=== PATIENT | male | born 1970 | race Caucasian/White ===

== ENCOUNTER 2017-06-04 16:06 | Inpatient (IN) | END 2017-06-05 13:30 | disposition home or self-care (01) | DRG 392 ==

== ENCOUNTER 2017-07-08 09:58 | Emergency (ER) | END 2017-07-08 12:17 | disposition home or self-care (01) ==

== ENCOUNTER 2017-09-15 01:16 | Inpatient (IN) | END 2017-09-23 17:10 | disposition home or self-care (01) | DRG 438 ==

== ENCOUNTER 2017-11-18 12:56 | Emergency (ER) | END 2017-11-18 18:21 | disposition home or self-care (01) ==

== ENCOUNTER 2018-06-14 20:49 | Emergency (ER) | payer OTHER ==
[~2018-06-14] VITALS: Ht 172.7 cm; Wt 96.3 kg
[2018-06-14 21:13] VITALS: Ht 172.7 cm; Wt 96.3 kg
[2018-06-14] MEDS ORDERED: SOD CHLORIDE 0.9% 960 ML IV ONE (21:30)
[2018-06-14] MEDS ORDERED: ONDANSETRON 4 MG INJ IV STA (23:02)
[2018-06-14] MEDS ORDERED: LIDOCAINE/MYLANTA 40 ML BTL PO ONE (23:30)
--- NOTE | 2018-06-15 00:37 | ERD ---
ER Documentation Chief Complaint Chief Complaint Pt c/o weak and dizzy hx of HTN and DM HPI Is a 48-year-old complains of weakness and dizziness epigastric abdominal pain. Patient has history of hypertension and diabetes. Pain in epigastric region is mild to moderate intensity with no exacerbating relieving factors. Weakness is generalized with no focality. Denies any difficulty talking. Denies any difficulty ambulating. Denies any other current issues. ROS All systems reviewed and are negative except as per history of present illness. Medications Home Meds No Active Prescriptions or Reported Meds Allergies Allergies: Coded Allergies: morphine (Verified Allergy, Mild, 11/18/17) rashes, itch after administered morphine PMhx/Soc History of Surgery: No Anesthesia Reaction: No Hx Neurological Disorder: No Hx Respiratory Disorders: No Hx Cardiac Disorders: No Hx Psychiatric Problems: No Hx Miscellaneous Medical Probl: Yes (DM) Hx Alcohol Use: No Hx Substance Use: No Hx Tobacco Use: No Smoking Status: Never smoker Physical Exam Vitals Vital Signs Date Temp Pulse Resp B/P (MAP) Pulse Ox O2 O2 Flow FiO2 Time Delivery Rate 06/15/18 97.4 86 20 135/82 97 Room Air 00:03 (99) 06/14/18 97.4 82 13 155/90 96 Room Air 23:15 (111) 06/14/18 97.4 80 13 150/100 96 Room Air 22:34 (117) 06/14/18 97.4 79 20 157/103 96 Room Air 21:50 (121) 06/14/18 97.4 89 20 183/109 96 21:13 (133) Physical Exam Const: No acute distress Head: Atraumatic Eyes: Normal Conjunctiva ENT: Normal External Ears, Nose and Mouth. Neck: Full range of motion. No meningismus. Resp: Clear to auscultation bilaterally Cardio: Regular rate and rhythm, no murmurs Abd: Soft, non tender, non distended. Normal bowel sounds Skin: No petechiae or rashes Back: No midline or flank tenderness Ext: No cyanosis, or edema Neur: Awake and alert Psych: Normal Mood and Affect Result Diagram: 06/14/18214506/14/182145 Results 24 hrs Laboratory Tests Test 06/14/18 21:12 06/14/18 21:27 06/14/18 21:44 06/14/18 21:46 Bedside Glucose 157 mg/dL 140 mg/dL Blood Gas Blood venous Specimen Source Arterial Blood 06/14/2018 9:38: Date Drawn 10 PM Arterial Blood VENOUS LINE Gas Puncture Site Jarred Test N/A Venous Blood pH 7.399 Venous Blood 38.2 mmHG pCO2 (Temp Corrected) Venous Blood pO2 72.5 mmHG (Temp Corrected) Venous Blood 23.1 mmol/L HCO3 Venous Blood 93.6 mmHG Oxygen Saturation Venous Blood -1.4 mmol/L Base Excess Venous Blood 15.2 g/dl Total Hemoglobin Venous Blood 93.3 % Oxyhemoglobin Venous Blood 0.2 % Methemoglobin Carboxyhemoglobi 0.1 % n Blood Gas 37.0 C Temperature Blood Gas ROOM AIR Modality FiO2 21.0 % Blood Gas AA Notified Whom Blood Gas 06/14/2018 9:45: Notified Time 05 PM White Blood 4.0 10^3/ul Count Red Blood Count 5.01 10^6/ul Hemoglobin 14.5 g/dl Hematocrit 40.9 % Mean Corpuscular 81.6 fl Volume Mean Corpuscular 28.9 pg Hemoglobin Mean Corpuscular 35.5 g/dl Hemoglobin Joan nt Red Cell 12.7 % Distribution Width Platelet Count 263 10^3/UL Mean Platelet 8.5 fl Volume Immature 0.300 % Granulocytes % Neutrophils % 43.5 % Lymphocytes % 44.1 % Monocytes % 7.3 % Eosinophils % 3.8 % Basophils % 1.0 % Nucleated Red 0.0 /100WBC Blood Cells % Immature 0.010 10^3/ul Granulocytes # Neutrophils # 1.7 10^3/ul Lymphocytes # 1.7 10^3/ul Monocytes # 0.3 10^3/ul Eosinophils # 0.2 10^3/ul Basophils # 0.0 10^3/ul Nucleated Red 0.0 10^3/ul Blood Cells # Urine Color YELLOW Urine Clarity CLEAR Urine pH 7.0 Urine Specific 1.013 [place] Urine Ketones NEGATIVE mg/dL Urine Nitrite NEGATIVE mg/dL Urine Bilirubin NEGATIVE mg/dL Urine NEGATIVE mg/dL Urobilinogen Urine Leukocyte NEGATIVE Ginette/ul Esterase Urine Hemoglobin NEGATIVE mg/dL Urine Glucose NEGATIVE mg/dL Urine Total NEGATIVE mg/dl Protein Sodium Level 142 mmol/L Potassium Level 4.2 mmol/L Chloride Level 102 mmol/L Carbon Dioxide 23 mmol/L Level Anion Gap 17 Blood Urea 8 mg/dl Nitrogen Creatinine 0.72 mg/dl Est Glomerular > 60 mL/min Filtrat Rate mL/min Glucose Level 147 mg/dl Calcium Level 9.7 mg/dl Phosphorus Level 4.6 mg/dl Magnesium Level 1.7 mg/dl Total Bilirubin 0.3 mg/dl Direct Bilirubin 0.00 mg/dl Indirect 0.3 mg/dl Bilirubin Aspartate Amino 53 IU/L Transf (AST/SGOT ) Alanine 46 IU/L Aminotransferase (ALT/SGPT) Alkaline 84 IU/L Phosphatase Troponin I < 0.012 ng/ml Total Protein 8.2 g/dl Albumin 4.6 g/dl Lipase 86 U/L Current Medications Medications Dose Sig/Bridger Start Time Status Last (Trade) Ordered Route PRN Stop Time Admin Dose Reason Admin Sodium 960 ml @ ONCE ONCE 06/14/18 DC 06/14/18 Chloride 960 mls/hr IV 21:30 21:46 06/14/18 22:29 Ondansetron 4 mg ONCE STAT 06/14/18 DC 06/14/18 HCl (Zofran IV 23:02 23:16 Inj) 06/14/18 23:03 40 ml ONCE ONCE 06/14/18 DC 06/14/18 Miscellaneous PO 23:30 23:49 Medication 06/14/18 23:31 (Gi Cocktail (2)) Procedures/MDM Emergency department course: Patient seen and evaluated triage nurse. Placed in bed from evaluation. Placed on continuous monitoring. Had a stat EKG and a stat chest x-ray. CT scan of his head done for generalized acute weakness. Serial exams were stable. Patient was given GI medications including a GI cocktail and Zofran. Diagnostic data: EKG: Rate/Rhythm: [Normal Sinus Rhythm] QRS, ST, T-waves: [No changes consistent w/ acute ischemia] Impression: [No evidence of ischemia or arrhythmia] Chest X-ray 1V Interpreted by me: Soft Tissue: No acute abnormali ties Bones: No acute abnormalities Mediastinum/Cardiac Silhouette/Lungs: [No acute abnormalities] Medical decision making: Patient's gastrointestinal symptoms have stabilized while in the department. No evidence of severe dehydration, sepsis, or surgical abdomen. Extensive discussion with family and patient that occult disease cannot be ruled out. 8 hour recheck for repeat abdominal exam is planned. Departure Diagnosis: Primary Impression: Gastritis Gastritis type: unspecified gastritis Chronicity: unspecified Gastritis bleeding: presence of bleeding unspecified Qualified Codes: K29.70 - Gastritis, unspecified, without bleeding Condition: Stable CHATO ODOM Jun 15, 2018 00:37
[2018-06-15] MEDS ORDERED: SUCR1TAB56 PO (00:38)
[2018-06-15] MEDS ORDERED: RANI150T35 PO (00:38)
[2018-06-15 01:04] VITALS: BP 167/106; PULSE 80; RESP 20
== END 2018-06-15 01:12 | disposition home or self-care (01) ==
LOC: E/R 20:49
DX: K29.70 Gastritis, unspecified, without bleeding (principal); I10 Essential (primary) hypertension; E11.9 Type 2 diabetes mellitus without complications
CPT/HCPCS: 36415; 70450; 71045; 80048; 80076; 81003; 82803; 82962; 83690; 83735; 84100; 84484; 85025; 93005; 96374; J2405; J7030; Z7502; Z7610

== ENCOUNTER 2018-07-16 03:57 | Emergency (ER) | payer OTHER ==
[~2018-07-16] VITALS: Ht 172.7 cm; Wt 95.8 kg
[~2018-07-16 03:57] MED LIST: RANI150T35 PO; SUCR1TAB56 PO
[2018-07-16 04:00] VITALS: Ht 172.7 cm; Wt 95.8 kg
[2018-07-16] MEDS ORDERED: SOD CHLORIDE 0.9% 1,000 ML IV STA (04:53)
[2018-07-16] MEDS ORDERED: FAMOTIDINE 20 MG INJ IV STA (04:53)
[2018-07-16] MEDS ORDERED: ONDANSETRON 4 MG INJ IV STA (04:53)
[2018-07-16] MEDS ORDERED: BELLADONNA/PHENOBARBITAL TAB PO STA (04:53)
[2018-07-16] MEDS ORDERED: LIDOCAINE/MYLANTA 40 ML BTL PO STA (04:53)
[2018-07-16] MEDS ORDERED: FENTAnyl 50 MCG/ML VIAL IV ONE (05:00)
--- NOTE | 2018-07-16 05:30 | ERD ---
ER Documentation Chief Complaint Chief Complaint abdominal pain since 1700 yesterday HPI This is a 48-year-old male with a past medical history of diabetes, alcohol abuse, gastritis/duodenitis, pancreatitis who is presenting with upper abdominal pain beginning at around 5 PM yesterday. The patient reports being with family over the last several days and drinking heavily. He reports drinking approximately 12 beers a day over the last several days. The patient endorses nausea but no vomiting. He does not endorse any constipation or diarrhea. He has not had any black or bloody or tarry stools. He has not had any dysuria or hematuria or urgency or frequency. The patient reports taking Carafate and ranitidine as previously prescribed, but that did not help his symptoms. The patient denies fever or chills. The patient has had no headache or vision changes. The patient does not endorse neck or back pain. The patient denies lightheadedness or dizziness. The patient has had no chest pain or trouble breathing. The patient has had no focal deficits. The patient has had no weakness or numbness or tingling to the face or extremities. ROS All systems reviewed and are negative except as per history of present illness. Medications Home Meds Active Scripts Ondansetron Hcl* (Zofran*) 8 Mg Tablet, 8 MG PO Q6H PRN for NAUSEA AND OR VOMITING, #20 TAB Prov:OSBALDO CEDENO MD 07/16/18 Omeprazole* (Omeprazole*) 40 Mg Capsule.dr, 40 MG PO DAILY, #14 CAP Prov:OSBALDO CEDENO MD 07/16/18 Ranitidine Hcl* (Zantac*) 150 Mg Tablet, 150 MG PO BID PRN for EPIGASTRIC PAIN, #30 TAB Prov:CHATO ODOM 06/15/18 Sucralfate* (Carafate*) 1 Gm Tab, 1 GM PO QID, #30 TAB Prov:CHATO ODOM 06/15/18 Allergies Allergies: Coded Allergies: morphine (Verified Allergy, Mild, 11/18/17) rashes, itch after administered morphine PMhx/Soc History of Surgery: No Anesthesia Reaction: No Hx Neurological Disorder: No Hx Respiratory Disorders: No Hx Cardiac Disorders: Yes (Diabetes) Hx Psychiatric Problems: No Hx Miscellaneous Medical Probl: Yes (Gastritis, duodenitis, pancreatitis) Hx Alcohol Use: Yes (Alcoholism) Hx Substance Use: No Hx Tobacco Use: No Smoking Status: Never smoker FmHx Family History: diabetes Physical Exam Vitals Vital Signs Date Temp Pulse Resp B/P (MAP) Pulse Ox O2 O2 Flow FiO2 Time Delivery Rate 07/16/18 97.9 80 18 151/99 97 Room Air 05:14 (116) 07/16/18 97.9 78 18 157/112 97 Room Air 04:12 (127) 07/16/18 97.9 93 18 206/112 97 04:00 (143) Physical Exam Const: No apparent distress, well-developed, well-nourished Head: Normocephalic, Atraumatic Eyes: Normal Conjunctiva. Extraocular movements intact. ENT: Normal External Ears, Nose and Mouth. Neck: Full range of motion. No meningismus. Resp: Clear to auscultation bilaterally, No wheezes, rales or rhonchi Cardio: Regular rate and rhythm. No murmurs, rubs or gallops Abd: Soft, non distended. Epigastric tenderness to palpation. Normal bowel sounds Skin: No petechiae or rashes Back: No midline tenderness. No CVA tenderness Ext: No cyanosis, or edema Neur: Awake and alert, oriented 4. Cranial nerves intact. No facial droop. Normal strength, sensation and coordination. Psych: Normal Mood and Affect Result Diagram: 07/16/187 07/16/18436 Results 24 hrs Laboratory Tests Test 07/16/18 04:37 07/16/18 04:48 White Blood Count 3.0 10^3/ul Red Blood Count 5.05 10^6/ul Hemoglobin 14.8 g/dl Hematocrit 40.9 % Mean Corpuscular Volume 81.0 fl Mean Corpuscular Hemoglobin 29.3 pg Mean Corpuscular Hemoglobin Concent 36.2 g/dl Red Cell Distribution Width 12.2 % Platelet Count 175 10^3/UL Mean Platelet Volume 8.4 fl Immature Granulocytes % 1.000 % Neutrophils % 33.6 % Lymphocytes % 55.7 % Monocytes % 7.0 % Eosinophils % 1.7 % Basophils % 1.0 % Nucleated Red Blood Cells % 0.0 /100WBC Immature Granulocytes # 0.030 10^3/ul Neutrophils # 1.0 10^3/ul Lymphocytes # 1.7 10^3/ul Monocytes # 0.2 10^3/ul Eosinophils # 0.1 10^3/ul Basophils # 0.0 10^3/ul Nucleated Red Blood Cells # 0.0 10^3/ul Sodium Level 139 mmol/L Potassium Level 4.0 mmol/L Chloride Level 100 mmol/L Carbon Dioxide Level 23 mmol/L Anion Gap 16 Blood Urea Nitrogen 7 mg/dl Creatinine 0.64 mg/dl Est Glomerular Filtrat Rate mL/min > 60 mL/min Glucose Level 153 mg/dl Calcium Level 9.4 mg/dl Total Bilirubin 0.6 mg/dl Direct Bilirubin 0.00 mg/dl Indirect Bilirubin 0.6 mg/dl Aspartate Amino Transf (AST/SGOT) 59 IU/L Alanine Aminotransferase (ALT/SGPT) 43 IU/L Alkaline Phosphatase 99 IU/L Total Protein 8.4 g/dl Albumin 4.3 g/dl Globulin 4.10 g/dl Albumin/Globulin Ratio 1.04 Lipase 125 U/L Urine Color YELLOW Urine Clarity CLEAR Urine pH 8.0 Urine Specific [place] 1.012 Urine Ketones TRACE mg/dL Urine Nitrite NEGATIVE mg/dL Urine Bilirubin NEGATIVE mg/dL Urine Urobilinogen NEGATIVE mg/dL Urine Leukocyte Esterase NEGATIVE Ginette/ul Urine Hemoglobin NEGATIVE mg/dL Urine Glucose NEGATIVE mg/dL Urine Total Protein NEGATIVE mg/dl Current Medications Medications Dose Sig/Bridger Start Time Status Last (Trade) Ordered Route PRN Stop Time Admin Dose Reason Admin Sodium 1,000 ml @ Q1H STAT 07/16/18 07/16/18 Chloride 1,000 mls/hr IV 04:53 05:07 07/16/18 05:52 Ondansetron 4 mg ONCE STAT 07/16/18 DC 07/16/18 HCl (Zofran IV 04:53 05:05 Inj) 07/16/18 04:55 Famotidine 20 mg ONCE STAT 07/16/18 DC 07/16/18 (Pepcid Iv) IV 04:53 05:06 07/16/18 04:55 40 ml ONCE STAT 07/16/18 DC 07/16/18 Miscellaneous PO 04:53 05:05 Medication 07/16/18 04:55 (Gi Cocktail (2)) Belladonna/ 2 tab ONCE STAT 07/16/18 DC 07/16/18 Phenobarbital PO 04:53 05:06 () 07/16/18 04:55 Fentanyl 50 mcg ONCE ONCE 07/16/18 DC 07/16/18 (Sublimaze) IV 05:00 05:06 07/16/18 05:01 Procedures/MDM MDM The patient's presentation warrants further investigation. Previous medical re cords, if available, were reviewed. LABS The patient's laboratory testing was obtained and reviewed. No emergent treatment was required unless described below. CBC: Mild leukopenia, which appears chronic compared to previous studies. No macrocytosis. No E/o systemic infection or severe anemia or thrombocytopenia Chemistry: No E/o severe acidosis or alkalosis or renal failure or liver disease or diabetic ketoacidosis Lipase: No E/o pancreatitis Urine: No E/o acute infection or hematuria EKG EKG read by me: Rate/Rhythm: Regular rate and rhythm at a rate of 78 bpm Intervals: Normal [place]: Normal Impression: No evidence of acute ischemia or arrhythmia IMAGING Imaging and Radiology interpretation reviewed. CXR 1V Interpreted by me Soft Tissue: No acute abnormalities Bones: No acute abnormalities Mediastinum/Cardiac Silhouette: Unremarkable. No widened mediastinum. Lungs: No acute abnormalities. Normal pulmonary vasculature. No pneumothorax. No pulmonary edema. Clear costal diaphragmatic angles. No pleural effusions. No opacity or consolidations concerning for pneumonia. TREATMENT/DISPOSITION The patient presents with upper abdominal pain. The patient has been drinking heavily, and I am suspicious of alcoholic gastritis. The patient was treated with IV fluids, Zofran, Pepcid, a GI cocktail, and eventually fentanyl in the emergency department with significant improvement of his symptoms. I encouraged the patient to continue taking the medications previously prescribed. I will also add on Prilosec and Zofran. The patient understands that continued heavy alcohol use will lead to significant irritation of the stomach. The patient does not have any evidence of peritonitis. The patient does not have clinical symptoms concerning for mesenteric ischemia or ischemic colitis. The patient does not have right upper quadrant tenderness, and I have low suspicion for gallstones, cholecystitis or biliary colic. The patient's lipase is within normal limits. I have low suspicion for pancreatitis. The patient does not have any right lower quadrant tenderness, or periumbilical tenderness. I have low suspicion for appendicitis. The patient does not have suprapubic tenderness. I have decreased suspicion for cystitis. The patient does not have any left low er quadrant tenderness, and I have low suspicion for diverticulosis or diverticulitis. The patient does not have any flank tenderness. The patient does not have gross hematuria. I have decreased suspicion for nephrolithiasis or renal colic. The patient does not have any palpable pulsatile mass or severe abdominal pain radiating to the back. I have low suspicion for aortic aneurysm, dissection or rupture. DISCHARGE Upon reevaluation of the patient, symptoms have improved. No emergent diagnoses were identified. At this time, I feel that the patient stable for discharge. The patient was instructed to follow-up with a primary care physician in 1-3 days. The patient will be given strict precautions with which to return to the emergency department. Prescriptions: Prilosec, Zofran The patient's blood pressure was elevated at greater than 120/80 while in the emergency department. The patient was otherwise stable with no evidence of hypertensive urgency or emergency. The patient does not require admission for blood pressure control. I have discussed with the patient the risks of hy pertension. I have instructed the patient to return to the ER for any new or worsening symptoms including chest pain, shortness of breath, headache, blurred vision, confusion, nausea, vomiting or LOC. I have advised the patient to follow up with the primary care physician for outpatient monitoring and treatment for hypertension in 1-3 days. Disclaimer: Inadvertent spelling and grammatical errors are likely due to EHR/dictation software use and do not reflect on the overall quality of patient care. Note that the electronic time recorded on this note does not necessarily reflect the actual time of the patient encounter. Departure Diagnosis: Primary Impression: Alcoholic gastritis Chronicity: acute Gastritis bleeding: without bleeding Qualified Codes: K29.20 - Alcoholic gastritis without bleeding Additional Impressions: Alcohol abuse Epigastric pain Nausea Condition: Stable Patient Instructions: Epigastric Pain (Uncertain Cause), Gastritis Vs. Ulcer, Nausea Additional Instructions: Thank you for for coming to [facility] for your care today. Please ask your nurse or provider if you have questions about your care today and do not leave until all your questions have been answered. Please use any medications given as directed and follow-up with your doctor (or the doctor you were referred to) in the next 1-3 days. If you do not have a primary care doctor you may follow up at the [facility] or [facility] (listed below). You may also use motrin and tylenol as needed for fever and/or pain unless instructed otherwise by your provider or nurse. Indications for more urgent follow-up have been discussed, but you may return to the Emergency Department at ANY time for any worrisome or worsening symptoms. If you have abdominal pain, please know that no test or exam you received is perfect and you should follow up within 8 hours for continued pain. If you had any imaging studies today, such as an X-Ray or CT Scan, these studies will be reviewed later by a radiologist. You will be called if there are important findings that were not identified today, so make sure the contact information you provided at registration is correct. If you received any narcotic pain control medicine today, such as Vicodin, Morphine or Dilaudid, your coordination and judgment may be affected for a number of hours. Please do not drive or operate heavy machinery, and you may want someone to assist you at home. If you were given a prescription for narcotic medication, be aware that it is very addictive- use sparingly and only if necessary. PLEASE SEEK FURTHER EVALUATION AND MANAGEMENT AT YOUR DOCTORS OFFICE WITHIN THE NEXT 1-3 DAYS. IT IS YOUR RESPONSIBILITY TO MAKE AN APPOINTMENT FOR FOLOW-UP CARE. IF YOU HAVE A PRIMARY DOCTOR, PLEASE CALL THEIR OFFICE TO SCHEDULE AN APPOINTMENT FOR FOLLOW UP. IF YOU DO NOT HAVE A PRIMARY DOCTOR YOU CAN CALL OUR PHYSICIAN REFERRAL HOTLINE AT IF YOU CAN NOT AFFORD TO SEE A PHYSICIAN YOU CAN CHOSE FROM THE FOLLOWING [facility] CLINICS: [facility] [address] [facility] [facility] [address] [facility] [address] [facility]. [facility] [address] [facility] [address] [facility]. [facility]. [address] OSBALDO SAUL MD Jul 16, 2018 05:29
[2018-07-16] MEDS ORDERED: OMEP40CA6 PO (05:31)
[2018-07-16] MEDS ORDERED: ONDA8TAB9 PO (05:31)
[2018-07-16 06:01] VITALS: BP 152/82; PULSE 88; RESP 19
== END 2018-07-16 06:03 | disposition home or self-care (01) ==
LOC: E/R 03:57
DX: K29.20 Alcoholic gastritis without bleeding (principal); E11.9 Type 2 diabetes mellitus without complications; F10.10 Alcohol abuse, uncomplicated
CPT/HCPCS: 36415; 71045; 80053; 81003; 83690; 85025; 93005; 96374; 96375; J2405; J3010; J7030; Z7502; Z7610

== ENCOUNTER 2018-09-15 12:57 | Inpatient (IN) | payer OTHER ==
[~2018-09-15] VITALS: Ht 172.7 cm; Wt 95.4 kg
[~2018-09-15 12:57] MED LIST changes: +OMEP40CA6 PO; +ONDA8TAB9 PO
[2018-09-15 15:17] VITALS: BP 123/83; PULSE 103; RESP 18
[2018-09-15 15:27] VITALS: Ht 172.7 cm; Wt 95.4 kg
[2018-09-15] MEDS ORDERED: D5W-0.45 NACL + KCL 20 MEQ 1,000 ML IV SCH (16:06)
[2018-09-15] MEDS ORDERED: ACETAMINOPHEN 650 MG SUPP PR PRN (16:30)
[2018-09-15] MEDS ORDERED: ACETAMINOPHEN 325 MG TAB PO PRN (16:30)
[2018-09-15] MEDS ORDERED: NACL 0.9% 3 ML SYG IV SCH (16:30)
[2018-09-15] MEDS: HYDROmorphONE 1 MG/ML SYG IV PRN (16:31)
[2018-09-15] MEDS: SOD CHLORIDE 0.9% 1,000 ML IV SCH (16:32)
--- NOTE | 2018-09-15 16:49 | HP ---
Date/Time of Note Date/Time of Note DATE: 09/15/18 TIME: 16:43 Assessment/Plan VTE Prophylaxis SCD applied (from Nsg): Yes Pharmacological prophylaxis: NA/contraindicated Pharm contraindication: low risk/ambulating Lines/Catheters Urinary Cath still in place: No Assessment/Plan Hospital Course 1. Acute pancreatitis. -f/u CHD - continue IVF -Currently n.p.o. 2. Hypertriglyceridemia. -f/u CHD panel 3. Diabetes mellitus type II. -f/u a1c -start on insulin regimen 5. hx Alcohol abuse. -had negative ethanol level on admission - will monitor Discussed POC with Dr. Torres Results 24hrs Laboratory Tests Test 09/15/18 15:37 Bedside Glucose 225 H HPI/ROS Admit Date/Time Admit Date/Time Sep 15, 2018 at 14:37 Hx of Present Illness This is a 48-year-old male with history of hepatitis, hyperlipidemia with hypertriglyceridemia, diabetes, alcohol abuse, who came to the hospital due to reports of abdominal pain with again diagnosis of pancreatitis. He reports he was in his normal state of health and ate dinner last night. Afterwards he woke up after sleeping and had progressively worse abdominal pain.. He reports that his last alcoholic beverage was 2 weeks ago. Due to worsening pain he did initially go to [facility] for further management and care. His initial abdominal ultrasound was unremarkable. As he denies any fevers or chills. He reports having severe epigastric abdominal pain. His lipase at [place] was seen at 871. In the hospital his ethanol level was also negative. Due to insurance issues patient was brought to [facility] for further man agement and care. Patient presented report having severe epigastric abdominal pain. We will evaluate him for the aformentiond issues ROS 12 point review of systems obtained and entirely negative except as mentioned in the history of present illness PMH/Family/Social Past Medical History Medical/surgical history 1. Reported alcohol abuse 2. Hyperlipidemia 3. Hypertension 4. Pancreatitis 5. Diabetes Medications Current Medications IV Flush (NS 3 ml) 3 ml PER PROTOCOL IV ; Start 09/15/18 at 16:30 Ondansetron HCl (Zofran Inj) 4 mg Q6H PRN IV NAUSEA/VOMITING; Start 09/15/18 at 16:30 Acetaminophen (Tylenol Tab) 650 mg Q6H PRN PO .PAIN 1-3 OR TEMP; Start 09/15/18 at 16:30 Acetaminophen (Tylenol Supp) 650 mg Q6H PRN ND .PAIN 1-3 OR TEMP; Start 09/15/18 at 16:30 Famotidine (Pepcid Iv) 20 mg Q12 IV ; Start 09/15/18 at 21:00 Diagnostic Test (Pha) (Accu-Chek) 1 ea 02 XX ; Start 09/16/18 at 02:00 Insulin Glargine (Lantus) 14 units DAILY@0800 SC ; Start 09/16/18 at 08:00 Sodium Chloride 1,000 ml @ 125 mls/hr Q8H IV Last administered on 09/15/18at 16:32; Admin Dose 125 MLS/HR; Start 09/15/18 at 16:30 Hydromorphone HCl (Dilaudid) 1 mg Q4H PRN IV SEVERE PAIN LEVEL 7-10 Last administered on 09/15/18at 16:31; Admin Dose 1 MG; Start 09/15/18 at 16:30 Coded Allergies: morphine (Verified Allergy, Mild, 09/15/18) rashes, itch after administered morphine Past Surgical History Past Surgical Hx: no surgical history, other Family History Significant Family History: diabetes Social History Alcohol Use: other (Alcohol consumer but unknown frequency) Smoking Status: Never smoker Drug Use: none Exam/Review of Systems Vital Signs Vitals Vital Signs Date Temp Pulse Resp B/P (MAP) Pulse Ox O2 O2 Flow FiO2 Time Delivery Rate 09/15/18 98.6 15:59 09/15/18 103 18 123/83 92 Room Air 15:17 (96) Exam Constitutional: alert, oriented Psych: nl mood/affect Head: normocephalic Eyes: nl conjunctiva Neck: supple, non-tender Respiratory: clear to auscultation Cardiovascular: regular rate and rhythm Gastrointestinal: soft, non-tender Neurological: KENO ATTENDANT II-XII intact, nl mental status, nl speech REGIDORJADYN NP Sep 15, 2018 16:49
[2018-09-15] MEDS: ONDANSETRON 4 MG INJ IV PRN (18:47)
[2018-09-15] MEDS ORDERED: GLUCAGON 1 MG INJ IM PRN (19:00)
[2018-09-15] MEDS ORDERED: DEXTROSE 50% 50 ML SYRINGE IV PRN ×2 (19:00)
[2018-09-15] MEDS ORDERED: GLUCOSE GEL 15 GRAM TUBE PO PRN ×2 (19:00)
[2018-09-15] MEDS ORDERED: GLUCOSE GEL 15 GRAM TUBE BUCCAL PRN (19:00)
[2018-09-15 19:40] VITALS: BP 86/52; PULSE 65; RESP 18
[2018-09-15] MEDS: FAMOTIDINE 20 MG INJ IV SCH (20:06)
[2018-09-15] MEDS: INSULIN ASPART [NOVOLOG] 3 ML PEN SC SCH (20:20)
[2018-09-15] MEDS ORDERED: KETOROLAC 30 MG INJ IV ONE (22:50)
[2018-09-15] MEDS ORDERED: SOD CHLORIDE 0.9% 1,000 ML IV ONE (23:00)
[2018-09-16] VITALS (15 sets, daily range): BP systolic 92–146; BP diastolic 49–102; PULSE 86–120; RESP 16–32
[2018-09-16] MEDS: SOD CHLORIDE 0.9% 1,000 ML IV SCH ×5 (00:30→16:53)
[2018-09-16] MEDS ORDERED: ACCU-CHEK XX SCH ×2 (02:00)
[2018-09-16] MEDS ORDERED: HYDROmorphONE 0.5 MG/0.5 ML SYG IV ONE (02:08)
[2018-09-16] MEDS: ONDANSETRON 4 MG INJ IV PRN (02:19)
[2018-09-16] MEDS: HYDROmorphONE 1 MG/ML SYG IV PRN ×5 (05:33→20:46)
[2018-09-16] MEDS: INSULIN ASPART [NOVOLOG] 3 ML PEN SC SCH ×2 (08:00→12:13)
[2018-09-16] MEDS ORDERED: INSULIN GLARGINE [LANTus] (100 UNITS/ML) SYG SC SCH ×2 (08:00→23:30)
[2018-09-16] MEDS: FAMOTIDINE 20 MG INJ IV SCH ×2 (08:21→22:14)
[2018-09-16] MEDS ORDERED: INSULIN LISPRO 100 UNIT/ML VIAL SC ONE ×2 (09:00→11:41)
[2018-09-16] MEDS ORDERED: ACCU-CHEK XX ONE ×3 (09:00→12:00)
[2018-09-16] MEDS ORDERED: INSULIN ASPART [NOVOLOG] 3 ML PEN SC ONE ×2 (09:30→12:00)
--- NOTE | 2018-09-16 10:52 | PN ---
Date/Time of Note Date/Time of Note DATE: 09/16/18 TIME: 10:49 Assessment/Plan VTE Prophylaxis [place] [facility] [place] risk: 3 SCD applied [place] [facility] [place] Yes Pharmacological prophylaxis: NA/contraindicated Pharm contraindication: low risk/ambulating Lines/Catheters IV Catheter Type (from [facility]): Peripheral IV Urinary Cath still in place: No Assessment/Plan Hospital Course 1. Acute pancreatitis. -f/u CHD - continue IVF -Currently n.p.o. - [place] Criteria Score roughly: 6 2. Hypertriglyceridemia. -f/u CHD panel - labs pending 3. Diabetes mellitus type II. -continue on insulin regimen - to be adjusted due to persistent hyperglycemia 5. hx Alcohol abuse. -had negative ethanol level on admission - will monitor Disposition and plan. Insulin regimen adjusted for better glucose control. Awaiting lab results. Continue IV fluids and analgesics. Discussed POC with Dr. Torres ADDENDUM 11:45AM: patient lab results did come back. Patient with acute renal failure and hyperkalemic with electrolyte ab normalities. Provide with calcium gluconat e, insulin, nebulizer treatment. Route Driver Salesperson consultation. Renal ultrasound ordered. Aggressive IV fluids. no bed in telemetry available, transfer to icu Result Diagram: 09/16/18 0444 Results 24hrs Laboratory Tests Test 09/15/18 15:37 09/15/18 17:54 09/15/18 20:07 09/16/18 01:52 Bedside Glucose 225 H 236 H 287 H 303 H Test 09/16/18 04:44 09/16/18 07:56 09/16/18 09:12 09/16/18 09:20 White Blood Count 10.6 # Red Blood Count 5.96 Hemoglobin 17.0 Hematocrit 48.8 Mean Corpuscular 81.9 L Volume Mean Corpuscular 28.5 L Hemoglobin Mean Corpuscular 34.8 Hemoglobin Concent Red Cell 12.6 Distribution Width Platelet Count 262 # Mean Platelet Volume 9.5 Immature 0.600 H Granulocytes % Neutrophils % Segmented 25 L Neutrophils % (Manual) Band Neutrophils % 54 H (Manual) Lymphocytes % Lymphocytes % 16 (Manual) Reactive Lymphocytes 1 H % (Manual) Monocytes % Monocytes % (Manual) 3 Eosinophils % Basophils % Basophils % (Manual) 1 Nucleated Red Blood 0.0 Cells % Immature 0.060 H Granulocytes # Neutrophils # Neutrophils # 3.3 (Manual) Band Neutrophils # 5.7 H Lymphocytes (Manual) 1.6 Lymphocytes # Reactive Lymphocytes 0.1 H # Monocytes # Monocytes # (Manual) 0.3 Eosinophils # Basophils # Basophils # (Manual) 0.1 H Nucleated Red Blood Cells # Platelet Estimate NORMAL Anisocytosis 1+ Microcytosis 1+ Spherocytes 1+ Hemoglobin A1c 6.6 H Bedside Glucose 324 H 300 H Sodium Level Pending Potassium Level Pending Chloride Level Pending Carbon Dioxide Level Pending Anion Gap Pending Blood Urea Nitrogen Pending Creatinine Pending Est Glomerular Pending Filtrat Rate mL/min Glucose Level Pending Calcium Level Pending Phosphorus Level Pending Magnesium Level Pending Total Bilirubin Pending Direct Bilirubin Pending Indirect Bilirubin Pending Aspartate Amino Pending Transf (AST/SGOT) Alanine Pending Aminotransferase (AL T/SGPT) Alkaline Phosphatase Pending Total Protein Pending Albumin Pending Globulin Pending Albumin/Globulin Pending Ratio Triglycerides Level Pending Cholesterol Level 307 H LDL Cholesterol, Pending Calculated HDL Cholesterol 19 L Cholesterol/HDL 16.1 Ratio Thyroid Stimulating Pending Hormone (TSH) Free Thyroxine Index Pending Thyroxine (T4) Pending Triiodothyronine Pending (T3) Uptake Test 09/16/18 10:38 Bedside Glucose 278 H Subjective 24 Hr Interval Summary Free Text/Dictation reports less abd pain Exam/Review of Systems Exam Vitals Vital Signs Date Temp Pulse Resp B/P (MAP) Pulse Ox O2 O2 Flow FiO2 Time Delivery Rate 09/16/18 98.3 86 18 106/67 94 Room Air 07:45 (80) Intake and Output 09/15/18 09/15/18 09/16/18 1515:00 23:00 07:00 IntakeIntake Total 200 ml 1880 ml OutputOutput Total 750 ml BalanceBalance 200 ml 1130 ml Exam Constitutional: alert, oriented Psych: nl mood/affect Head: normocephalic Eyes: nl conjunctiva Neck: supple, tender Respiratory: clear to auscultation Cardiovascular: regular rate and rhythm Gastrointestinal: soft, non-tender Neurological: METAPHYSICS TEACHER II-XII intact, nl mental status, nl speech Results Results 24hrs Laboratory Tests Test 09/15/18 15:37 09/15/18 17:54 09/15/18 20:07 09/16/18 01:52 Bedside Glucose 225 H 236 H 287 H 303 H Test 09/16/18 04:44 09/16/18 07:56 09/16/18 09:12 09/16/18 09:20 White Blood Count 10.6 # Red Blood Count 5.96 Hemoglobin 17.0 Hematocrit 48.8 Mean Corpuscular 81.9 L Volume Mean Corpuscular 28.5 L Hemoglobin Mean Corpuscular 34.8 Hemoglobin Concent Red Cell 12.6 Distribution Width Platelet Count 262 # Mean Platelet Volume 9.5 Immature 0.600 H Granulocytes % Neutrophils % Segmented 25 L Neutrophils % (Manual) Band Neutrophils % 54 H (Manual) Lymphocytes % Lymphocytes % 16 (Manual) Reactive Lymphocytes 1 H % (Manual) Monocytes % Monocytes % (Manual) 3 Eosinophils % Basophils % Basophils % (Manual) 1 Nucleated Red Blood 0.0 Cells % Immature 0.060 H Granulocytes # Neutrophils # Neutrophils # 3.3 (Manual) Band Neutrophils # 5.7 H Lymphocytes (Manual) 1.6 Lymphocytes # Reactive Lymphocytes 0.1 H # Monocytes # Monocytes # (Manual) 0.3 Eosinophils # Basophils # Basophils # (Manual) 0.1 H Nucleated Red Blood Cells # Platelet Estimate NORMAL Anisocytosis 1+ Microcytosis 1+ Spherocytes 1+ Hemoglobin A1c 6.6 H Bedside Glucose 324 H 300 H Sodium Level Pending Potassium Level Pending Chloride Level Pending Carbon Dioxide Level Pending Anion Gap Pending Blood Urea Nitrogen Pending Creatinine Pending Est Glomerular Pending Filtrat Rate mL/min Glucose Level Pending Calcium Level Pending Phosphorus Level Pending Magnesium Level Pending Total Bilirubin Pending Direct Bilirubin Pending Indirect Bilirubin Pending Aspartate Amino Pending Transf (AST/SGOT) Alanine Pending Aminotransferase (AL T/SGPT) Alkaline Phosphatase Pending Total Protein Pending Albumin Pending Globulin Pending Albumin/Globulin Pending Ratio Triglycerides Level Pending Cholesterol Level 307 H LDL Cholesterol, Pending Calculated HDL Cholesterol 19 L Cholesterol/HDL 16.1 Ratio Thyroid Stimulating Pending Hormone (TSH) Free Thyroxine Index Pending Thyroxine (T4) Pending Triiodothyronine Pending (T3) Uptake Test 09/16/18 10:38 Bedside Glucose 278 H Medications Medication Current Medications IV Flush (NS 3 ml) 3 ml PER PROTOCOL IV ; Start 09/15/18 at 16:30 Ondansetron HCl (Zofran Inj) 4 mg Q6H PRN IV NAUSEA/VOMITING Last administered on 09/16/18at 02:19; Admin Dose 4 MG; Start 09/15/18 at 16:30 Acetaminophen (Tylenol Tab) 650 mg Q6H PRN PO .PAIN 1-3 OR TEMP; Start 09/15/18 at 16:30 Acetaminophen (Tylenol Supp) 650 mg Q6H PRN [place] .PAIN 1-3 OR TEMP Last administered on 09/15/18at 20:06; Admin Dose 650 MG; Start 09/15/18 at 16:30 Famotidine (Pepcid Iv) 20 mg Q12 IV Last administered on 09/16/18at 08:21; Admin Dose 20 MG; Start 09/15/18 at 21:00 Insulin Glargine (Lantus) 14 units DAILY@0800 SC Last administered on 09/16/18at 08:01; Admin Dose 14 UNITS; Start 09/16/18 at 08:00 Sodium Chloride 1,000 ml @ 125 mls/hr Q8H IV Last administered on 09/16/18at 10:42; Admin Dose 125 MLS/HR; Start 09/15/18 at 16:30 Hydromorphone HCl (Dilaudid) 1 mg Q4H PRN IV SEVERE PAIN LEVEL 7-10 Last administered on 09/16/18at 09:14; Admin Dose 1 MG; Start 09/15/18 at 16:30 Diagnostic Test (Pha) (Accu-Chek) 1 ea 02 XX ; Start 09/16/18 at 02:00 Insulin Aspart (Novolog Insulin Pen) NOVOLOG *MILD* ALGORITHM WITH MEALS BEDTIME SC Last administered on 09/16/18at 08:00; Admin Dose 5 UNIT; Start 09/15/18 at 21:00 Miscellaneous Information 1 ea NOTE XX ; Start 09/15/18 at 19:00 Glucose (Glutose) 15 gm Q15M PRN PO DECREASED GLUCOSE; Start 09/15/18 at 19:00 Glucose (Glutose) 22.5 gm Q15M PRN PO DECREASED GLUCOSE; Start 09/15/18 at 19:00 Dextrose (D50w Syringe) 25 ml Q15M PRN IV DECREASED GLUCOSE; Start 09/15/18 at 19:00 Dextrose (D50w Syringe) 50 ml Q15M PRN IV DECREASED GLUCOSE; Start 09/15/18 at 19:00 Glucagon (Glucagen) 1 mg Q15M PRN IM DECREASED GLUCOSE; Start 09/15/18 at 19:00 Glucose (Glutose) 15 gm Q15M PRN BUCCAL DECREASED GLUCOSE; Start 09/15/18 at 19:00 JADYN DOWLING NP Sep 16, 2018 10:52
[2018-09-16] MEDS ORDERED: ALBUTEROL/IPRATROPIUM (NEB) 3 ML AMP HHN STA (11:38)
[2018-09-16] MEDS ORDERED: ALBUTEROL 0.083% (NEB) 2.5 MG/3 ML AMP HHN STA (11:58)
[2018-09-16] MEDS ORDERED: CALCIUM GLUCONATE 10% 2 GM in DEXTROSE 5% 100 ML IVPB ONE ×2 (12:00→13:00)
[2018-09-16] MEDS ORDERED: SODIUM PHOSPHATE 20 MEQ in SOD CHLORIDE 0.9% 250 ML IVPB ONE (13:00)
[2018-09-16] MEDS ORDERED: MAGNESIUM SULFATE 3 GM in DEXTROSE 5% 100 ML IVPB ONE (13:00)
[2018-09-16] MEDS: ACCU-CHEK XX SCH ×6 (16:00→21:00)
[2018-09-16] MEDS ORDERED: DEXTROSE 50% 50 ML SYRINGE IV PRN ×4 (16:00→18:00)
[2018-09-16] MEDS ORDERED: SODIUM POLYSTYRENE 15 GM KIT (POWDER + SORBITOL) PO ONE (16:00)
[2018-09-16] MEDS ORDERED: INSULIN REGULAR, HUMAN 100 UNIT in SOD CHLORIDE 0.9% 100 ML IV SCH ×4 (16:30→18:00)
[2018-09-16] MEDS ORDERED: SOD CHLORIDE 0.9% 1,000 ML IV ONE (17:30)
[2018-09-16] MEDS ORDERED: D10/0.45% NACL + KCL 30 MEQ 1,000 ML IV SCH (17:51)
[2018-09-16] MEDS ORDERED: D10/0.45% NACL + KCL 40 MEQ 1,000 ML IV SCH (17:51)
[2018-09-16] MEDS ORDERED: DEXTROSE 10%/0.45% NACL 1,000 ML IV SCH (17:51)
[2018-09-16] MEDS ORDERED: NS + KCL 40 MEQ 1,000 ML IV SCH (17:51)
[2018-09-16] MEDS ORDERED: NS + KCL 30 MEQ 1,000 ML IV SCH (17:51)
[2018-09-16] MEDS ORDERED: SOD CHLORIDE 0.9% 1,000 ML IV SCH (17:51)
[2018-09-16] MEDS: HYDROmorphONE 1 MG/ML SYG IV ONE ×2 (18:09→18:33)
[2018-09-16] MEDS ORDERED: CALCIUM GLUCONATE 10% 1 GM in DEXTROSE 5% 100 ML IVPB ONE (19:30)
[2018-09-16] MEDS: METHADONE (1 MG/ML 5 ML PO UD SYG) PO SCH (22:16)
--- NOTE | 2018-09-16 23:57 | CONS ---
DATE OF ADMISSION: 09/15/2018 DATE OF CONSULTATION: 09/16/2018 TYPE OF CONSULTATION: Nephrology. REASON FOR CONSULTATION: Acute kidney injury, hyperkalemia. PHYSICIAN REQUESTING CONSULT: ____. HISTORY OF PRESENT ILLNESS: This is a 48-year-old male with a past medical history of hepatitis, his tory of dyslipidemia, history of triglyceridemia, history of diabetes, history of ETOH abuse who repo rts to an outside hospital for abdominal pain with diagnosis of pancreatitis. The patient states he is in normal state of health until 1 day prior to admission when he started waking up sleeping with p rogressive worsening abdominal pain. The patient states that his abdominal pain progressively worse and as a result, he went to [facility]. Upon arrival, patient had ultrasound that was unremark able. He was subsequently transferred [facility]. Upon arrival, patient was place d on IV fluids. A CT scan of the abdomen and pelvis was obtained, which showed evidence of severe ac [place] pancreatitis and marked hepatic steatosis. The patient after 24 hours noted to have a significan t tachycardia and acute kidney injury and was subsequently transferred to intensive care unit. In terms of patient's renal history, the patient's prior baseline creatinine was 0.8 mg/dL. On admis levi, patient had initial creatinine of 2.84 mg/dL. The patient had hyperkalemia with a potassium le boris of 7.5 mEq per liter. The patient after being brought to the intensive care unit was started on aggressive IV hydration. Repeat potassium level eventually improved to 5.3 mEq per liter. There hav e been no reports of any hemoptysis, hematemesis or hematochezia. PAST MEDICAL HISTORY: As stated above, history of dyslipidemia, history of triglyceridemia, history of diabetes, history of pancreatitis and history of ETOH use. PAST SURGICAL HISTORY: None. FAMILY HISTORY: Positive for diabetes. SOCIAL HISTORY: Positive alcohol use. MEDICATIONS: The patient's medications have been reviewed. ALLERGIES: HAVE BEEN REVIEWED. THE PATIENT IS ALLERGIC TO MORPHINE. REVIEW OF SYSTEMS: A 14-point review of systems conducted. Pertinent positives stated in HPI, other jacobsen negative. PHYSICAL EXAMINATION: VITAL SIGNS: Blood pressure is 134/77, respirations 20, pulse 108, temperature 99.1. HEENT: Head is normocephalic. NECK: Supple. HEART: Regular rate. LUNGS: Show diminished breath sounds at the base. ABDOMEN: Soft, positive tenderness to palpation. EXTREMITIES: Negative for clubbing, cyanosis, no edema. DERMATOLOGIC: No rashes. MUSCULOSKELETAL: No joint effusions. NEUROLOGIC: No focal deficits. LABORATORY DATA: Has been reviewed. IMAGING STUDIES: Have been reviewed. Urinalysis has been reviewed. Renal ultrasound has been revie wed. ASSESSMENT AND PLAN: This is a 48-year-old male who presents with: 1. Oliguric acute kidney injury with previously normal baseline creatinine. Etiology of acute kidne y injury secondary to acute tubular necrosis due to severe pancreatitis. The patient's urinalysis sh ows evidence of granular casts consistent with tubular injury. The patient also noted to have FENa o f less than 1% and nonglomerular proteinuria. Etiology is consistent with decreased effective arteri al volume in the setting of acute pancreatitis. Recommendation and plan at this point is to continue patient on aggressive IV hydration. We will increase IV fluids to 175 mL per hour. We will give th e patient additional bolus of normal saline. We will continue to monitor renal function and hyperkal emia closely. If renal function should progressively decline, we would consider possible renal place ment therapy. 2. Severe hyperkalemia. Etiology secondary to acute kidney injury, hyperglycemia, metabolic acidosi s. The patient's potassium levels have improved with medical management, Kayexalate, IV insulin. We will continue to monitor and trend potassium levels closely. Continue to also correct underlying hy perglycemia, which will help shift potassium levels intracellularly. We will monitor closely. 3. Metabolic acidosis, etiology secondary to acute kidney injury. Continue to monitor. No need for bicarbonate therapy at this time. 4. Hyponatremia secondary to acute kidney injury. Continue to monitor. 5. Mineral bone disorder. The patient is hypocalcemic, etiology secondary to acute pancreatitis. P armond is to check an ionized calcium. We will replete with calcium gluconate and monitor closely. 6. Lactic acidosis secondary to acute pancreatitis. Continue IV fluids. Continue to trend lactic a jay levels. 6. Acute severe pancreatitis. Etiology may be secondary to hypertriglyceridemia, questionable alcoh ol use. Continue aggressive IV hydration. Continue n.p.o. Continue pain control. We will monitor closely. 7. Hypertriglyceridemia. Continue to monitor. Continue medical management. 8. Diabetes. Glucose levels remain elevated, consider insulin drip. 9. History of ETOH abuse. Monitor for any signs of acute withdrawals. Thank you ____ for this interesting consult. It will be a pleasure to follow patient with you th roughout the hospital course. Please note I spent over 30 minutes of critical care time with this patient Dictated By: OTONIEL NASCIMENTO DO NR/NTS Conf#: [id number] DID#: [id number] CC: BRANDY MARTINEZ MD;*EndCC*
[2018-09-17] VITALS (23 sets, daily range): BP systolic 123–156; BP diastolic 60–108; PULSE 105–121; RESP 12–32
[2018-09-17] MEDS ORDERED: CALCIUM GLUCONATE 10% 2 GM in DEXTROSE 5% 100 ML IVPB ONE ×5 (00:30→19:30)
[2018-09-17] MEDS: METHADONE (1 MG/ML 5 ML PO UD SYG) PO SCH ×5 (01:11→18:55)
[2018-09-17] MEDS: HYDROmorphONE 1 MG/ML SYG IV PRN ×6 (01:19→21:19)
[2018-09-17] MEDS: SOD CHLORIDE 0.9% 1,000 ML IV SCH ×2 (02:58→13:08)
[2018-09-17] MEDS: ACCU-CHEK XX SCH ×9 (03:00→11:00)
[2018-09-17] MEDS ORDERED: DEXTROSE 50% 50 ML SYRINGE IV PRN ×4 (03:00→13:00)
[2018-09-17] MEDS: INSULIN HUMAN REGULAR 100 UNIT in SOD CHLORIDE 0.9% 99 ML IV SCH ×2 (05:05→11:04)
[2018-09-17] MEDS: ONDANSETRON 4 MG INJ IV PRN ×2 (05:13→17:41)
[2018-09-17] MEDS ORDERED: INSULIN GLARGINE [LANTus] (100 UNITS/ML) SYG SC SCH (08:00)
--- NOTE | 2018-09-17 08:08 | CONS ---
Assessment/Plan Assessment/Plan Assessment/Plan (Daily) Acute pancreatitis Upper lipidemia Hypertriglyceridemia Acute abdominal pain secondary to the above Fluid and electrolyte abnormalities We will begin patient on 2 mg IV Dilaudid every 3 as needed pain Also start him off and methadone liquid sublingual 2 mg every 4 as needed pain. If this does not control his discomfort patient may need to have continuous IV Dilaudid as well as IV push. Will follow closely. Consultation Date/Type/Reason Admit Date/Time Sep 15, 2018 at 14:37 Date/Time of Note DATE: 09/17/18 TIME: 08:06 Hx of Present Illness 48-year-old gentleman who has a history of hypertriglyceridemia with history of valve excessive alcohol abuse obesity and diabetes. Presents to the intensive care unit with once again new onset acute abdominal discomfort. Patient was admitted to the intensive care unit secondary to acute pancreatitis with a lipase of 871. Past Medical History Home Meds Active Scripts Ondansetron Hcl* (Zofran*) 8 Mg Tablet, 8 MG PO Q6H PRN for NAUSEA AND OR VOMITING, #20 TAB Prov:OSBALDO CEDENO MD 07/16/18 Omeprazole* (Omeprazole*) 40 Mg Capsule., 40 MG PO DAILY, #14 CAP Prov:OSBALDO CEDENO MD 07/16/18 Ranitidine Hcl* (Zantac*) 150 Mg Tablet, 150 MG PO BID PRN for EPIGASTRIC PAIN, #30 TAB Prov:CHATO ODOM 06/15/18 Sucralfate* (Carafate*) 1 Gm Tab, 1 GM PO QID, #30 TAB Prov:CHATO ODOM 06/15/18 Medications Current Medications IV Flush (NS 3 ml) 3 ml PER PROTOCOL IV ; Start 09/15/18 at 16:30 Ondansetron HCl (Zofran Inj) 4 mg Q6H PRN IV NAUSEA/VOMITING Last administered on 09/17/18at 05:13; Admin Dose 4 MG; Start 09/15/18 at 16:30 Acetaminophen (Tylenol Tab) 650 mg Q6H PRN PO .PAIN 1-3 OR TEMP; Start 09/15/18 at 16:30 Acetaminophen (Tylenol Supp) 650 mg Q6H PRN IL .PAIN 1-3 OR TEMP Last administered on 09/15/18at 20:06; Admin Dose 650 MG; Start 09/15/18 at 16:30 Famotidine (Pepcid Iv) 20 mg Q12 IV Last administered on 09/16/18at 22:14; Admin Dose 20 MG; Start 09/15/18 at 21:00 Miscellaneous Information (* Miscellaneous Pharmacy Order) HYPOGLYCEMIA TREATMENT HYPOGLYCEM PROTOCOL PRN XX Hypoglycemia (BS < 70); Start 09/16/18 at 16:00 Hydromorphone HCl (Dilaudid) 2 mg Q3H PRN IV SEVERE PAIN LEVEL 7-10 Last administered on 09/17/18at 05:37; Admin Dose 2 MG; Start 09/16/18 at 18:00 Methadone HCl (Methadone Liq) 2 mg Q4 PO Last administered on 09/17/18at 05:13; Admin Dose 2 MG; Start 09/16/18 at 21:00 Miscellaneous Information (* Miscellaneous Pharmacy Order) HYPOGLYCEMIA TREATMENT HYPOGLYCEM PROTOCOL PRN XX Hypoglycemia (BS < 70); Start 09/16/18 at 18:00 Potassium Chloride/Sodium Chloride 1,000 ml @ 0 mls/hr Q0M IV ; Start 09/16/18 at 17:51 Potassium Chloride/Dextrose/ Sod Cl 1,000 ml @ 0 mls/hr Q0M IV ; Start 09/16/18 at 17:51 Potassium Chloride/Sodium Chloride 1,000 ml @ 0 mls/hr Q0M IV ; Start 09/16/18 at 17:51 Potassium Chloride/Dextrose/ Sod Cl 1,000 ml @ 0 mls/hr Q0M IV Last admi nistered on 09/17/18at 01:37; Admin Dose 250 MLS/HR; Start 09/16/18 at 17:51 Sodium Chloride 1,000 ml @ 0 mls/hr Q0M IV ; Start 09/16/18 at 17:51 Dextrose/Sodium Chloride 1,000 ml @ 0 mls/hr Q0M IV ; Start 09/16/18 at 17:51 Sodium Chloride 1,000 ml @ 100 mls/hr Q10H IV Last administered on 09/17/18at 02:58; Admin Dose 100 MLS/HR; Start 09/17/18 at 02:00 Diagnostic Test (Pha) (Accu-Chek) 1 ea Q1H XX Last administered on 09/17/18at 04:00; Admin Dose 1 EA; Start 09/17/18 at 03:00 Insulin Human Regular 100 unit/ Sodium Chloride 100 ml @ 0 mls/hr PER PROTOCOL IV Last administered on 09/17/18at 05:05; Admin Dose 1 MLS/HR; Start 09/17/18 at 03:00 Miscellaneous Information (* Miscellaneous Pharmacy Order) Treatment of Hypoglycemia: 1.BG 51... Per protocol XX ; Start 09/17/18 at 03:00 Dextrose (D50w Syringe) 25 ml Q15M PRN IV .DECREASED GLUCOSE; Start 09/17/18 at 03:00 Dextrose (D50w Syringe) 50 ml Q15M PRN IV .DECREASED GLUCOSE; Start 09/17/18 at 03:00 Calcium Gluconate 2 gm/Dextrose 120 ml @ 60 mls/hr ONCE ONCE IVPB ; Start 09/17/18 at 07:00; Stop 09/17/18 at 08:59 Allergies: Coded Allergies: morphine (Verified Allergy, Mild, 09/15/18) rashes, itch after administered morphine Past Surgical History Past Surgical Hx: no surgical history, other Social History Alcohol Use: other (Alcohol consumer but unknown frequency) Smoking Status: Never smoker Drug Use: none Exam/Review of Systems Exam Vitals Vital Signs Date Temp Pulse Resp B/P (MAP) Pulse Ox O2 O2 Flow FiO2 Time Delivery Rate 09/17/18 113 24 93 Room Air 05:00 09/17/18 98.2 04:00 09/16/18 2.0 12:05 Intake and Output 09/16/18 09/16/18 09/17/18 1515:00 23:00 07:00 IntakeIntake Total 1390 ml 605 ml 450 ml OutputOutput Total 115 ml 130 ml 250 ml BalanceBalance 1275 ml 475 ml 200 ml Results Result Diagram: 09/17/18 0418 09/17/18 0418 Results 24hrs Laboratory Tests Test 09/16/18 09:12 09/16/18 09:20 09/16/18 10:38 09/16/18 12:06 Bedside Glucose 300 H 278 H 236 H Sodium Level 134 L Potassium Level 7.5 *H Chloride Level 109 Carbon Dioxide 13 L Level Anion Gap 12 Blood Urea 21 H Nitrogen Creatinine 2.84 H Est Glomerular 24 L Filtrat Rate mL/min Glucose Level 295 H Calcium Level 4.8 *L Phosphorus Level 1.7 L Magnesium Level 1.3 L Total Bilirubin 1.0 Direct Bilirubin 0.00 Indirect 1.0 Bilirubin Aspartate Amino 54 H Transf (AST/SGOT) Alanine 20 Aminotransferase (ALT/SGPT) Alkaline 38 L Phosphatase Total Protein 6.3 Albumin 3.4 Globulin 2.90 Albumin/Globulin 1.17 Ratio Triglycerides > 1575 H Level Cholesterol Level 307 H LDL Cholesterol, Calculated HDL Cholesterol 19 L Cholesterol/HDL 16.1 Ratio Thyroid 5.430 H Stimulating Hormone (TSH) Free Thyroxine 1.89 Index Thyroxine (T4) 5.3 L Triiodothyronine 35.7 (T3) Uptake Test 09/16/18 12:15 09/16/18 14:24 09/16/18 16:51 09/16/18 17:24 Urine Color VICENTE Urine Clarity CLOUDY A Urine pH 5.0 Urine Specific 1.021 [place]bell Urine Ketones NEGATIVE Urine Nitrite NEGATIVE Urine Bilirubin NEGATIVE Urine NEGATIVE Urobilinogen Urine Leukocyte NEGATIVE Esterase Urine Microscopic 1 RBC Urine Microscopic 8 H WBC Urine Hyaline FEW A Casts Urine Granular FEW A Casts Urine Mucus FEW A Urine Hemoglobin 1+ H Urine Random 252.13 Creatinine Urine Random 28 L Sodium Urine Glucose 1+ H Urine Total 67.0 H Protein Sodium Level 132 L 135 Potassium Level 6.6 *H 5.9 H Chloride Level 108 106 Carbon Dioxide 13 L 18 L Level Anion Gap 11 11 Blood Urea 26 H 30 H Nitrogen Creatinine 3.34 H 3.31 H Est Glomerular 20 L 20 L Filtrat Rate mL/min Glucose Level 232 H 208 Calcium Level 5.1 *L 4.9 *L Magnesium Level 1.3 L Blood Gas Blood arterial Specimen Source Arterial Blood 09/16/2018 5:35:1 Date Drawn 1 PM Arterial Blood pH 7.299 *L (Temp corrected) Arterial Blood 30.2 L pCO2 (Temp correct) Arterial Blood 63.1 L pO2 (Temp corrected) Arterial Blood 14.5 L HCO3 Arterial Blood -10.4 L Base Excess Arterial Blood 92.4 L Oxygen Saturation Jarred Test ACCEPTAB Arterial Blood Right Radial Gas Puncture Site Arterial 1.0 Blood Carboxyhemo globin Arterial Blood 0.2 Methemoglobin Blood Gas A-a O2 50.5 H Differential Oxyhemoglobin 91.3 L Percent Blood Gas 37.0 Temperature Blood Gas ROOM AIR Modality FiO2 21.0 Blood Gas R PIZARRO RN Critical Value Read Back Blood Gas DT Notified Whom Blood Gas 09/16/2018 5:52:2 Notified Time 0 PM Lactic Acid Level 3.9 *H Acetone Level NEGATIVE (Chemistry) Test 09/16/18 17:39 09/16/18 20:34 09/16/18 20:35 09/16/18 21:55 Bedside Glucose 198 120 126 Sodium Level 133 L Potassium Level 5.3 H Chloride Level 108 Carbon Dioxide 14 L Level Anion Gap 11 Blood Urea 29 H Nitrogen Creatinine 3.53 H Est Glomerular 19 L Filtrat Rate mL/min Glucose Level 112 # Calcium Level 4.6 *L Ionized Calcium 0.7 L (Measured) Total Bilirubin 0.8 Direct Bilirubin 0.00 Indirect 0.8 Bilirubin Aspartate Amino 51 H Transf (AST/SGOT) Alanine 12 L Aminotransferase (ALT/SGPT) Alkaline 33 L Phosphatase Total Protein 6.5 Albumin 3.3 Globulin 3.20 Albumin/Globulin 1.03 Ratio Test 09/16/18 23:18 09/16/18 23:45 09/17/18 01:08 09/17/18 02:09 Bedside Glucose 141 175 150 White Blood Count 5.8 # Red Blood Count 4.17 #L Hemoglobin 11.9 #L Hematocrit 34.5 #L Mean Corpuscular 82.7 Volume Mean Corpuscular 28.5 L Hemoglobin Mean Corpuscular 34.5 Hemoglobin Concen t Red Cell 13.2 Distribution Width Platelet Count 162 # Mean Platelet 9.4 Volume Immature 0.300 Granulocytes % Neutrophils % Segmented 39 Neutrophils % (Manual) Band Neutrophils 31 H % (Manual) Lymphocytes % Lymphocytes % 27 (Manual) Monocytes % Monocytes % 1 (Manual) Eosinophils % Eosinophils % 1 (Manual) Basophils % Basophils % 1 (Manual) Nucleated Red 0.0 Blood Cells % Immature 0.020 Granulocytes # Neutrophils # Neutrophils # 2.4 (Manual) Band Neutrophils 1.7 H # Lymphocytes 1.5 (Manual) Lymphocytes # Monocytes # Monocytes # 0.0 L (Manual) Eosinophils # Basophils # Basophils # 0.0 (Manual) Nucleated Red Blood Cells # Platelet Estimate NORMAL Polychromasia 2+ Poikilocytosis 1+ Anisocytosis 1+ Microcytosis 1+ Sodium Level 129 L Potassium Level 4.5 Chloride Level 106 Carbon Dioxide 16 L Level Anion Gap 7 Blood Urea 31 H Nitrogen Creatinine 3.36 H Est Glomerular 20 L Filtrat Rate mL/min Glucose Level 158 Calcium Level 4.5 *L Phosphorus Level 3.1 Magnesium Level 1.4 L Total Bilirubin 0.9 Direct Bilirubin 0.00 Indirect 0.9 Bilirubin Acetone Level NEGATIVE (Chemistry) Aspartate Amino 48 H Transf (AST/SGOT) Alanine 18 Aminotransferase (ALT/SGPT) Alkaline 32 L Phosphatase Total Protein 6.0 L Albumin 3.0 L Globulin 3.00 Albumin/Globulin 1.00 Ratio Test 09/17/18 03:01 09/17/18 04:18 09/17/18 05:02 09/17/18 06:33 Bedside Glucose 115 87 117 White Blood Count 6.1 Red Blood Count 4.36 L Hemoglobin 12.5 L Hematocrit 36.7 L Mean Corpuscular 84.2 Volume Mean Corpuscular 28.7 L Hemoglobin Mean Corpuscular 34.1 Hemoglobin Concen t Red Cell 13.3 Distribution Width Platelet Count 193 Mean Platelet 9.8 Volume Immature 0.500 H Granulocytes % Neutrophils % 67.2 Lymphocytes % 26.3 Monocytes % 4.6 Eosinophils % 0.7 Basophils % 0.7 Nucleated Red 0.0 Blood Cells % Immature 0.030 Granulocytes # Neutrophils # 4.1 Lymphocytes # 1.6 Monocytes # 0.3 Eosinophils # 0.0 Basophils # 0.0 Nucleated Red 0.0 Blood Cells # Sodium Level 134 L Potassium Level 4.8 Chloride Level 105 Carbon Dioxide 18 L Level Anion Gap 11 Blood Urea 33 H Nitrogen Creatinine 3.59 H Est Glomerular 18 L Filtrat Rate mL/min Glucose Level 81 # Lactic Acid Level 2.0 Calcium Level 4.6 *L Phosphorus Level 3.3 Magnesium Level 1.4 L Total Bilirubin 1.1 Direct Bilirubin 0.00 Indirect 1.1 Bilirubin Acetone Level NEGATIVE (Chemistry) Aspartate Amino 59 H Transf (AST/SGOT) Alanine 12 L Aminotransferase (ALT/SGPT) Alkaline 31 L Phosphatase Total Protein 6.3 Albumin 3.2 L Globulin 3.10 Albumin/Globulin 1.03 Ratio Lipase 3693 H Medications Medication Current Medications IV Flush (NS 3 ml) 3 ml PER PROTOCOL IV ; Start 09/15/18 at 16:30 Ondansetron HCl (Zofran Inj) 4 mg Q6H PRN IV NAUSEA/VOMITING Last administered on 09/17/18at 05:13; Admin Dose 4 MG; Start 09/15/18 at 16:30 Acetaminophen (Tylenol Tab) 650 mg Q6H PRN PO .PAIN 1-3 OR TEMP; Start 09/15/18 at 16:30 Acetaminophen (Tylenol Supp) 650 mg Q6H PRN IL .PAIN 1-3 OR TEMP Last administered on 09/15/18at 20:06; Admin Dose 650 MG; Start 09/15/18 at 16:30 Famotidine (Pepcid Iv) 20 mg Q12 IV Last administered on 09/16/18at 22:14; Admin Dose 20 MG; Start 09/15/18 at 21:00 Miscellaneous Information (* Miscellaneous Pharmacy Order) HYPOGLYCEMIA TREATMENT HYPOGLYCEM PROTOCOL PRN XX Hypoglycemia (BS < 70); Start 09/16/18 at 16:00 Hydromorphone HCl (Dilaudid) 2 mg Q3H PRN IV SEVERE PAIN LEVEL 7-10 Last administered on 09/17/18at 05:37; Admin Dose 2 MG; Start 09/16/18 at 18:00 Methadone HCl (Methadone Liq) 2 mg Q4 PO Last administered on 09/17/18at 05:13; Admin Dose 2 MG; Start 09/16/18 at 21:00 Miscellaneous Information (* Miscellaneous Pharmacy Order) HYPOGLYCEMIA TREATMENT HYPOGLYCEM PROTOCOL PRN XX Hypoglycemia (BS < 70); Start 09/16/18 at 18:00 Potassium Chloride/Sodium Chloride 1,000 ml @ 0 mls/hr Q0M IV ; Start 09/16/18 at 17:51 Potassium Chloride/Dextrose/ Sod Cl 1,000 ml @ 0 mls/hr Q0M IV ; Start 09/16/18 at 17:51 Potassium Chloride/Sodium Chloride 1,000 ml @ 0 mls/hr Q0M IV ; Start 09/16/18 at 17:51 Potassium Chloride/Dextrose/ Sod Cl 1,000 ml @ 0 mls/hr Q0M IV Last administered on 09/17/18at 01:37; Admin Dose 250 MLS/HR; Start 09/16/18 at 17:51 Sodium Chloride 1,000 ml @ 0 mls/hr Q0M IV ; Start 09/16/18 at 17:51 Dextrose/Sodium Chloride 1,000 ml @ 0 mls/hr Q0M IV ; Start 09/16/18 at 17:51 Sodium Chloride 1,000 ml @ 100 mls/hr Q10H IV Last administered on 09/17/18at 02:58; Admin Dose 100 MLS/HR; Start 09/17/18 at 02:00 Diagnostic Test (Pha) (Accu-Chek) 1 ea Q1H XX Last administered on 09/17/18at 04:00; Admin Dose 1 EA; Start 09/17/18 at 03:00 Insulin Human Regular 100 unit/ Sodium Chloride 100 ml @ 0 mls/hr PER PROTOCOL IV Last administered on 09/17/18at 05:05; Admin Dose 1 MLS/HR; Start 09/17/18 at 03:00 Miscellaneous Information (* Miscellaneous Pharmacy Order) Treatment of Hypoglycemia: 1.BG 51... Per protocol XX ; Start 09/17/18 at 03:00 Dextrose (D50w Syringe) 25 ml Q15M PRN IV .DECREASED GLUCOSE; Start 09/17/18 at 03:00 Dextrose (D50w Syringe) 50 ml Q15M PRN IV .DECREASED GLUCOSE; Start 09/17/18 at 03:00 Calcium Gluconate 2 gm/Dextrose 120 ml @ 60 mls/hr ONCE ONCE IVPB ; Start 09/17/18 at 07:00; Stop 09/17/18 at 08:59 RASHID EASON Sep 17, 2018 08:08
[2018-09-17] MEDS: FAMOTIDINE 20 MG INJ IV SCH ×2 (08:44→21:24)
--- NOTE | 2018-09-17 08:54 | CONS ---
Consult Date/Type/Reason Admit Date/Time Sep 15, 2018 at 14:37 Initial Consult Date Date/Time of Note DATE: 09/17/18 TIME: 08:43 Subjective 48-year-old male with a past medical history of hepatitis, history of dyslipidemia, history of triglyceridemia, history of diabetes, history of ETOH abuse who reports to an outside hospital for abdominal pain with diagnosis of pancreatitis. patient was placed on IV fluids. A CT scan of the abdomen and pelvis was obtained, which showed evidence of severe acute pancreatitis and marked hepatic steatosis. The patient after 24 hours noted to have a significan t tachycardia and acute kidney injury and was subsequently transferred to intensive care unit. The patient's prior baseline creatinine was 0.8 mg/dL. On admission, patient had initial creatinine of 2.84 mg/dL. The patient had hyperkalemia with a potassium level of 7.5 mEq per liter. The patient after being brought to the intensive care unit was started on aggressive IV hydration.There have been no reports of any hemoptysis, hematemesis or hematochezia. PAST MEDICAL HISTORY: As stated above, history of dyslipidemia, history of triglyceridemia, history of diabetes, history of pancreatitis and history of ETOH use. PHYSICAL EXAMINATION: HEENT: Head is normocephalic. NECK: Supple. HEART: Regular rate. LUNGS: Show diminished breath sounds at the base. ABDOMEN: Soft, positive tenderness to palpation. EXTREMITIES: Negative for clubbing, cyanosis, no edema. DERMATOLOGIC: No rashes. MUSCULOSKELETAL: No joint effusions. NEUROLOGIC: No focal deficits. Objective Vitals Vital Signs Date Temp Pulse Resp B/P (MAP) Pulse Ox O2 O2 Flow FiO2 Time Delivery Rate 09/17/18 114 21 124/86 93 Room Air 07:00 (99) 09/17/18 98.2 04:00 09/16/18 2.0 12:05 Intake and Output 09/16/18 09/16/18 09/17/18 1515:00 23:00 07:00 IntakeIntake Total 1390 ml 605 ml 652 ml OutputOutput Total 115 ml 130 ml 250 ml BalanceBalance 1275 ml 475 ml 402 ml Results/Medications Result Diagram: 09/17/18 0418 09/17/18 0418 Results 24 hrs Laboratory Tests Test 09/16/18 09:12 09/16/18 09:20 09/16/18 10:38 09/16/18 12:06 Bedside Glucose 300 H 278 H 236 H Sodium Level 134 L Potassium Level 7.5 *H Chloride Level 109 Carbon Dioxide 13 L Level Anion Gap 12 Blood Urea 21 H Nitrogen Creatinine 2.84 H Est Glomerular 24 L Filtrat Rate mL/min Glucose Level 295 H Calcium Level 4.8 *L Phosphorus Level 1.7 L Magnesium Level 1.3 L Total Bilirubin 1.0 Direct Bilirubin 0.00 Indirect 1.0 Bilirubin Aspartate Amino 54 H Transf (AST/SGOT) Alanine 20 Aminotransferase (ALT/SGPT) Alkaline 38 L Phosphatase Total Protein 6.3 Albumin 3.4 Globulin 2.90 Albumin/Globulin 1.17 Ratio Triglycerides > 1575 H Level Cholesterol Level 307 H LDL Cholesterol, Calculated HDL Cholesterol 19 L Cholesterol/HDL 16.1 Ratio Thyroid 5.430 H Stimulating Hormone (TSH) Free Thyroxine 1.89 Index Thyroxine (T4) 5.3 L Triiodothyronine 35.7 (T3) Uptake Test 09/16/18 12:15 09/16/18 14:24 09/16/18 16:51 09/16/18 17:24 Urine Color VICENTE Urine Clarity CLOUDY A Urine pH 5.0 Urine Specific 1.021 [place] Urine Ketones NEGATIVE Urine Nitrite NEGATIVE Urine Bilirubin NEGATIVE Urine NEGATIVE Urobilinogen Urine Leukocyte NEGATIVE Esterase Urine Microscopic 1 RBC Urine Microscopic 8 H WBC Urine Hyaline FEW A Casts Urine Granular FEW A Casts Urine Mucus FEW A Urine Hemoglobin 1+ H Urine Random 252.13 Creatinine Urine Random 28 L Sodium Urine Glucose 1+ H Urine Total 67.0 H Protein Sodium Level 132 L 135 Potassium Level 6.6 *H 5.9 H Chloride Level 108 106 Carbon Dioxide 13 L 18 L Level Anion Gap 11 11 Blood Urea 26 H 30 H Nitrogen Creatinine 3.34 H 3.31 H Est Glomerular 20 L 20 L Filtrat Rate mL/min Glucose Level 232 H 208 Calcium Level 5.1 *L 4.9 *L Magnesium Level 1.3 L Blood Gas Blood arterial Specimen Source Arterial Blood 09/16/2018 5:35:1 Date Drawn 1 PM Arterial Blood pH 7.299 *L (Temp corrected) Arterial Blood 30.2 L pCO2 (Temp correct) Arterial Blood 63.1 L pO2 (Temp corrected) Arterial Blood 14.5 L HCO3 Arterial Blood -10.4 L Base Excess Arterial Blood 92.4 L Oxygen Saturation Jarred Test ACCEPTAB Arterial Blood Right Radial Gas Puncture Site Arterial 1.0 Blood Carboxyhemo globin Arterial Blood 0.2 Methemoglobin Blood Gas A-a O2 50.5 H Differential Oxyhemoglobin 91.3 L Percent Blood Gas 37.0 Temperature Blood Gas ROOM AIR Modality FiO2 21.0 Blood Gas R PIZARRO RN Critical Value Read Back Blood Gas DT Notified Whom Blood Gas 09/16/2018 5:52:2 Notified Time 0 PM Lactic Acid Level 3.9 *H Acetone Level NEGATIVE (Chemistry) Test 09/16/18 17:39 09/16/18 20:34 09/16/18 20:35 09/16/18 21:55 Bedside Glucose 198 120 126 Sodium Level 133 L Potassium Level 5.3 H Chloride Level 108 Carbon Dioxide 14 L Level Anion Gap 11 Blood Urea 29 H Nitrogen Creatinine 3.53 H Est Glomerular 19 L Filtrat Rate mL/min Glucose Level 112 # Calcium Level 4.6 *L Ionized Calcium 0.7 L (Measured) Total Bilirubin 0.8 Direct Bilirubin 0.00 Indirect 0.8 Bilirubin Aspartate Amino 51 H Transf (AST/SGOT) Alanine 12 L Aminotransferase (ALT/SGPT) Alkaline 33 L Phosphatase Total Protein 6.5 Albumin 3.3 Globulin 3.20 Albumin/Globulin 1.03 Ratio Test 09/16/18 23:18 09/16/18 23:45 09/17/18 01:08 09/17/18 02:09 Bedside Glucose 141 175 150 White Blood Count 5.8 # Red Blood Count 4.17 #L Hemoglobin 11.9 #L Hematocrit 34.5 #L Mean Corpuscular 82.7 Volume Mean Corpuscular 28.5 L Hemoglobin Mean Corpuscular 34.5 Hemoglobin Concen t Red Cell 13.2 Distribution Width Platelet Count 162 # Mean Platelet 9.4 Volume Immature 0.300 Granulocytes % Neutrophils % Segmented 39 Neutrophils % (Manual) Band Neutrophils 31 H % (Manual) Lymphocytes % Lymphocytes % 27 (Manual) Monocytes % Monocytes % 1 (Manual) Eosinophils % Eosinophils % 1 (Manual) Basophils % Basophils % 1 (Manual) Nucleated Red 0.0 Blood Cells % Immature 0.020 Granulocytes # Neutrophils # Neutrophils # 2.4 (Manual) Band Neutrophils 1.7 H # Lymphocytes 1.5 (Manual) Lymphocytes # Monocytes # Monocytes # 0.0 L (Manual) Eosinophils # Basophils # Basophils # 0.0 (Manual) Nucleated Red Blood Cells # Platelet Estimate NORMAL Polychromasia 2+ Poikilocytosis 1+ Anisocytosis 1+ Microcytosis 1+ Sodium Level 129 L Potassium Level 4.5 Chloride Level 106 Carbon Dioxide 16 L Level Anion Gap 7 Blood Urea 31 H Nitrogen Creatinine 3.36 H Est Glomerular 20 L Filtrat Rate mL/min Glucose Level 158 Calcium Level 4.5 *L Phosphorus Level 3.1 Magnesium Level 1.4 L Total Bilirubin 0.9 Direct Bilirubin 0.00 Indirect 0.9 Bilirubin Acetone Level NEGATIVE (Chemistry) Aspartate Amino 48 H Transf (AST/SGOT) Alanine 18 Aminotransferase (ALT/SGPT) Alkaline 32 L Phosphatase Total Protein 6.0 L Albumin 3.0 L Globulin 3.00 Albumin/Globulin 1.00 Ratio Test 09/17/18 03:01 09/17/18 04:18 09/17/18 05:02 09/17/18 06:33 Bedside Glucose 115 87 117 White Blood Count 6.1 Red Blood Count 4.36 L Hemoglobin 12.5 L Hematocrit 36.7 L Mean Corpuscular 84.2 Volume Mean Corpuscular 28.7 L Hemoglobin Mean Corpuscular 34.1 Hemoglobin Concen t Red Cell 13.3 Distribution Width Platelet Count 193 Mean Platelet 9.8 Volume Immature 0.500 H Granulocytes % Neutrophils % 67.2 Segmented 50 Neutrophils % (Manual) Band Neutrophils 19 H % (Manual) Lymphocytes % 26.3 Lymphocytes % 28 (Manual) Monocytes % 4.6 Monocytes % 2 (Manual) Eosinophils % 0.7 Basophils % 0.7 Basophils % 1 (Manual) Nucleated Red 0.0 Blood Cells % Immature 0.030 Granulocytes # Neutrophils # 4.1 Neutrophils # 3.1 (Manual) Band Neutrophils 1.1 H # Lymphocytes 1.7 (Manual) Lymphocytes # 1.6 Monocytes # 0.3 Monocytes # 0.1 L (Manual) Eosinophils # 0.0 Basophils # 0.0 Basophils # 0.0 (Manual) Nucleated Red 0.0 Blood Cells # Platelet Estimate NORMAL Giant Platelets 1 H Poikilocytosis 1+ Anisocytosis 1+ Microcytosis 1+ Macrocytosis 1+ Sodium Level 134 L Potassium Level 4.8 Chloride Level 105 Carbon Dioxide 18 L Level Anion Gap 11 Blood Urea 33 H Nitrogen Creatinine 3.59 H Est Glomerular 18 L Filtrat Rate mL/min Glucose Level 81 # Lactic Acid Level 2.0 Calcium Level 4.6 *L Phosphorus Level 3.3 Magnesium Level 1.4 L Total Bilirubin 1.1 Direct Bilirubin 0.00 Indirect 1.1 Bilirubin Acetone Level NEGATIVE (Chemistry) Aspartate Amino 59 H Transf (AST/SGOT) Alanine 12 L Aminotransferase (ALT/SGPT) Alkaline 31 L Phosphatase Total Protein 6.3 Albumin 3.2 L Globulin 3.10 Albumin/Globulin 1.03 Ratio Lipase 3693 H Test 09/17/18 08:01 Bedside Glucose 136 Home Meds Active Scripts Ondansetron Hcl* (Zofran*) 8 Mg Tablet, 8 MG PO Q6H PRN for NAUSEA AND OR VOMITING, #20 TAB Prov:OSBALDO CEDENO MD 07/16/18 Omeprazole* (Omeprazole*) 40 Mg Capsule.dr, 40 MG PO DAILY, #14 CAP Prov:OSBALDO CEDENO MD 07/16/18 Ranitidine Hcl* (Zantac*) 150 Mg Tablet, 150 MG PO BID PRN for EPIGASTRIC PAIN, #30 TAB Prov:CHATO ODOM 06/15/18 Sucralfate* (Carafate*) 1 Gm Tab, 1 GM PO QID, #30 TAB Prov:CHATO ODOM 06/15/18 Medications Current Medications IV Flush (NS 3 ml) 3 ml PER PROTOCOL IV ; Start 09/15/18 at 16:30 Ondansetron HCl (Zofran Inj) 4 mg Q6H PRN IV NAUSEA/VOMITING Last administered on 09/17/18at 05:13; Admin Dose 4 MG; Start 09/15/18 at 16:30 Acetaminophen (Tylenol Tab) 650 mg Q6H PRN PO .PAIN 1-3 OR TEMP; Start 09/15/18 at 16:30 Acetaminophen (Tylenol Supp) 650 mg Q6H PRN ME .PAIN 1-3 OR TEMP Last administered on 09/15/18at 20:06; Admin Dose 650 MG; Start 09/15/18 at 16:30 Famotidine (Pepcid Iv) 20 mg Q12 IV Last administered on 09/16/18at 22:14; Admin Dose 20 MG; Start 09/15/18 at 21:00 Miscellaneous Information (* Miscellaneous Pharmacy Order) HYPOGLYCEMIA T REATMENT HYPOGLYCEM PROTOCOL PRN XX Hypoglycemia (BS < 70); Start 09/16/18 at 16:00 Hydromorphone HCl (Dilaudid) 2 mg Q3H PRN IV SEVERE PAIN LEVEL 7-10 Last administered on 09/17/18at 05:37; Admin Dose 2 MG; Start 09/16/18 at 18:00 Methadone HCl (Methadone Liq) 2 mg Q4 PO Last administered on 09/17/18at 05:13; Admin Dose 2 MG; Start 09/16/18 at 21:00 Miscellaneous Information (* Miscellaneous Pharmacy Order) HYPOGLYCEMIA TREATMENT HYPOGLYCEM PROTOCOL PRN XX Hypoglycemia (BS < 70); Start 09/16/18 at 18:00 Potassium Chloride/Sodium Chloride 1,000 ml @ 0 mls/hr Q0M IV ; Start 09/16/18 at 17:51 Potassium Chloride/Dextrose/ Sod Cl 1,000 ml @ 0 mls/hr Q0M IV ; Start 09/16/18 at 17:51 Potassium Chloride/Sodium Chloride 1,000 ml @ 0 mls/hr Q0M IV ; Start 09/16/18 at 17:51 Potassium Chloride/Dextrose/ Sod Cl 1,000 ml @ 0 mls/hr Q0M IV Last administered on 09/17/18at 01:37; Admin Dose 250 MLS/HR; Start 09/16/18 at 17:51 Sodium Chloride 1,000 ml @ 0 mls/hr Q0M IV ; Start 09/16/18 at 17:51 Dextrose/Sodium Chloride 1,000 ml @ 0 mls/hr Q0M IV ; Start 09/16/18 at 17:51 Sodium Chloride 1,000 ml @ 100 mls/hr Q10H IV Last administered on 09/17/18at 02:58; Admin Dose 100 MLS/HR; Start 09/17/18 at 02:00 Diagnostic Test (Pha) (Accu-Chek) 1 ea Q1H XX Last administered on 09/17/18at 07:00; Admin Dose 1 EA; Start 09/17/18 at 03:00 Insulin Human Regular 100 unit/ Sodium Chloride 100 ml @ 0 mls/hr PER PROTOCOL IV Last administered on 09/17/18at 05:05; Admin Dose 1 MLS/HR; Start 09/17/18 at 03:00 Miscellaneous Information (* Miscellaneous Pharmacy Order) Treatment of Hypoglycemia: 1.BG 51... Per protocol XX ; Start 09/17/18 at 03:00 Dextrose (D50w Syringe) 25 ml Q15M PRN IV .DECREASED GLUCOSE; Start 09/17/18 at 03:00 Dextrose (D50w Syringe) 50 ml Q15M PRN IV .DECREASED GLUCOSE; Start 09/17/18 at 03:00 Calcium Gluconate 2 gm/Dextrose 120 ml @ 60 mls/hr ONCE ONCE IVPB ; Start 09/17/18 at 07:00; Stop 09/17/18 at 08:59 Assessment/Plan Assessment/Plan (Daily) 1. Oliguric acute kidney injury with previously normal baseline creatinine. Etiology of acute kidney injury secondary to acute tubular necrosis due to severe pancreatitis. The patient's urinalysis shows evidence of granular casts consistent with tubular injury. The patient also noted to have FENa of less than 1% and nonglomerular proteinuria. - Etiology is consistent with decreased effective arterial volume in the setting of acute pancreatitis. - continue patient on aggressive IV hydration. - all meds dosed ok. - trend creatinine. We will continue to monitor renal function and hyperkalemia closely. If renal function should progressively decline, we would consider possible renal placement therapy. 2. Severe hyperkalemia. Etiology secondary to acute kidney injury, hype rglycemia, metabolic acidosis. The patient's potassium levels have improved with medical management, Kayexalate, IV insulin. We will continue to monitor and trend potassium levels closely. Continue to also correct underlying hyperglycemia, which will help shift potassium levels intracellularly. We will monitor closely. 3. Metabolic acidosis, etiology secondary to acute kidney injury. Continue to monitor. No need for bicarbonate therapy at this time. 4. Hyponatremia secondary to acute kidney injury. Continue to monitor. 5. Mineral bone disorder. The patient is hypocalcemic, etiology secondary to acute pancreatitis. Plan is to check an ionized calcium. We will replete with calcium gluconate and monitor closely. 6. Lactic acidosis secondary to acute pancreatitis. Continue IV fluids. Continue to trend lactic acid levels. 6. Acute severe pancreatitis. Etiology may be secondary to hypertriglyceridemia, questionable alcohol use. Continue aggressive IV hydration. Continue n.p.o. Continue pain control. We will monitor closely. 7. Hypertriglyceridemia. Continue to monitor. Continue medical management. 8. Diabetes. Glucose levels remain elevated, consider insulin drip. 9. History of ETOH abuse. Monitor for any signs of acute withdrawals. 10. hypocalcemia- possible related to saponification from pancreatitis. it is associated with precipitation of calcium soaps in the abdominal cavity. The actual mechanism remains unclear. bolus doses recommended. GUSTAVO BAEZ MD Sep 17, 2018 08:54
--- NOTE | 2018-09-17 12:13 | PN ---
Date/Time of Note Date/Time of Note DATE: 09/17/18 TIME: 12:03 Assessment/Plan VTE Pro[place]axis [place] [facility] [place]: 1 [place] [facility] [place] SCD contraindicated: other Pharmacological prophylaxis: NA/contraindicated Pharm contraindication: low risk/ambulating Lines/Catheters IV Catheter Type (from [facility]): Peripheral IV Urinary Cath still in place: Yes Reason Cath still needed: other (indicate) (monitor I&O) Assessment/Plan Hospital Course 1. Acute severe pancreatitis. -suspect from hypertriglyceridemia - continue aggressive IVF - [place] Criteria after 48 hrs is roughly 6 indicating 40% mortality or greater 2. Acute kidney injury suspect secondary to ATN from severe pancreatitis - with metabolic acidosis - remedial masseur consulted - monitor renal panel - continue aggressive hydration - correct electrolytes as needed 3. Hyperkalemia - improved. - kayexalate prn 4. Hypomagnesemia - monitor and replete prn - from pancreatitis 5. Hypophosphatemia - was repleted - monitor and replete prn 6. Hypomagnesemia - will replete with monitoring of renal function - monitor level 7. Hypertriglyceridemia. -highly elevated - patient reports noncompliance with his home medication - compliance advised. 8. Diabetes mellitus type II. - on insulin drip in the icu - will get fish tender consultation 9. suspect hx Alcohol abuse. -had negative ethanol level on admission - will monitor 10. Medical non-compliance - patient advised on medical compliance Disposition and plan. monitor in ICU. correct electrolytes as needed. patient counseled on medical compliance. f/u labs. endocrine consult. transition off insulin drip as tolerates Discussed POC with Dr. Torres Critical Care time: 40 minutes Result Diagram: 09/17/18 0418 09/17/18 0418 Results 24hrs Laboratory Tests Test 09/16/18 12:06 09/16/18 12:15 09/16/18 14:24 09/16/18 16:51 Bedside Glucose 236 H Urine Color VICENTE Urine Clarity CLOUDY A Urine pH 5.0 Urine Specific 1.021 [place] Urine Ketones NEGATIVE Urine Nitrite NEGATIVE Urine Bilirubin NEGATIVE Urine NEGATIVE Urobilinogen Urine Leukocyte NEGATIVE Esterase Urine Microscopic 1 RBC Urine Microscopic 8 H WBC Urine Hyaline FEW A Casts Urine Granular FEW A Casts Urine Mucus FEW A Urine Hemoglobin 1+ H Urine Random 252.13 Creatinine Urine Random 28 L Sodium Urine Glucose 1+ H Urine Total 67.0 H Protein Sodium Level 132 L Potassium Level 6.6 *H Chloride Level 108 Carbon Dioxide 13 L Level Anion Gap 11 Blood Urea 26 H Nitrogen Creatinine 3.34 H Est Glomerular 20 L Filtrat Rate mL/min Glucose Level 232 H Calcium Level 5.1 *L Magnesium Level 1.3 L Blood Gas Blood arterial Specimen Source Arterial Blood 09/16/2018 5:35:1 Date Drawn 1 PM Arterial Blood pH 7.299 *L (Temp corrected) Arterial Blood 30.2 L pCO2 (Temp correct) Arterial Blood 63.1 L pO2 (Temp corrected) Arterial Blood 14.5 L HCO3 Arterial Blood -10.4 L Base Excess Arterial Blood 92.4 L Oxygen Saturation Jarred Test ACCEPTAB Arterial Blood Right Radial Gas Puncture Site Arterial 1.0 Blood Carboxyhemo globin Arterial Blood 0.2 Methemoglobin Blood Gas A-a O2 50.5 H Differential Oxyhemoglobin 91.3 L Percent Blood Gas 37.0 Temperature Blood Gas ROOM AIR Modality FiO2 21.0 Blood Gas R PIZARRO RN Critical Value Read Back Blood Gas DT Notified Whom Blood Gas 09/16/2018 5:52:2 Notified Time 0 PM Test 09/16/18 17:24 09/16/18 17:39 09/16/18 20:34 09/16/18 20:35 Sodium Level 135 133 L Potassium Level 5.9 H 5.3 H Chloride Level 106 108 Carbon Dioxide 18 L 14 L Level Anion Gap 11 11 Blood Urea 30 H 29 H Nitrogen Creatinine 3.31 H 3.53 H Est Glomerular 20 L 19 L Filtrat Rate mL/min Glucose Level 208 112 # Lactic Acid Level 3.9 *H Calcium Level 4.9 *L 4.6 *L Acetone Level NEGATIVE (Chemistry) Bedside Glucose 198 120 Ionized Calcium 0.7 L (Measured) Total Bilirubin 0.8 Direct Bilirubin 0.00 Indirect 0.8 Bilirubin Aspartate Amino 51 H Transf (AST/SGOT) Alanine 12 L Aminotransferase (ALT/SGPT) Alkaline 33 L Phosphatase Total Protein 6.5 Albumin 3.3 Globulin 3.20 Albumin/Globulin 1.03 Ratio Test 09/16/18 21:55 09/16/18 23:18 09/16/18 23:45 09/17/18 01:08 Bedside Glucose 126 141 175 White Blood Count 5.8 # Red Blood Count 4.17 #L Hemoglobin 11.9 #L Hematocrit 34.5 #L Mean Corpuscular 82.7 Volume Mean Corpuscular 28.5 L Hemoglobin Mean Corpuscular 34.5 Hemoglobin Concen t Red Cell 13.2 Distribution Width Platelet Count 162 # Mean Platelet 9.4 Volume Immature 0.300 Granulocytes % Neutrophils % Segmented 39 Neutrophils % (Manual) Band Neutrophils 31 H % (Manual) Lymphocytes % Lymphocytes % 27 (Manual) Monocytes % Monocytes % 1 (Manual) Eosinophils % Eosinophils % 1 (Manual) Basophils % Basophils % 1 (Manual) Nucleated Red 0.0 Blood Cells % Immature 0.020 Granulocytes # Neutrophils # Neutrophils # 2.4 (Manual) Band Neutrophils 1.7 H # Lymphocytes 1.5 (Manual) Lymphocytes # Monocytes # Monocytes # 0.0 L (Manual) Eosinophils # Basophils # Basophils # 0.0 (Manual) Nucleated Red Blood Cells # Platelet Estimate NORMAL Polychromasia 2+ Poikilocytosis 1+ Anisocytosis 1+ Microcytosis 1+ Sodium Level 129 L Potassium Level 4.5 Chloride Level 106 Carbon Dioxide 16 L Level Anion Gap 7 Blood Urea 31 H Nitrogen Creatinine 3.36 H Est Glomerular 20 L Filtrat Rate mL/min Glucose Level 158 Calcium Level 4.5 *L Phosphorus Level 3.1 Magnesium Level 1.4 L Total Bilirubin 0.9 Direct Bilirubin 0.00 Indirect 0.9 Bilirubin Acetone Level NEGATIVE (Chemistry) Aspartate Amino 48 H Transf (AST/SGOT) Alanine 18 Aminotransferase (ALT/SGPT) Alkaline 32 L Phosphatase Total Protein 6.0 L Albumin 3.0 L Globulin 3.00 Albumin/Globulin 1.00 Ratio Test 09/17/18 02:09 09/17/18 03:01 09/17/18 04:18 09/17/18 05:02 Bedside Glucose 150 115 87 White Blood Count 6.1 Red Blood Count 4.36 L Hemoglobin 12.5 L Hematocrit 36.7 L Mean Corpuscular 84.2 Volume Mean Corpuscular 28.7 L Hemoglobin Mean Corpuscular 34.1 Hemoglobin Concen t Red Cell 13.3 Distribution Width Platelet Count 193 Mean Platelet 9.8 Volume Immature 0.500 H Granulocytes % Neutrophils % 67.2 Segmented 50 Neutrophils % (Manual) Band Neutrophils 19 H % (Manual) Lymphocytes % 26.3 Lymphocytes % 28 (Manual) Monocytes % 4.6 Monocytes % 2 (Manual) Eosinophils % 0.7 Basophils % 0.7 Basophils % 1 (Manual) Nucleated Red 0.0 Blood Cells % Immature 0.030 Granulocytes # Neutrophils # 4.1 Neutrophils # 3.1 (Manual) Band Neutrophils 1.1 H # Lymphocytes 1.7 (Manual) Lymphocytes # 1.6 Monocytes # 0.3 Monocytes # 0.1 L (Manual) Eosinophils # 0.0 Basophils # 0.0 Basophils # 0.0 (Manual) Nucleated Red 0.0 Blood Cells # Platelet Estimate NORMAL Giant Platelets 1 H Poikilocytosis 1+ Anisocytosis 1+ Microcytosis 1+ Macrocytosis 1+ Sodium Level 134 L Potassium Level 4.8 Chloride Level 105 Carbon Dioxide 18 L Level Anion Gap 11 Blood Urea 33 H Nitrogen Creatinine 3.59 H Est Glomerular 18 L Filtrat Rate mL/min Glucose Level 81 # Lactic Acid Level 2.0 Calcium Level 4.6 *L Phosphorus Level 3.3 Magnesium Level 1.4 L Total Bilirubin 1.1 Direct Bilirubin 0.00 Indirect 1.1 Bilirubin Acetone Level NEGATIVE (Chemistry) Aspartate Amino 59 H Transf (AST/SGOT) Alanine 12 L Aminotransferase (ALT/SGPT) Alkaline 31 L Phosphatase Total Protein 6.3 Albumin 3.2 L Globulin 3.10 Albumin/Globulin 1.03 Ratio Lipase 3693 H Test 09/17/18 06:33 09/17/18 08:01 09/17/18 09:05 09/17/18 10:58 Bedside Glucose 117 136 142 166 Subjective 24 Hr Interval Summary Free Text/Dictation remains on insulin drip. reports less pain on abdomen Exam/Review of Systems Exam Vitals Vital Signs Date Temp Pulse Resp B/P (MAP) Pulse Ox O2 O2 Flow FiO2 Time Delivery Rate 09/17/18 110 24 147/92 96 Nasal 2.0 11:00 (110) Cannula 09/17/18 98.5 08:00 Intake and Output 09/16/18 09/16/18 09/17/18 1515:00 23:00 07:00 IntakeIntake Total 1390 ml 605 ml 652 ml OutputOutput Total 115 ml 130 ml 250 ml BalanceBalance 1275 ml 475 ml 402 ml Exam Constitutional: alert, oriented Psych: nl mood/affect Head: normocephalic Eyes: nl conjunctiva Neck: supple, tender Respiratory: clear to auscultation Cardiovascular: regular rate and rhythm Gastrointestinal: soft, non-tender Neurological: SALES 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 II-XII intact, nl mental status, nl speech Results Results 24hrs Laboratory Tests Test 09/16/18 12:06 09/16/18 12:15 09/16/18 14:24 09/16/18 16:51 Bedside Glucose 236 H Urine Color VICENTE Urine Clarity CLOUDY A Urine pH 5.0 Urine Specific 1.021 [place] Urine Ketones NEGATIVE Urine Nitrite NEGATIVE Urine Bilirubin NEGATIVE Urine NEGATIVE Urobilinogen Urine Leukocyte NEGATIVE Esterase Urine Microscopic 1 RBC Urine Microscopic 8 H WBC Urine Hyaline FEW A Casts Urine Granular FEW A Casts Urine Mucus FEW A Urine Hemoglobin 1+ H Urine Random 252.13 Creatinine Urine Random 28 L Sodium Urine Glucose 1+ H Urine Total 67.0 H Protein Sodium Level 132 L Potassium Level 6.6 *H Chloride Level 108 Carbon Dioxide 13 L Level Anion Gap 11 Blood Urea 26 H Nitrogen Creatinine 3.34 H Est Glomerular 20 L Filtrat Rate mL/min Glucose Level 232 H Calcium Level 5.1 *L Magnesium Level 1.3 L Blood Gas Blood arterial Specimen Source Arterial Blood 09/16/2018 5:35:1 Date Drawn 1 PM Arterial Blood pH 7.299 *L (Temp corrected) Arterial Blood 30.2 L pCO2 (Temp correct) Arterial Blood 63.1 L pO2 (Temp corrected) Arterial Blood 14.5 L HCO3 Arterial Blood -10.4 L Base Excess Arterial Blood 92.4 L Oxygen Saturation Jarred Test ACCEPTAB Arterial Blood Right Radial Gas Puncture Site Arterial 1.0 Blood Carboxyhemo globin Arterial Blood 0.2 Methemoglobin Blood Gas A-a O2 50.5 H Differential Oxyhemoglobin 91.3 L Percent Blood Gas 37.0 Temperature Blood Gas ROOM AIR Modality FiO2 21.0 Blood Gas R JUAREZ RN Critical Value Read Back Blood Gas DT Notified Whom Blood Gas 09/16/2018 5:52:2 Notified Time 0 PM Test 09/16/18 17:24 09/16/18 17:39 09/16/18 20:34 09/16/18 20:35 Sodium Level 135 133 L Potassium Level 5.9 H 5.3 H Chloride Level 106 108 Carbon Dioxide 18 L 14 L Level Anion Gap 11 11 Blood Urea 30 H 29 H Nitrogen Creatinine 3.31 H 3.53 H Est Glomerular 20 L 19 L Filtrat Rate mL/min Glucose Level 208 112 # Lactic Acid Level 3.9 *H Calcium Level 4.9 *L 4.6 *L Acetone Level NEGATIVE (Chemistry) Bedside Glucose 198 120 Ionized Calcium 0.7 L (Measured) Total Bilirubin 0.8 Direct Bilirubin 0.00 Indirect 0.8 Bilirubin Aspartate Amino 51 H Transf (AST/SGOT) Alanine 12 L Aminotransferase (ALT/SGPT) Alkaline 33 L Phosphatase Total Protein 6.5 Albumin 3.3 Globulin 3.20 Albumin/Globulin 1.03 Ratio Test 09/16/18 21:55 09/16/18 23:18 09/16/18 23:45 09/17/18 01:08 Bedside Glucose 126 141 175 White Blood Count 5.8 # Red Blood Count 4.17 #L Hemoglobin 11.9 #L Hematocrit 34.5 #L Mean Corpuscular 82.7 Volume Mean Corpuscular 28.5 L Hemoglobin Mean Corpuscular 34.5 Hemoglobin Concen t Red Cell 13.2 Distribution Width Platelet Count 162 # Mean Platelet 9.4 Volume Immature 0.300 Granulocytes % Neutrophils % Segmented 39 Neutrophils % (Manual) Band Neutrophils 31 H % (Manual) Lymphocytes % Lymphocytes % 27 (Manual) Monocytes % Monocytes % 1 (Manual) Eosinophils % Eosinophils % 1 (Manual) Basophils % Basophils % 1 (Manual) Nucleated Red 0.0 Blood Cells % Immature 0.020 Granulocytes # Neutrophils # Neutrophils # 2.4 (Manual) Band Neutrophils 1.7 H # Lymphocytes 1.5 (Manual) Lymphocytes # Monocytes # Monocytes # 0.0 L (Manual) Eosinophils # Basophils # Basophils # 0.0 (Manual) Nucleated Red Blood Cells # Platelet Estimate NORMAL Polychromasia 2+ Poikilocytosis 1+ Anisocytosis 1+ Microcytosis 1+ Sodium Level 129 L Potassium Level 4.5 Chloride Level 106 Carbon Dioxide 16 L Level Anion Gap 7 Blood Urea 31 H Nitrogen Creatinine 3.36 H Est Glomerular 20 L Filtrat Rate mL/min Glucose Level 158 Calcium Level 4.5 *L Phosphorus Level 3.1 Magnesium Level 1.4 L Total Bilirubin 0.9 Direct Bilirubin 0.00 Indirect 0.9 Bilirubin Acetone Level NEGATIVE (Chemistry) Aspartate Amino 48 H Transf (AST/SGOT) Alanine 18 Aminotransferase (ALT/SGPT) Alkaline 32 L Phosphatase Total Protein 6.0 L Albumin 3.0 L Globulin 3.00 Albumin/Globulin 1.00 Ratio Test 09/17/18 02:09 09/17/18 03:01 09/17/18 04:18 09/17/18 05:02 Bedside Glucose 150 115 87 White Blood Count 6.1 Red Blood Count 4.36 L Hemoglobin 12.5 L Hematocrit 36.7 L Mean Corpuscular 84.2 Volume Mean Corpuscular 28.7 L Hemoglobin Mean Corpuscular 34.1 Hemoglobin Concen t Red Cell 13.3 Distribution Width Platelet Count 193 Mean Platelet 9.8 Volume Immature 0.500 H Granulocytes % Neutrophils % 67.2 Segmented 50 Neutrophils % (Manual) Band Neutrophils 19 H % (Manual) Lymphocytes % 26.3 Lymphocytes % 28 (Manual) Monocytes % 4.6 Monocytes % 2 (Manual) Eosinophils % 0.7 Basophils % 0.7 Basophils % 1 (Manual) Nucleated Red 0.0 Blood Cells % Immature 0.030 Granulocytes # Neutrophils # 4.1 Neutrophils # 3.1 (Manual) Band Neutrophils 1.1 H # Lymphocytes 1.7 (Manual) Lymphocytes # 1.6 Monocytes # 0.3 Monocytes # 0.1 L (Manual) Eosinophils # 0.0 Basophils # 0.0 Basophils # 0.0 (Manual) Nucleated Red 0.0 Blood Cells # Platelet Estimate NORMAL Giant Platelets 1 H Poikilocytosis 1+ Anisocytosis 1+ Microcytosis 1+ Macrocytosis 1+ Sodium Level 134 L Potassium Level 4.8 Chloride Level 105 Carbon Dioxide 18 L Level Anion Gap 11 Blood Urea 33 H Nitrogen Creatinine 3.59 H Est Glomerular 18 L Filtrat Rate mL/min Glucose Level 81 # Lactic Acid Level 2.0 Calcium Level 4.6 *L Phosphorus Level 3.3 Magnesium Level 1.4 L Total Bilirubin 1.1 Direct Bilirubin 0.00 Indirect 1.1 Bilirubin Acetone Level NEGATIVE (Chemistry) Aspartate Amino 59 H Transf (AST/SGOT) Alanine 12 L Aminotransferase (ALT/SGPT) Alkaline 31 L Phosphatase Total Protein 6.3 Albumin 3.2 L Globulin 3.10 Albumin/Globulin 1.03 Ratio Lipase 3693 H Test 09/17/18 06:33 09/17/18 08:01 09/17/18 09:05 09/17/18 10:58 Bedside Glucose 117 136 142 166 Medications Medication Current Medications IV Flush (NS 3 ml) 3 ml PER PROTOCOL IV ; Start 09/15/18 at 16:30 Ondansetron HCl (Zofran Inj) 4 mg Q6H PRN IV NAUSEA/VOMITING Last administered on 09/17/18at 05:13; Admin Dose 4 MG; Start 09/15/18 at 16:30 Acetaminophen (Tylenol Tab) 650 mg Q6H PRN PO .PAIN 1-3 OR TEMP; Start 09/15/18 at 16:30 Acetaminophen (Tylenol Supp) 650 mg Q6H PRN DE .PAIN 1-3 OR TEMP Last administered on 09/15/18at 20:06; Admin Dose 650 MG; Start 09/15/18 at 16:30 Famotidine (Pepcid Iv) 20 mg Q12 IV Last administered on 09/17/18at 08:44; Admin Dose 20 MG; Start 09/15/18 at 21:00 Miscellaneous Information (* Miscellaneous Pharmacy Order) HYPOGLYCEMIA TREATMENT HYPOGLYCEM PROTOCOL PRN XX Hypoglycemia (BS < 70); Start 09/16/18 at 16:00 Hydromorphone HCl (Dilaudid) 2 mg Q3H PRN IV SEVERE PAIN LEVEL 7-10 Last administered on 09/17/18at 08:44; Admin Dose 2 MG; Start 09/16/18 at 18:00 Methadone HCl (Methadone Liq) 2 mg Q4 PO Last administered on 09/17/18at 08:45; Admin Dose 2 MG; Start 09/16/18 at 21:00 Miscellaneous Information (* Miscellaneous Pharmacy Order) HYPOGLYCEMIA TREATMENT HYPOGLYCEM PROTOCOL PRN XX Hypoglycemia (BS < 70); Start 09/16/18 at 18:00 Potassium Chloride/Sodium Chloride 1,000 ml @ 0 mls/hr Q0M IV ; Start 09/16/18 at 17:51 Potassium Chloride/Dextrose/ Sod Cl 1,000 ml @ 0 mls/hr Q0M IV ; Start 09/16/18 at 17:51 Potassium Chloride/Sodium Chloride 1,000 ml @ 0 mls/hr Q0M IV ; Start 09/16/18 at 17:51 Potassium Chloride/Dextrose/ Sod Cl 1,000 ml @ 0 mls/hr Q0M IV Last administered on 09/17/18at 01:37; Admin Dose 250 MLS/HR; Start 09/16/18 at 17:51 Sodium Chloride 1,000 ml @ 0 mls/hr Q0M IV ; Start 09/16/18 at 17:51 Dextrose/Sodium Chloride 1,000 ml @ 0 mls/hr Q0M IV ; Start 09/16/18 at 17:51 Sodium Chloride 1,000 ml @ 100 mls/hr Q10H IV Last administered on 09/17/18at 02:58; Admin Dose 100 MLS/HR; Start 09/17/18 at 02:00 Diagnostic Test (Pha) (Accu-Chek) 1 ea Q1H XX Last administered on 09/17/18at 07:00; Admin Dose 1 EA; Start 09/17/18 at 03:00 Insulin Human Regular 100 unit/ Sodium Chloride 100 ml @ 0 mls/hr PER PROTOCOL IV Last administered on 09/17/18at 11:04; Admin Dose 4 MLS/HR; Start 09/17/18 at 03:00 Miscellaneous Information (* Miscellaneous Pharmacy Order) Treatment of Hypoglycemia: 1.BG 51... Per protocol XX ; Start 09/17/18 at 03:00 Dextrose (D50w Syringe) 25 ml Q15M PRN IV .DECREASED GLUCOSE; Start 09/17/18 at 03:00 Dextrose (D50w Syringe) 50 ml Q15M PRN IV .DECREASED GLUCOSE; Start 09/17/18 at 03:00 JADYN DOWLING NP Sep 17, 2018 12:13
[2018-09-17] MEDS ORDERED: GLUCOSE GEL 15 GRAM TUBE PO PRN ×2 (13:00)
[2018-09-17] MEDS ORDERED: GLUCAGON 1 MG INJ IM PRN (13:00)
[2018-09-17] MEDS ORDERED: GLUCOSE GEL 15 GRAM TUBE BUCCAL PRN (13:00)
[2018-09-17] MEDS: INSULIN ASPART [NOVOLOG] 3 ML PEN SC SCH ×3 (17:49→21:00)
[2018-09-17] MEDS ORDERED: MAGNESIUM HYDROXIDE 30ML CUP PO ONE (20:30)
--- NOTE | 2018-09-17 20:33 | CONS ---
Assessment/Plan Assessment/Plan Problems: (1) Diabetes mellitus type II, uncontrolled Status: Chronic Comment: Pt. rec'ed 19 units of lantus last night. Stop insulin drip and IV dextrose. Increase lantus to 24 units qhs, start Novolog 10 units qac (provided pt. can tolerate po) w/ alg. 1 ISS. Start linagliptin 5 mg/d. Monitor glucose values and hopefully with glucose normal and pancreatitis resolving, renal fxn will improve. (2) Mixed hyperlipidemia Status: Chronic Comment: Hypertriglyceridemia likely responsible for pancreatitis. Normalizing glucose and being on carb-controlled diet should help but will add lopid 600 mg bid and fish oil 2 g bid. Will follow. Consultation Date/Type/Reason Admit Date/Time Sep 15, 2018 at 14:37 Date of Consultation: Sep 17, 2018 Type of Consult Endocrinology Reason for Consultation T2DM w/ Hyperglycemia in acute pancreatitis and acute renal failure Requesting Provider: JADYN DOWLING NP Date/Time of Note DATE: 09/17/18 TIME: 20:14 Hx of Present Illness 48 y/o H M w/ h/o T2DM, HTN, hyperlipidemia, EtOH abuse, recurrent acute pancreatitis, abusing EtOH as recently as 2 weeks ago, was in [facility] until 3 days ago when he developed familiar abd. pain in the periumbilicus and epigastrium. Subsequently developed N/V. Went to [facility] where he was confirmed to be in acute pancreatitis. Transferred to [facility]. (+) ARF w/ Cr > 3.0. Glucose in 200-300 mg/dL range. TG > 1575. Started insulin drip which improved glucose. Now diet being advanced and endo consulted. Constitutional: poor po, requiring IVF Eyes: no complaints ENT: no complaints Respiratory: no complaints Cardiovascular: no complaints Gastrointestinal: pain, decreased appetite, nausea Genitourinary: no complaints Musculoskeletal: no complaints Neurologic: no complaints Past Medical History Medical History: diabetes, high cholesterol, hypertension, pancreatitis Home Meds Active Scripts Ondansetron Hcl* (Zofran*) 8 Mg Tablet, 8 MG PO Q6H PRN for NAUSEA AND OR VOMITING, #20 TAB Prov:OSBALDO CEDENO MD 07/16/18 Omeprazole* (Omeprazole*) 40 Mg Capsule.dr, 40 MG PO DAILY, #14 CAP Prov:OSBALDO CEDENO MD 07/16/18 Ranitidine Hcl* (Zantac*) 150 Mg Tablet, 150 MG PO BID PRN for EPIGASTRIC PAIN, #30 TAB Prov:CHATO ODOM. 06/15/18 Sucralfate* (Carafate*) 1 Gm Tab, 1 GM PO QID, #30 TAB Prov:CHATO ODOM. 06/15/18 Medications Current Medications IV Flush (NS 3 ml) 3 ml PER PROTOCOL IV ; Start 09/15/18 at 16:30 Ondansetron HCl (Zofran Inj) 4 mg Q6H PRN IV NAUSEA/VOMITING Last administered on 09/17/18at 17:41; Admin Dose 4 MG; Start 09/15/18 at 16:30 Acetaminophen (Tylenol Tab) 650 mg Q6H PRN PO .PAIN 1-3 OR TEMP; Start 09/15/18 at 16:30 Acetaminophen (Tylenol Supp) 650 mg Q6H PRN MT .PAIN 1-3 OR TEMP Last administered on 09/15/18at 20:06; Admin Dose 650 MG; Start 09/15/18 at 16:30 Famotidine (Pepcid Iv) 20 mg Q12 IV Last administered on 09/17/18at 08:44; Admin Dose 20 MG; Start 09/15/18 at 21:00 Hydromorphone HCl (Dilaudid) 2 mg Q3H PRN IV SEVERE PAIN LEVEL 7-10 Last administered on 09/17/18at 18:44; Admin Dose 2 MG; Start 09/16/18 at 18:00 Potassium Chloride/Sodium Chloride 1,000 ml @ 0 mls/hr Q0M IV ; Start 09/16/18 at 17:51 Potassium Chloride/Sodium Chloride 1,000 ml @ 0 mls/hr Q0M IV ; Start 09/16/18 at 17:51 Sodium Chloride 1,000 ml @ 0 mls/hr Q0M IV ; Start 09/16/18 at 17:51 Sodium Chloride 1,000 ml @ 100 mls/hr Q10H IV Last administered on 09/17/18at 13:08; Admin Dose 100 MLS/HR; Start 09/17/18 at 02:00 Diagnostic Test (Pha) (Accu-Chek) 1 XX ; Start 09/18/18 at 02:00 Insulin Glargine (Lantus) 24 units DAILY@2000 SC ; Start 09/17/18 at 20:00 Insulin Aspart (Novolog Insulin Pen) 10 unit WITH MEALS SC Last administered on 09/17/18at 17:49; Admin Dose 10 UNIT; Start 09/17/18 at 17:35 Insulin Aspart (Novolog Insulin Pen) NOVOLOG *MILD* ALGORITHM WITH MEALS BEDTIME SC Last administered on 09/17/18at 17:50; Admin Dose 1 UNIT; Start at 17:35 Linagliptin (Tradjenta) 5 mg DAILY PO ; Start 09/18/18 at 09:00 Miscellaneous Information 1 ea NOTE XX ; Start 09/17/18 at 13:00 Glucose (Glutose) 15 gm Q15M PRN PO DECREASED GLUCOSE; Start 09/17/18 at 13:00 Glucose (Glutose) 22.5 gm Q15M PRN PO DECREASED GLUCOSE; Start 09/17/18 at 13:00 Dextrose (D50w Syringe) 25 ml Q15M PRN IV DECREASED GLUCOSE; Start 09/17/18 at 13:00 Dextrose (D50w Syringe) 50 ml Q15M PRN IV DECREASED GLUCOSE; Start 09/17/18 at 13:00 Glucagon (Glucagen) 1 mg Q15M PRN IM DECREASED GLUCOSE; Start 09/17/18 at 13:00 Glucose (Glutose) 15 gm Q15M PRN BUCCAL DECREASED GLUCOSE; Start 09/17/18 at 13:00 Calcium Gluconate 2 gm/Dextrose 120 ml @ 60 mls/hr ONCE ONCE IVPB ; Start 09/17/18 at 19:30; Stop 09/17/18 at 21:29 Methadone HCl (Methadone Liq (Ped)) 2 mg Q4 PO ; Start 09/17/18 at 21:00 Magnesium Hydroxide (Milk Of Mag) 60 ml ONCE ONCE PO ; Start 09/17/18 at 20:30; Stop 09/17/18 at 20:31 Allergies: Coded Allergies: morphine (Verified Allergy, Mild, 09/15/18) rashes, itch after administered morphine Past Surgical History Past Surgical Hx: no surgical history Family History Significant Family History: cancer (breast in mother) Social History b. 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, w/ (+) children Alcohol Use: heavy Smoking Status: Never smoker Drug Use: cocaine (former user), marijuana (former user), other (former amphetamine user) Exam/Review of Systems Exam Vitals VS - Last 72 Hours, by Label Date Temp Pulse Resp B/P (MAP) Pulse Ox O2 O2 Flow FiO2 Time Delivery Rate 09/17/18 115 21 150/94 97 Nasal 2.0 19:00 (112) Cannula 09/17/18 117 27 152/95 98 Nasal 2.0 18:00 (114) Cannula 09/17/18 117 26 150/97 99 Nasal 2.0 17:00 (114) Cannula 09/17/18 99.2 116 25 156/98 98 Nasal 2.0 16:00 (117) Cannula 09/17/18 117 16:00 09/17/18 99.7 121 29 146/92 92 Nasal 2.0 15:00 (110) Cannula 09/17/18 117 21 127/60 91 Nasal 2.0 14:00 (82) Cannula 09/17/18 112 26 135/77 95 Nasal 2.0 13:00 (96) Cannula 09/17/18 109 12:00 09/17/18 98.2 109 30 149/108 96 Nasal 2.0 12:00 (122) Cannula 09/17/18 110 24 147/92 96 Nasal 2.0 11:00 (110) Cannula 09/17/18 106 22 146/77 92 Room Air 10:00 (100) 09/17/18 105 26 132/88 94 Room Air 09:00 (103) 09/17/18 109 08:00 09/17/18 Nasal 2.0 08:00 Cannula 09/17/18 98.5 109 25 126/87 94 Room Air 08:00 (100) 09/17/18 114 21 124/86 93 Room Air 07:00 (99) 09/17/18 112 25 136/84 92 Room Air 06:00 (101) 09/17/18 113 24 93 Room Air 05:00 09/17/18 112 04:00 09/17/18 98.2 112 27 133/92 96 Room Air 04:00 (106) 09/17/18 112 24 138/87 96 Room Air 03:00 (104) 09/17/18 114 19 126/82 95 Room Air 02:00 (97) 09/17/18 115 25 95 Room Air 01:00 09/17/18 112 00:00 09/17/18 98.5 113 32 123/71 94 Room Air 00:00 (88) 09/16/18 120 32 146/90 97 Room Air 23:00 (108) 09/16/18 115 22 96 Room Air 22:00 09/16/18 115 20 133/95 94 Room Air 21:00 (108) 09/16/18 117 20:00 09/16/18 98.5 116 25 130/100 93 Room Air 20:00 (110) 09/16/18 113 23 122/87 95 Room Air 19:00 (99) 09/16/18 109 18 92/77 (82) 97 Room Air 18:00 09/16/18 108 22 134/77 96 Room Air 17:00 (96) 09/16/18 99.1 112 21 120/49 95 Room Air 16:00 (72) 09/16/18 110 16:00 09/16/18 108 23 137/102 95 Room Air 15:00 (114) 09/16/18 113 16 105/77 94 Room Air 14:00 (86) 09/16/18 115 13:15 09/16/18 99.0 110 22 115/88 96 Room Air 13:15 (97) 09/16/18 84 18 96 Nasal 2.0 12:05 Cannula 09/16/18 98.1 104 19 122/85 94 Room Air 12:02 (97) 09/16/18 98.6 93 18 113/74 94 Room Air 11:29 (87) 09/16/18 98.3 86 18 106/67 94 Room Air 07:45 (80) 09/16/18 98.6 90 18 97/57 (70) 95 01:35 09/15/18 98.7 22:11 09/15/18 99.8 20:06 09/15/18 99.2 65 18 86/52 (63) 94 19:40 09/15/18 98.6 15:59 09/15/18 101.2 103 18 123/83 92 Room Air 15:17 (96) Vital Signs Date Temp Pulse Resp B/P (MAP) Pulse Ox O2 O2 Flow FiO2 Time Delivery Rate 09/17/18 115 21 150/94 97 Nasal 2.0 19:00 (112) Cannula 09/17/18 99.2 16:00 Intake and Output 09/16/18 09/16/18 09/17/18 1515:00 23:00 07:00 IntakeIntake Total 1390 ml 605 ml 652 ml OutputOutput Total 115 ml 130 ml 290 ml BalanceBalance 1275 ml 475 ml 362 ml Constitutional: alert, oriented, obese Psych: no complaints, nl mood/affect Eyes: nl conjunctiva, EOMI, nl lids, nl sclera, PERRL ENMT: nl external ears & nose, mucosa pink and moist Neck: supple, non-tender; No bruits, No masses, No thyromegaly Respiratory: clear to auscultation, normal air movement Cardiovascular: regular rate and rhythm, nl pulses; No edema, No murmurs/extra sounds, No rub Gastrointestinal: soft, nl liver, spleen, bowel sounds, distended, tender (epigastrium); No mass, No rebound or guarding Musculoskeletal: nl extremities to inspection Extremities: normal pulses; No cyanosis, No clubbing, No edema Neurological: [facility] [employer] II-XII intact, nl mental status, nl speech, nl strength Additional Comments Bedside Glucose - 72 Hours Test 09/15/18 15:37 09/15/18 17:54 09/15/18 20:07 09/16/18 01:52 Bedside 225 236 287 303 Glucose mg/dL (70-220) mg/dL (70-220) mg/dL (70-220) mg/dL (70-220) H H H H Test 09/16/18 07:56 09/16/18 09:12 09/16/18 10:38 09/16/18 12:06 Bedside 324 300 278 236 Glucose mg/dL (70-220) mg/dL (70-220) mg/dL (70-220) mg/dL (70-220) H H H H Test 09/16/18 17:39 09/16/18 20:35 09/16/18 21:55 09/16/18 23:18 Bedside 198 120 126 141 Glucose mg/dL (70-220) mg/dL (70-220) mg/dL (70-220) mg/dL (70-220) Test 09/17/18 01:08 09/17/18 02:09 09/17/18 03:01 09/17/18 05:02 Bedside 175 150 115 87 Glucose mg/dL (70-220) mg/dL (70-220) mg/dL (70-220) mg/dL (70-220) Test 09/17/18 06:33 09/17/18 08:01 09/17/18 09:05 09/17/18 10:58 Bedside 117 136 142 166 Glucose mg/dL (70-220) mg/dL (70-220) mg/dL (70-220) mg/dL (70-220) Test 09/17/18 13:23 09/17/18 17:45 Bedside 124 152 Glucose mg/dL (70-220) mg/dL (70-220) Results Result Diagram: 09/17/18 0418 09/17/18 1714 Results 24hrs Laboratory Tests Test 09/16/18 20:34 09/16/18 20:35 09/16/18 21:55 09/16/18 23:18 Sodium Level 133 L Potassium Level 5.3 H Chloride Level 108 Carbon Dioxide Level 14 L Anion Gap 11 Blood Urea Nitrogen 29 H Creatinine 3.53 H Est Glomerular 19 L Filtrat Rate mL/min Glucose Level 112 # Calcium Level 4.6 *L Ionized Calcium 0.7 L (Measured) Total Bilirubin 0.8 Direct Bilirubin 0.00 Indirect Bilirubin 0.8 Aspartate Amino 51 H Transf (AST/SGOT) Alanine 12 L Aminotransferase (AL T/SGPT) Alkaline Phosphatase 33 L Total Protein 6.5 Albumin 3.3 Globulin 3.20 Albumin/Globulin 1.03 Ratio Bedside Glucose 120 126 141 Test 09/16/18 23:45 09/17/18 01:08 09/17/18 02:09 09/17/18 03:01 White Blood Count 5.8 # Red Blood Count 4.17 #L Hemoglobin 11.9 #L Hematocrit 34.5 #L Mean Corpuscular 82.7 Volume Mean Corpuscular 28.5 L Hemoglobin Mean Corpuscular 34.5 Hemoglobin Concent Red Cell 13.2 Distribution Width Platelet Count 162 # Mean Platelet Volume 9.4 Immature 0.300 Granulocytes % Neutrophils % Segmented 39 Neutrophils % (Manual) Band Neutrophils % 31 H (Manual) Lymphocytes % Lymphocytes % 27 (Manual) Monocytes % Monocytes % (Manual) 1 Eosinophils % Eosinophils % 1 (Manual) Basophils % Basophils % (Manual) 1 Nucleated Red Blood 0.0 Cells % Immature 0.020 Granulocytes # Neutrophils # Neutrophils # 2.4 (Manual) Band Neutrophils # 1.7 H Lymphocytes (Manual) 1.5 Lymphocytes # Monocytes # Monocytes # (Manual) 0.0 L Eosinophils # Basophils # Basophils # (Manual) 0.0 Nucleated Red Blood Cells # Platelet Estimate NORMAL Polychromasia 2+ Poikilocytosis 1+ Anisocytosis 1+ Microcytosis 1+ Sodium Level 129 L Potassium Level 4.5 Chloride Level 106 Carbon Dioxide Level 16 L Anion Gap 7 Blood Urea Nitrogen 31 H Creatinine 3.36 H Est Glomerular 20 L Filtrat Rate mL/min Glucose Level 158 Calcium Level 4.5 *L Phosphorus Level 3.1 Magnesium Level 1.4 L Total Bilirubin 0.9 Direct Bilirubin 0.00 Indirect Bilirubin 0.9 Acetone Level NEGATIVE (Chemistry) Aspartate Amino 48 H Transf (AST/SGOT) Alanine 18 Aminotransferase (AL T/SGPT) Alkaline Phosphatase 32 L Total Protein 6.0 L Albumin 3.0 L Globulin 3.00 Albumin/Globulin 1.00 Ratio Bedside Glucose 175 150 115 Test 09/17/18 04:18 09/17/18 05:02 09/17/18 06:33 09/17/18 08:01 White Blood Count 6.1 Red Blood Count 4.36 L Hemoglobin 12.5 L Hematocrit 36.7 L Mean Corpuscular 84.2 Volume Mean Corpuscular 28.7 L Hemoglobin Mean Corpuscular 34.1 Hemoglobin Concent Red Cell 13.3 Distribution Width Platelet Count 193 Mean Platelet Volume 9.8 Immature 0.500 H Granulocytes % Neutrophils % 67.2 Segmented 50 Neutrophils % (Manual) Band Neutrophils % 19 H (Manual) Lymphocytes % 26.3 Lymphocytes % 28 (Manual) Monocytes % 4.6 Monocytes % (Manual) 2 Eosinophils % 0.7 Basophils % 0.7 Basophils % (Manual) 1 Nucleated Red Blood 0.0 Cells % Immature 0.030 Granulocytes # Neutrophils # 4.1 Neutrophils # 3.1 (Manual) Band Neutrophils # 1.1 H Lymphocytes (Manual) 1.7 Lymphocytes # 1.6 Monocytes # 0.3 Monocytes # (Manual) 0.1 L Eosinophils # 0.0 Basophils # 0.0 Basophils # (Manual) 0.0 Nucleated Red Blood 0.0 Cells # Platelet Estimate NORMAL Giant Platelets 1 H Poikilocytosis 1+ Anisocytosis 1+ Microcytosis 1+ Macrocytosis 1+ Sodium Level 134 L Potassium Level 4.8 Chloride Level 105 Carbon Dioxide Level 18 L Anion Gap 11 Blood Urea Nitrogen 33 H Creatinine 3.59 H Est Glomerular 18 L Filtrat Rate mL/min Glucose Level 81 # Lactic Acid Level 2.0 Calcium Level 4.6 *L Phosphorus Level 3.3 Magnesium Level 1.4 L Total Bilirubin 1.1 Direct Bilirubin 0.00 Indirect Bilirubin 1.1 Acetone Level NEGATIVE (Chemistry) Aspartate Amino 59 H Transf (AST/SGOT) Alanine 12 L Aminotransferase (AL T/SGPT) Alkaline Phosphatase 31 L Total Protein 6.3 Albumin 3.2 L Globulin 3.10 Albumin/Globulin 1.03 Ratio Lipase 3693 H Bedside Glucose 87 117 136 Test 09/17/18 09:05 09/17/18 10:58 09/17/18 13:23 09/17/18 17:14 Bedside Glucose 142 166 124 Sodium Level 127 L Potassium Level 5.0 Chloride Level 103 Carbon Dioxide Level 15 L Anion Gap 9 Blood Urea Nitrogen 40 H Creatinine 3.20 H Est Glomerular 21 L Filtrat Rate mL/min Glucose Level 154 Calcium Level 4.8 *L Test 09/17/18 17:45 Bedside Glucose 152 Medications Medication Current Medications IV Flush (NS 3 ml) 3 ml PER PROTOCOL IV ; Start 09/15/18 at 16:30 Ondansetron HCl (Zofran Inj) 4 mg Q6H PRN IV NAUSEA/VOMITING Last administered on 09/17/18at 17:41; Admin Dose 4 MG; Start 09/15/18 at 16:30 Acetaminophen (Tylenol Tab) 650 mg Q6H PRN PO .PAIN 1-3 OR TEMP; Start 09/15/18 at 16:30 Acetaminophen (Tylenol Supp) 650 mg Q6H PRN MT .PAIN 1-3 OR TEMP Last administered on 09/15/18at 20:06; Admin Dose 650 MG; Start 09/15/18 at 16:30 Famotidine (Pepcid Iv) 20 mg Q12 IV Last administered on 09/17/18at 08:44; Admin Dose 20 MG; Start 09/15/18 at 21:00 Hydromorphone HCl (Dilaudid) 2 mg Q3H PRN IV SEVERE PAIN LEVEL 7-10 Last adm inistered on 09/17/18at 18:44; Admin Dose 2 MG; Start 09/16/18 at 18:00 Potassium Chloride/Sodium Chloride 1,000 ml @ 0 mls/hr Q0M IV ; Start 09/16/18 at 17:51 Potassium Chloride/Sodium Chloride 1,000 ml @ 0 mls/hr Q0M IV ; Start 09/16/18 at 17:51 Sodium Chloride 1,000 ml @ 0 mls/hr Q0M IV ; Start 09/16/18 at 17:51 Sodium Chloride 1,000 ml @ 100 mls/hr Q10H IV Last administered on 09/17/18at 13:08; Admin Dose 100 MLS/HR; Start 09/17/18 at 02:00 Diagnostic Test (Pha) (Accu-Chek) 1 ea 02 XX ; Start 09/18/18 at 02:00 Insulin Glargine (Lantus) 24 units DAILY@2000 SC ; Start 09/17/18 at 20:00 Insulin Aspart (Novolog Insulin Pen) 10 unit WITH MEALS SC Last administered on 09/17/18at 17:49; Admin Dose 10 UNIT; Start 09/17/18 at 17:35 Insulin Aspart (Novolog Insulin Pen) NOVOLOG *MILD* ALGORITHM WITH MEALS BEDTIME SC Last administered on 09/17/18at 17:50; Admin Dose 1 UNIT; Start 09/17/18 at 17:35 Linagliptin (Tradjenta) 5 mg DAILY PO ; Start 09/18/18 at 09:00 Miscellaneous Information 1 ea NOTE XX ; Start 09/17/18 at 13:00 Glucose (Glutose) 15 gm Q15M PRN PO DECREASED GLUCOSE; Start 09/17/18 at 13:00 Glucose (Glutose) 22.5 gm Q15M PRN PO DECREASED GLUCOSE; Start 09/17/18 at 13:00 Dextrose (D50w Syringe) 25 ml Q15M PRN IV DECREASED GLUCOSE; Start 09/17/18 at 13:00 Dextrose (D50w Syringe) 50 ml Q15M PRN IV DECREASED GLUCOSE; Start 09/17/18 at 13:00 Glucagon (Glucagen) 1 mg Q15M PRN IM DECREASED GLUCOSE; Start 09/17/18 at 13:00 Glucose (Glutose) 15 gm Q15M PRN BUCCAL DECREASED GLUCOSE; Start 09/17/18 at 13:00 Calcium Gluconate 2 gm/Dextrose 120 ml @ 60 mls/hr ONCE ONCE IVPB ; Start 09/17/18 at 19:30; Stop 09/17/18 at 21:29 Methadone HCl (Methadone Liq (Ped)) 2 mg Q4 PO ; Start 09/17/18 at 21:00 Magnesium Hydroxide (Milk Of Mag) 60 ml ONCE ONCE PO ; Start 09/17/18 at 20:30; Stop 09/17/18 at 20:31 IDA GONZAELZ MD Sep 17, 2018 20:25
[2018-09-17] MEDS: METHADONE (1 MG/1 ML PO SYG) PO SCH (21:23)
[2018-09-17] MEDS: INSULIN GLARGINE [LANTus] (100 UNITS/ML) SYG SC SCH (21:36)
[2018-09-18] VITALS (33 sets, daily range): BP systolic 108–169; BP diastolic 71–105; PULSE 105–130; RESP 9–29
[2018-09-18] MEDS: FISH OIL 1,000 MG CAP PO SCH ×3 (00:22→20:43)
[2018-09-18] MEDS: GEMFIBROZIL 600 MG TAB PO SCH ×3 (00:22→20:43)
[2018-09-18] MEDS: SOD CHLORIDE 0.9% 1,000 ML IV SCH ×3 (00:24→17:41)
[2018-09-18] MEDS: METHADONE (1 MG/1 ML PO SYG) PO SCH ×6 (00:35→20:55)
[2018-09-18] MEDS ORDERED: ACCU-CHEK XX SCH (02:00)
[2018-09-18] MEDS ORDERED: NA BICARBONATE 8.4% 50 ML SYG IV STA (02:58)
[2018-09-18] MEDS ORDERED: IPRATROPIUM (NEB) 0.5 MG/2.5 ML AMP HHN PRN (03:00)
[2018-09-18] MEDS ORDERED: LEVALBUTEROL (NEB) 1.25 MG/0.5 ML AMP HHN PRN (03:00)
[2018-09-18] MEDS ORDERED: LEVALBUTEROL (NEB) 1.25 MG/0.5 ML AMP ONE (03:06)
--- NOTE | 2018-09-18 07:38 | CONS ---
Consult Date/Type/Reason Admit Date/Time Sep 15, 2018 at 14:37 Initial Consult Date Requesting Provider: JADYN DOWLING NP Date/Time of Note DATE: 09/18/18 TIME: 07:29 Subjective 48-year-old male with a past medical history of hepatitis, history of dyslipidemia, history of triglyceridemia, history of diabetes, history of ETOH abuse who reports to an outside hospital for abdominal pain with diagnosis of pancreatitis. patient was placed on IV fluids. A CT scan of the abdomen and pelvis was obtained, which showed evidence of severe acute pancreatitis and marked hepatic steatosis. The patient after 24 hours noted to have a significant tachycardia and acute kidney injury and was subsequently transferred to intensive care unit. The patient's prior baseline creatinine was 0.8 mg/dL. On admission, patient had initial creatinine of 2.84 mg/dL. The patient had hyperkalemia with a potassium level of 7.5 mEq per liter. The patient after being brought to the intensive care unit was started on aggressive IV hydration.There have been no reports of any hemoptysis, hematemesis or hematochezia. continues good uo. PAST MEDICAL HISTORY: As stated above, history of dyslipidemia, history of triglyceridemia, history of diabetes, history of pancreatitis and history of ETOH use. PHYSICAL EXAMINATION: HEENT: Head is normocephalic. NECK: Supple. HEART: Regular rate. LUNGS: Show diminished breath sounds at the base. ABDOMEN: Soft, positive tenderness to palpation. EXTREMITIES: Negative for clubbing, cyanosis, no edema. DERMATOLOGIC: No rashes. MUSCULOSKELETAL: No joint effusions. NEUROLOGIC: No focal deficits. Objective Vitals Vital Signs Date Temp Pulse Resp B/P (MAP) Pulse Ox O2 O2 Flow FiO2 Time Delivery Rate 09/18/18 110 14 131/89 92 Nasal 06:00 (103) Cannula 09/18/18 98.4 04:00 09/18/18 4.0 03:13 Intake and Output 09/17/18 09/17/18 09/18/18 1515:00 23:00 07:00 IntakeIntake Total 1885 ml 1450 ml 420 ml OutputOutput Total 350 ml 675 ml 575 ml BalanceBalance 1535 ml 775 ml -155 ml Results/Medications Result Diagram: 09/18/18 0515 09/18/18 0515 Results 24 hrs Laboratory Tests Test 09/17/18 08:01 09/17/18 09:05 09/17/18 10:58 09/17/18 13:23 Bedside Glucose 136 142 166 124 Test 09/17/18 17:14 09/17/18 17:45 09/17/18 21:33 09/17/18 23:49 Sodium Level 127 L Potassium Level 5.0 Chloride Level 103 Carbon Dioxide 15 L Level Anion Gap 9 Blood Urea 40 H Nitrogen Creatinine 3.20 H Est Glomerular 21 L Filtrat Rate mL/min Glucose Level 154 Calcium Level 4.8 *L Bedside Glucose 152 144 135 Test 09/18/18 00:34 09/18/18 02:15 09/18/18 05:04 09/18/18 05:15 Bedside Glucose 135 146 Blood Gas Blood arterial Specimen Source Arterial Blood 09/18/2018 2:40:2 Date Drawn 1 AM Arterial Blood pH 7.283 *L (Temp corrected) Arterial Blood 31.3 L pCO2 (Temp correct) Arterial Blood 99.6 pO2 (Temp corrected) Arterial Blood 14.5 L HCO3 Arterial Blood -11.1 L Base Excess Arterial Blood 97.5 Oxygen Saturation Jarred Test ACCEPTAB Arterial Blood Right Radial Gas Puncture Site Arterial 2.2 Blood Carboxyhemo globin Arterial Blood 1.2 Methemoglobin Blood Gas A-a O2 99.2 H Differential Oxyhemoglobin 94.2 Percent Blood Gas 37.0 Temperature Blood Gas Actual 24 Respiration Rate Blood Gas NASAL CANNULA Modality FiO2 33.0 Blood Gas DARRICK. F RN Critical Value Read Back Blood Gas LT Notified Whom Blood Gas 09/18/2018 2:51:3 Notified Time 7 AM White Blood Count 4.5 #L Red Blood Count 3.06 #L Hemoglobin 8.7 #L Hematocrit 25.8 #L Mean Corpuscular 84.3 Volume Mean Corpuscular 28.4 L Hemoglobin Mean Corpuscular 33.7 Hemoglobin Concen t Red Cell 13.2 Distribution Width Platelet Count 141 # Mean Platelet 9.6 Volume Immature 0.700 H Granulocytes % Neutrophils % Lymphocytes % Monocytes % Eosinophils % Basophils % Nucleated Red 0.0 Blood Cells % Immature 0.030 Granulocytes # Neutrophils # Lymphocytes # Monocytes # Eosinophils # Basophils # Nucleated Red Blood Cells # Sodium Level 134 L Potassium Level 4.3 Chloride Level 102 Carbon Dioxide 18 L Level Anion Gap 14 H Blood Urea 40 H Nitrogen Creatinine 2.84 H Est Glomerular 24 L Filtrat Rate mL/min Glucose Level 153 Calcium Level 5.6 *L Home Meds Active Scripts Ondansetron Hcl* (Zofran*) 8 Mg Tablet, 8 MG PO Q6H PRN for NAUSEA AND OR VOMITING, #20 TAB Prov:OSBALDO CEDENO MD 07/16/18 Omeprazole* (Omeprazole*) 40 Mg Capsule.dr, 40 MG PO DAILY, #14 CAP Prov:OSBALDO CEDENO MD 07/16/18 Ranitidine Hcl* (Zantac*) 150 Mg Tablet, 150 MG PO BID PRN for EPIGASTRIC PAIN, #30 TAB Prov:CHATO ODOM 06/15/18 Sucralfate* (Carafate*) 1 Gm Tab, 1 GM PO QID, #30 TAB Prov:CHATO ODOM 06/15/18 Medications Current Medications IV Flush (NS 3 ml) 3 ml PER PROTOCOL IV ; Start 09/15/18 at 16:30 Ondansetron HCl (Zofran Inj) 4 mg Q6H PRN IV NAUSEA/VOMITING Last administered on 09/17/18at 17:41; Admin Dose 4 MG; Start 09/15/18 at 16:30 Acetaminophen (Tylenol Tab) 650 mg Q6H PRN PO .PAIN 1-3 OR TEMP; Start 09/15/18 at 16:30 Acetaminophen (Tylenol Supp) 650 mg Q6H PRN [place] .PAIN 1-3 OR TEMP Last administered on 09/15/18at 20:06; Admin Dose 650 MG; Start 09/15/18 at 16:30 Famotidine (Pepcid Iv) 20 mg Q12 IV Last administered on 09/17/18at 21:24; Admin Dose 20 MG; Start 09/15/18 at 21:00 Hydromorphone HCl (Dilaudid) 2 mg Q3H PRN IV SEVERE PAIN LEVEL 7-10 Last administered on 09/17/18at 21:19; Admin Dose 2 MG; Start 09/16/18 at 18:00 Sodium Chloride 1,000 ml @ 100 mls/hr Q10H IV Last administered on 09/18/18at 00:24; Admin Dose 100 MLS/HR; Start 09/17/18 at 02:00 Diagnostic Test (Pha) (Accu-Chek) 1 XX ; Start 09/18/18 at 02:00 Insulin Glargine (Lantus) 24 units DAILY@2000 SC Last administered on 09/17/18at 21:36; Admin Dose 24 UNITS; Start 09/17/18 at 20:00 Insulin Aspart (Novolog Insulin Pen) 10 unit WITH MEALS SC Last administered on 09/17/18at 17:49; Admin Dose 10 UNIT; Start 09/17/18 at 17:35 Insulin Aspart (Novolog Insulin Pen) NOVOLOG *MILD* ALGORITHM WITH MEALS BEDTIME SC Last administered on 09/17/18at 17:50; Admin Dose 1 UNIT; Start 09/17/18 at 17:35 Linagliptin (Tradjenta) 5 mg DAILY PO ; Start 09/18/18 at 09:00 Miscellaneous Information 1 ea NOTE XX ; Start 09/17/18 at 13:00 Glucose (Glutose) 15 gm Q15M PRN PO DECREASED GLUCOSE; Start 09/17/18 at 13:00 Glucose (Glutose) 22.5 gm Q15M PRN PO DECREASED GLUCOSE; Start 09/17/18 at 13:00 Dextrose (D50w Syringe) 25 ml Q15M PRN IV DECREASED GLUCOSE; Start 09/17/18 at 13:00 Dextrose (D50w Syringe) 50 ml Q15M PRN IV DECREASED GLUCOSE; Start 09/17/18 at 13:00 Glucagon (Glucagen) 1 mg Q15M PRN IM DECREASED GLUCOSE; Start 09/17/18 at 13:00 Glucose (Glutose) 15 gm Q15M PRN BUCCAL DECREASED GLUCOSE; Start 09/17/18 at 13:00 Methadone HCl (Methadone Liq (Ped)) 2 mg Q4 PO Last administered on 09/18/18at 05:22; Admin Dose 2 MG; Start 09/17/18 at 21:00 Gemfibrozil (Lopid) 600 mg BID PO Last administered on 09/18/18at 00:22; Admin Dose 600 MG; Start 09/17/18 at 21:00 Fish Oil (Fish Oil) 2,000 mg BID PO Last administered on 09/18/18at 00:22; Admin Dose 2,000 MG; Start 09/17/18 at 21:00 Levalbuterol (Xopenex Neb) 1.25 mg Q3H RESP THERAPY PRN HHN SHORTNESS OF BREATH Last administered on 09/18/18at 03:12; Admin Dose 1.25 MG; Start 09/18/18 at 03:00 Ipratropium [place] (Atrovent 0.02% (Neb)) 0.5 mg Q3H RESP THERAPY PRN HHN SHORTNESS OF BREATH Last administered on 09/18/18at 03:12; Admin Dose 0.5 MG; Start 09/18/18 at 03:00 Assessment/Plan Hospital Course (Demo Recall) 1. Oliguric acute kidney injury with previously normal baseline creatinine. Etiology of acute kidney injury secondary to acute tubular necrosis due to severe pancreatitis. The patient's urinalysis shows evidence of granular casts consistent with tubular injury. The patient also noted to have FENa of less than 1% and nonglomerular proteinuria. - improving gradually. - Etiology is consistent with decreased effective arterial volume in the setting of acute pancreatitis. - continue patient on aggressive IV hydration. - all meds dosed ok. - trend creatinine. We will continue to monitor renal function and hyperkalemia closely. If renal function should progressively decline, we would consider possible renal placement therapy. - watch for diuretic phase of camilla with el 2. Severe hyperkalemia. Etiology secondary to acute kidney injury, hyperglycemia, metabolic acidosis. The patient's potassium levels have improved with medical management, Kayexalate, IV insulin. We will continue to monitor and trend potassium levels closely. Continue to also correct underlying hyperglycemia, which will help shift potassium levels intracellularly. We will monitor closely. 3. Metabolic acidosis, etiology secondary to acute kidney injury. Continue to monitor. No need for bicarbonate therapy at this time. 4. Hyponatremia secondary to acute kidney injury. Continue to monitor. 5. Mineral bone disorder. The patient is hypocalcemic, etiology secondary to acute pancreatitis. Plan is to check an ionized calcium. We will replete with calcium gluconate and monitor closely. 6. Lactic acidosis secondary to acute pancreatitis. Continue IV fluids. Continue to trend lactic acid levels. 6. Acute severe pancreatitis. Etiology may be secondary to hypertriglyceridemia, questionable alcohol use. Continue aggressive IV hydration. Continue n.p.o. Continue pain control. We will monitor closely. 7. Hypertriglyceridemia. Continue to monitor. Continue medical management. 8. Diabetes. Glucose levels remain elevated, consider insulin drip. 9. History of ETOH abuse. Monitor for any signs of acute withdrawals. 10. hypocalcemia- possible related to saponification from pancreatitis. it is associated with precipitation of calcium soaps in the abdominal cavity. The actual mechanism remains unclear. bolus doses recommended. 11. anemia- sudden drop. poss hemodilution. trend. GUSTAVO BAEZ MD Sep 18, 2018 07:38
[2018-09-18] MEDS: INSULIN ASPART [NOVOLOG] 3 ML PEN SC SCH ×6 (07:47→20:56)
[2018-09-18] MEDS: HYDROmorphONE 1 MG/ML SYG IV PRN ×3 (08:17→18:49)
[2018-09-18] MEDS: FAMOTIDINE 20 MG INJ IV SCH ×2 (08:21→20:43)
[2018-09-18] MEDS ORDERED: CALCIUM GLUCONATE 10% 2 GM in DEXTROSE 5% 100 ML IVPB ONE (08:30)
[2018-09-18] MEDS ORDERED: LINAGLIPTIN 5 MG TABLET PO SCH (09:00)
--- NOTE | 2018-09-18 10:11 | CONS ---
Assessment/Plan Assessment/Plan Problems: (1) Diabetes mellitus type II, uncontrolled Status: Chronic Comment: Good glycemic control on current sq insulin doses. Was planning to give linagliptin but should not in case of pancreatitis. Will monitor glucose and adjust doses. (2) Mixed hyperlipidemia Status: Chronic Comment: Cont. lopid and fish oil Consultation Date/Type/Reason Admit Date/Time Sep 15, 2018 at 14:37 Initial Consult Date 09/17/18 Type of Consult Endocrinology Reason for Consultation T2DM management Requesting Provider: JADYN DOWLING NP Date/Time of Note DATE: 09/18/18 TIME: 10:04 24 HR Interval Summary Subjective hx not possible: pt non-verbal (sleeping) Exam/Review of Systems Exam Vitals VS - Last 72 Hours, by Label Date Temp Pulse Resp B/P (MAP) Pulse Ox O2 O2 Flow FiO2 Time Delivery Rate 09/18/18 114 08:01 09/18/18 110 14 131/89 92 Nasal 06:00 (103) Cannula 09/18/18 111 23 93 Nasal 05:00 Cannula 09/18/18 114 04:00 09/18/18 98.4 116 13 95 Nasal 04:00 Cannula 09/18/18 94 4.0 03:13 09/18/18 101 20 97 Nasal 4.0 03:13 Cannula 09/18/18 112 119/95 97 Nasal 03:00 (103) Cannula 09/18/18 110 22 152/102 99 Nasal 02:00 (119) Cannula 09/18/18 112 16 144/98 96 Nasal 01:00 (113) Cannula 09/18/18 119 00:00 09/18/18 98.2 118 16 149/90 95 Nasal 00:00 (109) Cannula 09/17/18 117 12 89 Nasal 23:00 Cannula 09/17/18 114 27 96 Nasal 22:00 Cannula 09/17/18 98.4 113 25 97 Nasal 2.0 20:00 Cannula 09/17/18 116 20:00 09/17/18 Nasal 2.0 20:00 Cannula 09/17/18 115 21 150/94 97 Nasal 2.0 19:00 (112) Cannula 09/17/18 117 27 152/95 98 Nasal 2.0 18:00 (114) Cannula 09/17/18 117 26 150/97 99 Nasal 2.0 17:00 (114) Cannula 09/17/18 99.2 116 25 156/98 98 Nasal 2.0 16:00 (117) Cannula 09/17/18 117 16:00 09/17/18 99.7 121 29 146/92 92 Nasal 2.0 15:00 (110) Cannula 09/17/18 117 21 127/60 91 Nasal 2.0 14:00 (82) Cannula 09/17/18 112 26 135/77 95 Nasal 2.0 13:00 (96) Cannula 09/17/18 109 12:00 09/17/18 98.2 109 30 149/108 96 Nasal 2.0 12:00 (122) Cannula 09/17/18 110 24 147/92 96 Nasal 2.0 11:00 (110) Cannula 09/17/18 106 22 146/77 92 Room Air 10:00 (100) 09/17/18 105 26 132/88 94 Room Air 09:00 (103) 09/17/18 109 08:00 09/17/18 Nasal 2.0 08:00 Cannula 09/17/18 98.5 109 25 126/87 94 Room Air 08:00 (100) 09/17/18 114 21 124/86 93 Room Air 07:00 (99) 09/17/18 112 25 136/84 92 Room Air 06:00 (101) 09/17/18 113 24 93 Room Air 05:00 09/17/18 112 04:00 09/17/18 98.2 112 27 133/92 96 Room Air 04:00 (106) 09/17/18 112 24 138/87 96 Room Air 03:00 (104) 09/17/18 114 19 126/82 95 Room Air 02:00 (97) 09/17/18 115 25 95 Room Air 01:00 09/17/18 112 00:00 09/17/18 98.5 113 32 123/71 94 Room Air 00:00 (88) 09/16/18 120 32 146/90 97 Room Air 23:00 (108) 09/16/18 115 22 96 Room Air 22:00 09/16/18 115 20 133/95 94 Room Air 21:00 (108) 09/16/18 117 20:00 09/16/18 98.5 116 25 130/100 93 Room Air 20:00 (110) 09/16/18 113 23 122/87 95 Room Air 19:00 (99) 09/16/18 109 18 92/77 (82) 97 Room Air 18:00 09/16/18 108 22 134/77 96 Room Air 17:00 (96) 09/16/18 99.1 112 21 120/49 95 Room Air 16:00 (72) 09/16/18 110 16:00 09/16/18 108 23 137/102 95 Room Air 15:00 (114) 09/16/18 113 16 105/77 94 Room Air 14:00 (86) 09/16/18 115 13:15 09/16/18 99.0 110 22 115/88 96 Room Air 13:15 (97) 09/16/18 84 18 96 Nasal 2.0 12:05 Cannula 09/16/18 98.1 104 19 122/85 94 Room Air 12:02 (97) 09/16/18 98.6 93 18 113/74 94 Room Air 11:29 (87) 09/16/18 98.3 86 18 106/67 94 Room Air 07:45 (80) 09/16/18 98.6 90 18 97/57 (70) 95 01:35 09/15/18 98.7 22:11 09/15/18 99.8 20:06 09/15/18 99.2 65 18 86/52 (63) 94 19:40 09/15/18 98.6 15:59 09/15/18 101.2 103 18 123/83 92 Room Air 15:17 (96) Vital Signs Date Temp Pulse Resp B/P (MAP) Pulse Ox O2 O2 Flow FiO2 Time Delivery Rate 09/18/18 114 08:01 09/18/18 14 131/89 92 Nasal 06:00 (103) Cannula 09/18/18 98.4 04:00 09/18/18 4.0 03:13 Intake and Output 09/17/18 09/17/18 09/18/18 1515:00 23:00 07:00 IntakeIntake Total 1885 ml 1450 ml 820 ml OutputOutput Total 350 ml 675 ml 575 ml BalanceBalance 1535 ml 775 ml 245 ml Constitutional: obese; No alert (asleep) Respiratory: clear to auscultation, normal air movement Cardiovascular: regular rate and rhythm, nl pulses; No edema, No murmurs/extra sounds, No rub Gastrointestinal: bowel sounds, distended, firm; No mass, No rebound or guarding Musculoskeletal: nl extremities to inspection Extremities: normal pulses; No cyanosis, No clubbing, No edema Neurological: other (sleeping) Additional Comments Bedside Glucose - 72 Hours Test 09/15/18 15:37 09/15/18 17:54 09/15/18 20:07 09/16/18 01:52 Bedside 225 236 287 303 Glucose mg/dL (70-220) mg/dL (70-220) mg/dL (70-220) mg/dL (70-220) H H H H Test 09/16/18 07:56 09/16/18 09:12 09/16/18 10:38 09/16/18 12:06 Bedside 324 300 278 236 Glucose mg/dL (70-220) mg/dL (70-220) mg/dL (70-220) mg/dL (70-220) H H H H Test 09/16/18 17:39 09/16/18 20:35 09/16/18 21:55 09/16/18 23:18 Bedside 198 120 126 141 Glucose mg/dL (70-220) mg/dL (70-220) mg/dL (70-220) mg/dL (70-220) Test 09/17/18 01:08 09/17/18 02:09 09/17/18 03:01 09/17/18 05:02 Bedside 175 150 115 87 Glucose mg/dL (70-220) mg/dL (70-220) mg/dL (70-220) mg/dL (70-220) Test 09/17/18 06:33 09/17/18 08:01 09/17/18 09:05 09/17/18 10:58 Bedside 117 136 142 166 Glucose mg/dL (70-220) mg/dL (70-220) mg/dL (70-220) mg/dL (70-220) Test 09/17/18 13:23 09/17/18 17:45 09/17/18 21:33 09/17/18 23:49 Bedside 124 152 144 135 Glucose mg/dL (70-220) mg/dL (70-220) mg/dL (70-220) mg/dL (70-220) Test 09/18/18 00:34 09/18/18 05:04 09/18/18 07:45 Bedside 135 146 168 Glucose mg/dL (70-220) mg/dL (70-220) mg/dL (70-220) Results Result Diagram: 09/18/18 0515 09/18/18 0515 Results 24hrs Laboratory Tests Test 09/17/18 10:58 09/17/18 13:23 09/17/18 17:14 09/17/18 17:45 Bedside Glucose 166 124 152 Sodium Level 127 L Potassium Level 5.0 Chloride Level 103 Carbon Dioxide 15 L Level Anion Gap 9 Blood Urea 40 H Nitrogen Creatinine 3.20 H Est Glomerular 21 L Filtrat Rate mL/min Glucose Level 154 Calcium Level 4.8 *L Test 09/17/18 21:33 09/17/18 23:49 09/18/18 00:34 09/18/18 02:15 Bedside Glucose 144 135 135 Blood Gas Blood arterial Specimen Source Arterial Blood 09/18/2018 2:40:2 Date Drawn 1 AM Arterial Blood pH 7.283 *L (Temp corrected) Arterial Blood 31.3 L pCO2 (Temp correct) Arterial Blood 99.6 pO2 (Temp corrected) Arterial Blood 14.5 L HCO3 Arterial Blood -11.1 L Base Excess Arterial Blood 97.5 Oxygen Saturation Jarred Test ACCEPTAB Arterial Blood Right Radial Gas Puncture Site Arterial 2.2 Blood Carboxyhemo globin Arterial Blood 1.2 Methemoglobin Blood Gas A-a O2 99.2 H Differential Oxyhemoglobin 94.2 Percent Blood Gas 37.0 Temperature Blood Gas Actual 24 Respiration Rate Blood Gas NASAL CANNULA Modality FiO2 33.0 Blood Gas DARRICK. F RN Critical Value Read Back Blood Gas LT Notified Whom Blood Gas 09/18/2018 2:51:3 Notified Time 7 AM Test 09/18/18 05:04 09/18/18 05:15 09/18/18 07:45 Bedside Glucose 146 168 White Blood Count 4.5 #L Red Blood Count 3.06 #L Hemoglobin 8.7 #L Hematocrit 25.8 #L Mean Corpuscular 84.3 Volume Mean Corpuscular 28.4 L Hemoglobin Mean Corpuscular 33.7 Hemoglobin Concen t Red Cell 13.2 Distribution Width Platelet Count 141 # Mean Platelet 9.6 Volume Immature 0.700 H Granulocytes % Neutrophils % Segmented 34 L Neutrophils % (Manual) Band Neutrophils 39 H % (Manual) Lymphocytes % Lymphocytes % 15 (Manual) Monocytes % Monocytes % 8 (Manual) Eosinophils % Eosinophils % 3 (Manual) Basophils % Metamyelocytes % 1 H (manual) Nucleated Red 0.0 Blood Cells % Immature 0.030 Granulocytes # Neutrophils # Neutrophils # 1.6 (Manual) Band Neutrophils 1.7 H # Lymphocytes 0.6 L (Manual) Lymphocytes # Monocytes # Monocytes # 0.3 (Manual) Eosinophils # Basophils # Metamyelocytes # 0.0 Nucleated Red Blood Cells # Platelet Estimate NORMAL Giant Platelets 1 H Polychromasia 3+ Poikilocytosis 1+ Anisocytosis 1+ Microcytosis 1+ Sodium Level 134 L Potassium Level 4.3 Chloride Level 102 Carbon Dioxide 18 L Level Anion Gap 14 H Blood Urea 40 H Nitrogen Creatinine 2.84 H Est Glomerular 24 L Filtrat Rate mL/min Glucose Level 153 Calcium Level 5.6 *L Medications Medication Current Medications IV Flush (NS 3 ml) 3 ml PER PROTOCOL IV ; Start 09/15/18 at 16:30 Ondansetron HCl (Zofran Inj) 4 mg Q6H PRN IV NAUSEA/VOMITING Last administered on 09/17/18at 17:41; Admin Dose 4 MG; Start 09/15/18 at 16:30 Acetaminophen (Tylenol Tab) 650 mg Q6H PRN PO .PAIN 1-3 OR TEMP; Start 09/15/18 at 16:30 Acetaminophen (Tylenol Supp) 650 mg Q6H PRN [place] .PAIN 1-3 OR TEMP Last administered on 09/15/18at 20:06; Admin Dose 650 MG; Start 09/15/18 at 16:30 Famotidine (Pepcid Iv) 20 mg Q12 IV Last administered on 09/18/18at 08:21; Admin Dose 20 MG; Start 09/15/18 at 21:00 Hydromorphone HCl (Dilaudid) 2 mg Q3H PRN IV SEVERE PAIN LEVEL 7-10 Last administered on 09/18/18at 08:17; Admin Dose 2 MG; Start 09/16/18 at 18:00 Sodium Chloride 1,000 ml @ 100 mls/hr Q10H IV Last administered on 09/18/18at 08:20; Admin Dose 100 MLS/HR; Start 09/17/18 at 02:00 Diagnostic Test (Pha) (Accu-Chek) 1 02 XX ; Start 09/18/18 at 02:00 Insulin Glargine (Lantus) 24 units DAILY@2000 SC Last administered on 09/17/18at 21:36; Admin Dose 24 UNITS; Start 09/17/18 at 20:00 Insulin Aspart (Novolog Insulin Pen) 10 unit WITH MEALS SC Last administered on 09/18/18at 07:47; Admin Dose 10 UNIT; Start 09/17/18 at 17:35 Insulin Aspart (Novolog Insulin Pen) NOVOLOG *MILD* ALGORITHM WITH MEALS BEDTIME SC Last administered on 09/18/18at 07:48; Admin Dose 1 UNIT; Start 09/17/18 at 17:35 Miscellaneous Information 1 ea NOTE XX ; Start 09/17/18 at 13:00 Glucose (Glutose) 15 gm Q15M PRN PO DECREASED GLUCOSE; Start 09/17/18 at 13:00 Glucose (Glutose) 22.5 gm Q15M PRN PO DECREASED GLUCOSE; Start 09/17/18 at 13:00 Dextrose (D50w Syringe) 25 ml Q15M PRN IV DECREASED GLUCOSE; Start 09/17/18 at 13:00 Dextrose (D50w Syringe) 50 ml Q15M PRN IV DECREASED GLUCOSE; Start 09/17/18 at 13:00 Glucagon (Glucagen) 1 mg Q15M PRN IM DECREASED GLUCOSE; Start 09/17/18 at 13:00 Glucose (Glutose) 15 gm Q15M PRN BUCCAL DECREASED GLUCOSE; Start 09/17/18 at 13:00 Methadone HCl (Methadone Liq (Ped)) 2 mg Q4 PO Last administered on 09/18/18at 08:20; Admin Dose 2 MG; Start 09/17/18 at 21:00 Gemfibrozil (Lopid) 600 mg BID PO Last administered on 09/18/18 08:21; Admin Dose 600 MG; Start 09/17/18 at 21:00 Fish Oil (Fish Oil) 2,000 mg BID PO Last administered on 09/18/18 08:20; Admin Dose 2,000 MG; Start 09/17/18 at 21:00 Levalbuterol (Xopenex Neb) 1.25 mg Q3H RESP THERAPY PRN HHN SHORTNESS OF BREATH Last administered on 09/18/18at 03:12; Admin Dose 1.25 MG; Start 09/18/18 at 03:00 Ipratropium [place] (Atrovent 0.02% (Neb)) 0.5 mg Q3H RESP THERAPY PRN HHN SHORTNESS OF BREATH Last administered on 09/18/18at 03:12; Admin Dose 0.5 MG; Start 09/18/18 at 03:00 Calcium Gluconate 2 gm/Dextrose 120 ml @ 60 mls/hr ONCE ONCE IVPB Last administered on 09/18/18at 08:50; Admin Dose 60 MLS/HR; Start 09/18/18 at 08:30; Stop 09/18/18 at 10:29 IDA GONZALEZ MD Sep 18, 2018 10:11
[2018-09-18] MEDS ORDERED: MEROPENEM 1 GM/50ML(PMX) 50 ML IVPB SCH (10:30)
--- NOTE | 2018-09-18 12:33 | PN ---
Date/Time of Note Date/Time of Note DATE: 09/18/18 TIME: 12:30 Assessment/Plan VTE Prophylaxis Risk score (from Ns)>0 risk: 2 SCD applied (from Ns): Yes Pharmacological prophylaxis: NA/contraindicated Pharm contraindication: low risk/ambulating Lines/Catheters IV Catheter Type (from [facility]): Peripheral IV Urinary Cath still in place: Yes Reason Cath still needed: other (indicate) (monitor I&O) Assessment/Plan Hospital Course 1. Acute severe pancreatitis. -suspect from hypertriglyceridemia - continue aggressive IVF - [place] Criteria after 48 hrs was roughly 6 indicating 40% mortality or greater 2. Acute kidney injury suspect secondary to ATN from severe pancreatitis - with metabolic acidosis - patternmaker bench consulted - monitor renal panel - continue aggressive hydration - correct electrolytes as needed 3. Hypocalcemia - secondary to pancreatitis - replete prn 4. Hyperkalemia - improved. - kayexalate prn 5. Hypophosphatemia - was repleted - monitor and replete prn 6. Hypomagnesemia - will replete with monitoring of renal function - monitor level 7. Hypertriglyceridemia. -highly elevated - patient reports noncompliance with his home medication - compliance advised. 8. Diabetes mellitus type II. 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 suspect hx Alcohol abuse. -had negative ethanol level on admission - will monitor 10. Medical non-compliance - patient advised on medical compliance Disposition and plan. monitor in ICU. correct electrolytes as needed. eating better. hopeful transition out of icu once more medically stable. f/u AM labs Discussed POC with Dr. Torres Critical Care time: 40 minutes Result Diagram: 09/18/1815 09/18/18 0515 Results 24hrs Laboratory Tests Test 09/17/18 13:23 09/17/18 17:14 09/17/18 17:45 09/17/18 21:33 Bedside Glucose 124 152 144 Sodium Level 127 L Potassium Level 5.0 Chloride Level 103 Carbon Dioxide 15 L Level Anion Gap 9 Blood Urea 40 H Nitrogen Creatinine 3.20 H Est Glomerular 21 L Filtrat Rate mL/min Glucose Level 154 Calcium Level 4.8 *L Test 09/17/18 23:49 09/18/18 00:34 09/18/18 02:15 09/18/18 05:04 Bedside Glucose 135 135 146 Blood Gas Blood arterial Specimen Source Arterial Blood 09/18/2018 2:40:2 Date Drawn 1 AM Arterial Blood pH 7.283 *L (Temp corrected) Arterial Blood 31.3 L pCO2 (Temp correct) Arterial Blood 99.6 pO2 (Temp corrected) Arterial Blood 14.5 L HCO3 Arterial Blood -11.1 L Base Excess Arterial Blood 97.5 Oxygen Saturation Jarred Test ACCEPTAB Arterial Blood Right Radial Gas Puncture Site Arterial 2.2 Blood Carboxyhemo globin Arterial Blood 1.2 Methemoglobin Blood Gas A-a O2 99.2 H Differential Oxyhemoglobin 94.2 Percent Blood Gas 37.0 Temperature Blood Gas Actual 24 Respiration Rate Blood Gas NASAL CANNULA Modality FiO2 33.0 Blood Gas DARRICK. F RN Critical Value Read Back Blood Gas LT Notified Whom Blood Gas 09/18/2018 2:51:3 Notified Time 7 AM Test 09/18/18 05:14 09/18/18 05:15 09/18/18 07:00 09/18/18 07:45 Lactate 6378 H Dehydrogenase White Blood Count 4.5 #L Red Blood Count 3.06 #L Hemoglobin 8.7 #L Hematocrit 25.8 #L Mean Corpuscular 84.3 Volume Mean Corpuscular 28.4 L Hemoglobin Mean Corpuscular 33.7 Hemoglobin Concen t Red Cell 13.2 Distribution Width Platelet Count 141 # Mean Platelet 9.6 Volume Immature 0.700 H Granulocytes % Neutrophils % Segmented 34 L Neutrophils % (Manual) Band Neutrophils 39 H % (Manual) Lymphocytes % Lymphocytes % 15 (Manual) Monocytes % Monocytes % 8 (Manual) Eosinophils % Eosinophils % 3 (Manual) Basophils % Metamyelocytes % 1 H (manual) Nucleated Red 0.0 Blood Cells % Immature 0.030 Granulocytes # Neutrophils # Neutrophils # 1.6 (Manual) Band Neutrophils 1.7 H # Lymphocytes 0.6 L (Manual) Lymphocytes # Monocytes # Monocytes # 0.3 (Manual) Eosinophils # Basophils # Metamyelocytes # 0.0 Nucleated Red Blood Cells # Platelet Estimate NORMAL Giant Platelets 1 H Polychromasia 3+ Poikilocytosis 1+ Anisocytosis 1+ Microcytosis 1+ Sodium Level 134 L Potassium Level 4.3 Chloride Level 102 Carbon Dioxide 18 L Level Anion Gap 14 H Blood Urea 40 H Nitrogen Creatinine 2.84 H Est Glomerular 24 L Filtrat Rate mL/min Glucose Level 153 Calcium Level 5.6 *L Blood Gas Blood arterial Specimen Source Arterial Blood 09/18/2018 10:00: Date Drawn 24 AM Arterial Blood pH 7.329 L (Temp corrected) Arterial Blood 36.9 pCO2 (Temp correct) Arterial Blood 82.2 pO2 (Temp corrected) Arterial Blood 19.0 L HCO3 Arterial Blood -6.4 L Base Excess Arterial Blood 96.3 Oxygen Saturation Jarred Test ACCEPTAB Arterial Blood Right Radial Gas Puncture Site Arterial 2.6 Blood Carboxyhemo globin Arterial Blood 1.4 Methemoglobin Blood Gas A-a O2 88.3 H Differential Oxyhemoglobin 92.4 L Percent Blood Gas 37.0 Temperature Blood Gas NASAL CANNULA Modality FiO2 30.0 Blood Gas Melissa [facility] Notified Whom Blood Gas 09/18/2018 10:13: Notified Time 57 AM Bedside Glucose 168 Test 09/18/18 11:37 Bedside Glucose 148 Subjective 24 Hr Interval Summary Free Text/Dictation patient alert and oriented. States he feels better, much less abd pain Exam/Review of Systems Exam Vitals Vital Signs Date Temp Pulse Resp B/P (MAP) Pulse Ox O2 O2 Flow FiO2 Time Delivery Rate 09/18/18 105 12 134/84 94 Nasal 2.0 10:00 (101) Cannula 09/18/18 98.8 08:00 Intake and Output 09/17/18 09/17/18 09/18/18 1515:00 23:00 07:00 IntakeIntake Total 1885 ml 1450 ml 820 ml OutputOutput Total 350 ml 675 ml 575 ml BalanceBalance 1535 ml 775 ml 245 ml Exam Constitutional: alert, oriented Psych: nl mood/affect Head: normocephalic Eyes: nl conjunctiva Neck: supple, tender Respiratory: clear to auscultation Cardiovascular: regular rate and rhythm Gastrointestinal: soft, non-tender Neurological: [employer] 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 II-XII intact, nl mental status, nl speech Results Results 24hrs Laboratory Tests Test 09/17/18 13:23 09/17/18 17:14 09/17/18 17:45 09/17/18 21:33 Bedside Glucose 124 152 144 Sodium Level 127 L Potassium Level 5.0 Chloride Level 103 Carbon Dioxide 15 L Level Anion Gap 9 Blood Urea 40 H Nitrogen Creatinine 3.20 H Est Glomerular 21 L Filtrat Rate mL/min Glucose Level 154 Calcium Level 4.8 *L Test 09/17/18 23:49 09/18/18 00:34 09/18/18 02:15 09/18/18 05:04 Bedside Glucose 135 135 146 Blood Gas Blood arterial Specimen Source Arterial Blood 09/18/2018 2:40:2 Date Drawn 1 AM Arterial Blood pH 7.283 *L (Temp corrected) Arterial Blood 31.3 L pCO2 (Temp correct) Arterial Blood 99.6 pO2 (Temp corrected) Arterial Blood 14.5 L HCO3 Arterial Blood -11.1 L Base Excess Arterial Blood 97.5 Oxygen Saturation Jarred Test ACCEPTAB Arterial Blood Right Radial Gas Puncture Site Arterial 2.2 Blood Carboxyhemo globin Arterial Blood 1.2 Methemoglobin Blood Gas A-a O2 99.2 H Differential Oxyhemoglobin 94.2 Percent Blood Gas 37.0 Temperature Blood Gas Actual 24 Respiration Rate Blood Gas NASAL CANNULA Modality FiO2 33.0 Blood Gas DARRICK. F RN Critical Value Read Back Blood Gas LT Notified Whom Blood Gas 09/18/2018 2:51:3 Notified Time 7 AM Test 09/18/18 05:14 09/18/18 05:15 09/18/18 07:00 09/18/18 07:45 Lactate 6378 H Dehydrogenase White Blood Count 4.5 #L Red Blood Count 3.06 #L Hemoglobin 8.7 #L Hematocrit 25.8 #L Mean Corpuscular 84.3 Volume Mean Corpuscular 28.4 L Hemoglobin Mean Corpuscular 33.7 Hemoglobin Concen t Red Cell 13.2 Distribution Width Platelet Count 141 # Mean Platelet 9.6 Volume Immature 0.700 H Granulocytes % Neutrophils % Segmented 34 L Neutrophils % (Manual) Band Neutrophils 39 H % (Manual) Lymphocytes % Lymphocytes % 15 (Manual) Monocytes % Monocytes % 8 (Manual) Eosinophils % Eosinophils % 3 (Manual) Basophils % Metamyelocytes % 1 H (manual) Nucleated Red 0.0 Blood Cells % Immature 0.030 Granulocytes # Neutrophils # Neutrophils # 1.6 (Manual) Band Neutrophils 1.7 H # Lymphocytes 0.6 L (Manual) Lymphocytes # Monocytes # Monocytes # 0.3 (Manual) Eosinophils # Basophils # Metamyelocytes # 0.0 Nucleated Red Blood Cells # Platelet Estimate NORMAL Giant Platelets 1 H Polychromasia 3+ Poikilocytosis 1+ Anisocytosis 1+ Microcytosis 1+ Sodium Level 134 L Potassium Level 4.3 Chloride Level 102 Carbon Dioxide 18 L Level Anion Gap 14 H Blood Urea 40 H Nitrogen Creatinine 2.84 H Est Glomerular 24 L Filtrat Rate mL/min Glucose Level 153 Calcium Level 5.6 *L Blood Gas Blood arterial Specimen Source Arterial Blood 09/18/2018 10:00: Date Drawn 24 AM Arterial Blood pH 7.329 L (Temp corrected) Arterial Blood 36.9 pCO2 (Temp correct) Arterial Blood 82.2 pO2 (Temp corrected) Arterial Blood 19.0 L HCO3 Arterial Blood -6.4 L Base Excess Arterial Blood 96.3 Oxygen Saturation Jarred Test ACCEPTAB Arterial Blood Right Radial Gas Puncture Site Arterial 2.6 Blood Carboxyhemo globin Arterial Blood 1.4 Methemoglobin Blood Gas A-a O2 88.3 H Differential Oxyhemoglobin 92.4 L Percent Blood Gas 37.0 Temperature Blood Gas NASAL CANNULA Modality FiO2 30.0 Blood Gas Melissa [facility] Notified Whom Blood Gas 09/18/2018 10:13: Notified Time 57 AM Bedside Glucose 168 Test 09/18/18 11:37 Bedside Glucose 148 Medications Medication Current Medications IV Flush (NS 3 ml) 3 ml PER PROTOCOL IV ; Start 09/15/18 at 16:30 Ondansetron HCl (Zofran Inj) 4 mg Q6H PRN IV NAUSEA/VOMITING Last administered on 09/17/18at 17:41; Admin Dose 4 MG; Start 09/15/18 at 16:30 Acetaminophen (Tylenol Tab) 650 mg Q6H PRN PO .PAIN 1-3 OR TEMP; Start 09/15/18 at 16:30 Acetaminophen (Tylenol Supp) 650 mg Q6H PRN MD .PAIN 1-3 OR TEMP Last administered on 09/15/18at 20:06; Admin Dose 650 MG; Start 09/15/18 at 16:30 Famotidine (Pepcid Iv) 20 mg Q12 IV Last administered on 09/18/18 08:21; Admin Dose 20 MG; Start 09/15/18 at 21:00 Hydromorphone HCl (Dilaudid) 2 mg Q3H PRN IV SEVERE PAIN LEVEL 7-10 Last administered on 09/18/18at 12:14; Admin Dose 2 MG; Start 09/16/18 at 18:00 Sodium Chloride 1,000 ml @ 100 mls/hr Q10H IV Last administered on 09/18/18at 08:20; Admin Dose 100 MLS/HR; Start 09/17/18 at 02:00 Diagnostic Test (Pha) (Accu-Chek) 1 ea 02 XX ; Start 09/18/18 at 02:00 Insulin Glargine (Lantus) 24 units DAILY@2000 SC Last administered on 09/17/18 21:36; Admin Dose 24 UNITS; Start 09/17/18 at 20:00 Insulin Aspart (Novolog Insulin Pen) 10 unit WITH MEALS SC Last administered on 09/18/18at 11:40; Admin Dose 10 UNIT; Start 09/17/18 at 17:35 Insulin Aspart (Novolog Insulin Pen) NOVOLOG *MILD* ALGORITHM WITH MEALS BEDTIME SC Last administered on 09/18/18 11:41; Admin Dose 1 UNIT; Start 09/17/18 at 17:35 Miscellaneous Information 1 ea NOTE XX ; Start 09/17/18 at 13:00 Glucose (Glutose) 15 gm Q15M PRN PO DECREASED GLUCOSE; Start 09/17/18 at 13:00 Glucose (Glutose) 22.5 gm Q15M PRN PO DECREASED GLUCOSE; Start 09/17/18 at 13:00 Dextrose (D50w Syringe) 25 ml Q15M PRN IV DECREASED GLUCOSE; Start 09/17/18 at 13:00 Dextrose (D50w Syringe) 50 ml Q15M PRN IV DECREASED GLUCOSE; Start 09/17/18 at 13:00 Glucagon (Glucagen) 1 mg Q15M PRN IM DECREASED GLUCOSE; Start 09/17/18 at 13:00 Glucose (Glutose) 15 gm Q15M PRN BUCCAL DECREASED GLUCOSE; Start 09/17/18 at 13:00 Methadone HCl (Methadone Liq (Ped)) 2 mg Q4 PO Last administered on 09/18/18at 12:14; Admin Dose 2 MG; Start 09/17/18 at 21:00 Gemfibrozil (Lopid) 600 mg BID PO Last administered on 09/18/18at 08:21; Admin Dose 600 MG; Start 09/17/18 at 21:00 Fish Oil (Fish Oil) 2,000 mg BID PO Last administered on 09/18/18at 08:20; Admin Dose 2,000 MG; Start 09/17/18 at 21:00 Levalbuterol (Xopenex Neb) 1.25 mg Q3H RESP THERAPY PRN HHN SHORTNESS OF BREATH Last administered on 09/18/18at 03:12; Admin Dose 1.25 MG; Start 09/18/18 at 03:00 Ipratropium [place] (Atrovent 0.02% (Neb)) 0.5 mg Q3H RESP THERAPY PRN HHN SHORTNESS OF BREATH Last administered on 09/18/18at 03:12; Admin Dose 0.5 MG; Start 09/18/18 at 03:00 Meropenem/Sodium Chloride 50 ml @ 100 mls/hr Q8 IVPB ; Start 09/18/18 at 14:00 JADYN DOWLING NP Sep 18, 2018 12:33
[2018-09-18] MEDS: MEROPENEM 1 GM/50ML(PMX) 50 ML IVPB SCH ×2 (14:18→21:05)
[2018-09-18] MEDS: INSULIN GLARGINE [LANTus] (100 UNITS/ML) SYG SC SCH (20:00)
[2018-09-18] MEDS: MUPIROCIN 2% 22 GM OINT TOP SCH (20:44)
[2018-09-19] VITALS (25 sets, daily range): BP systolic 122–179; BP diastolic 65–103; PULSE 106–121; RESP 8–23
[2018-09-19] MEDS ORDERED: DIPHENHYDRAMINE 50 MG INJ IV ONE
[2018-09-19] MEDS ORDERED: GUAIFENESIN 20 MG/ML 5ML CUP PO PRN
[2018-09-19] MEDS: INSULIN ASPART [NOVOLOG] 3 ML PEN SC SCH ×3 (01:00→09:00)
[2018-09-19] MEDS: METHADONE (1 MG/1 ML PO SYG) PO SCH ×6 (01:00→20:42)
[2018-09-19] MEDS: HYDROmorphONE 1 MG/ML SYG IV PRN ×4 (02:30→22:30)
[2018-09-19] MEDS: SOD CHLORIDE 0.9% 1,000 ML IV SCH ×2 (04:53→15:06)
[2018-09-19] MEDS: MEROPENEM 1 GM/50ML(PMX) 50 ML IVPB SCH (06:50)
--- NOTE | 2018-09-19 08:21 | PN ---
DATE: 09/19/2018 SUBJECTIVE: The patient is stable. No events overnight. No fevers, chills, nausea or vomiting. OBJECTIVE: VITAL SIGNS: Blood pressure is 162/80, respirations 14, pulse 106, temperature 99.3. HEENT: Head is normocephalic. NECK: Supple. HEART: Regular rate. LUNGS: Show diminished breath sounds at the base. ABDOMEN: Soft, nontender to palpation without rebound or guarding. EXTREMITIES: Negative for clubbing, cyanosis, no edema. DERMATOLOGIC: No rashes. MUSCULOSKELETAL: No joint effusion. NEUROLOGIC: No change in exam. MEDICATIONS: Reviewed. LABORATORY DATA: Reviewed. IMAGING STUDIES: Reviewed. ASSESSMENT AND PLAN: 1. Nonoliguric acute kidney injury with previously normal baseline creatinine. Etiology of acute ki dney injury is secondary to acute tubular necrosis due to severe pancreatitis. The patient's urinaly sis showed evidence of granular casts consistent with tubular injury. The patient's renal function h as been improving. The patient appears to be in recovery phase of acute tubular necrosis. We will c ontinue current treatment plan. Continue supportive care, renally dose all medications, continue IV hydration and monitor closely. 2. Severe hyperkalemia, etiology is secondary to acute kidney injury. The patient's potassium level s have improved. Continue to monitor. 3. Metabolic acidosis secondary to acute kidney injury, improving. Continue to monitor. No need fo r bicarbonate therapy. 4. Hypernatremia secondary to acute kidney injury, resolved. 5. Mineral bone disorder. The patient is hypocalcemic secondary to acute pancreatitis. The patient 's calcium levels have slowly been improving. Continue to monitor. 6. Anemia. Continue to monitor hemoglobin and hematocrit levels. 7. Lactic acidosis secondary to acute pancreatitis. Continue to monitor. 8. Acute severe pancreatitis, etiology is secondary to hypertriglyceridemia, questionable ETOH abuse . The patient is clinically improving. Continue IV hydration. Continue pain control. 9. Hypertriglyceridemia. Continue to monitor. 10. Diabetes. Continue current insulin regimen. 11. History of ETOH abuse. Continue to monitor. Monitor for signs of withdrawal. Dictated By: OTONIEL NASCIMENTO DO NR/NTS Conf#: [id number] DID#: [id number] CC: OTONIEL NASCIMENTO DO; SEBAS HER; BRANDY MARTINEZ MD;*EndCC*
[2018-09-19] MEDS: FISH OIL 1,000 MG CAP PO SCH ×2 (08:50→20:43)
[2018-09-19] MEDS: GEMFIBROZIL 600 MG TAB PO SCH ×2 (08:51→20:43)
[2018-09-19] MEDS: FAMOTIDINE 20 MG INJ IV SCH ×2 (08:51→20:42)
[2018-09-19] MEDS: MUPIROCIN 2% 22 GM OINT TOP SCH ×2 (08:51→20:45)
--- NOTE | 2018-09-19 09:11 | PN ---
Date/Time of Note Date/Time of Note DATE: 09/19/18 TIME: 09:11 Assessment/Plan VTE Prophylaxis Risk score (from Nsg)>0 risk: 3 SCD applied (from Nsg): Yes Pharmacological prophylaxis: NA/contraindicated Pharm contraindication: low risk/ambulating Lines/Catheters IV Catheter Type (from Nrsg): Peripheral IV Urinary Cath still in place: No Assessment/Plan Hospital Course SUBJECTIVE: Denies any abdominal pain. OBJECTIVE: Physical Exam General: Obese, 48 year-old male lying in bed in no apparent distress. HEENT: Normocephalic, atraumatic. Eyes: Anicteric sclerae, conjunctivae clear. ENT: Nasal septum midline, oral mucosa is dry. Neck supple. Respiratory: Bilaterally clear breath sounds. No use of accessory muscles of respiration. No adventitious breath sounds. Cardiovascular: S1, S2 heard. No murmurs or gallops. Abdomen: Soft, nontender, and nondistended. Bowel sounds positive in all 4 quadrants. Genitourinary: Deferred. Extremities: No cyanosis, no clubbing, no edema. Peripheral pulses palpable. Neurologic: Cranial nerves II through XII grossly intact. The patient is awake, alert, and oriented. Skin: Normal skin turgor. No skin rashes. Labs & Vitals per chart ASSESSMENT & PLAN 48-year-old male with comorbidities including hyperlipidemia, hypertension, diabetes mellitus, and obesity, who went to the [facility] emergency room with chief complaint of abdominal pain, was found to have evidence of underlying acute pancreatitis and acute kidney injury, who was transferred to [facility] for further evaluation because of insurance reasons. 1. Severe acute pancreatitis. Most probably secondary to underlying hypertriglyceridemia. Continue IV hydration. Currently n.p.o. 2. Acute nonoliguric kidney injury. Most probably secondary to underlying ATN. Being followed by nephrology. Continue IV hydration. Use nephrotoxic drugs with caution. 3. Hypocalcemia. Most probably secondary to underlying pancreatitis. Replete as necessary. 4. Dyslipidemia with hypertriglyceridemia. S/P insulin gtt. Continue gemfibrozil and fish oil. 5. DM type 2. Uncontrolled. S/P insulin gtt. Continue SSI. 6. Hypertension. Not on any antihypertensives at home. Start appropriate antihypertensives. 7. Alcoholism. Last drink 3 weeks ago. Verbalized desire to remain sober. 8. Obesity. BMI 32 kg/m. Status post dietary consult. Reinforced weight reduction. 9. MRSA colonization of the nares. Continue Bactroban. 10. Hyperbilirubinemia. Etiology unclear. Possibly from underlying acute pancreatitis. Avoid hepatotoxic medications. 11. Normocytic anemia. Etiology unclear. Monitor H&H closely. Obtain iron, folate, and vitamin B12 levels. 12. Medication non-compliance. Counseling. 13. Fluids, electrolytes, and nutrition. Continue IV hydration. Start clear liquids. 14. DVT prophylaxis. Bilateral SCDs. 15. Plan. Continue IV hydration. Start clear liquids. DC antibiotics. Transfer the patient out of the intensive care unit. The patient was seen in collaboration with Dr. Ko. Critical care time: 35 minutes. Result Diagram: 09/19/18 0436 09/19/18 0436 Results 24hrs Laboratory Tests Test 09/18/18 11:37 09/18/18 14:12 09/18/18 17:28 09/18/18 20:40 Bedside Glucose 148 101 106 White Blood Count 4.7 L Red Blood Count 2.93 L Hemoglobin 8.4 L Hematocrit 24.8 L Mean Corpuscular 84.6 Volume Mean Corpuscular 28.7 L Hemoglobin Mean Corpuscular 33.9 Hemoglobin Concent Red Cell 13.3 Distribution Width Platelet Count 143 Mean Platelet Volume 8.9 Immature 0.800 H Granulocytes % Neutrophils % 73.6 Lymphocytes % 14.8 L Monocytes % 9.1 Eosinophils % 1.3 Basophils % 0.4 Nucleated Red Blood 0.0 Cells % Immature 0.040 H Granulocytes # Neutrophils # 3.5 Lymphocytes # 0.7 L Monocytes # 0.4 Eosinophils # 0.1 Basophils # 0.0 Nucleated Red Blood 0.0 Cells # Sodium Level 135 Potassium Level 4.3 Chloride Level 104 Carbon Dioxide Level 21 Anion Gap 10 Blood Urea Nitrogen 35 H Creatinine 2.40 H Est Glomerular 29 L Filtrat Rate mL/min Glucose Level 95 # Calcium Level 6.2 L Total Bilirubin 1.9 H Direct Bilirubin 0.80 #H Indirect Bilirubin 1.1 Aspartate Amino 86 H Transf (AST/SGOT) Alanine 13 Aminotransferase (AL T/SGPT) Alkaline Phosphatase 34 L Total Protein 6.5 Albumin 3.4 Globulin 3.10 Albumin/Globulin 1.09 Ratio Test 09/19/18 01:50 09/19/18 04:36 09/19/18 04:56 09/19/18 08:57 Bedside Glucose 112 120 126 White Blood Count 4.6 L Red Blood Count 2.75 L Hemoglobin 7.8 L Hematocrit 23.6 L Mean Corpuscular 85.8 Volume Mean Corpuscular 28.4 L Hemoglobin Mean Corpuscular 33.1 Hemoglobin Concent Red Cell 13.6 Distribution Width Platelet Count 144 Mean Platelet Volume 9.2 Immature 2.000 H Granulocytes % Neutrophils % 70.8 Lymphocytes % 13.3 L Monocytes % 11.4 H Eosinophils % 1.8 Basophils % 0.7 Nucleated Red Blood 0.0 Cells % Immature 0.090 H Granulocytes # Neutrophils # 3.2 Lymphocytes # 0.6 L Monocytes # 0.5 Eosinophils # 0.1 Basophils # 0.0 Nucleated Red Blood 0.0 Cells # Sodium Level 135 Potassium Level 4.0 Chloride Level 103 Carbon Dioxide Level 21 Anion Gap 11 Blood Urea Nitrogen 25 H Creatinine 1.94 H Est Glomerular 37 L Filtrat Rate mL/min Glucose Level 119 Calcium Level 6.9 L Phosphorus Level 2.8 Magnesium Level 1.8 Total Bilirubin 3.0 H Direct Bilirubin 1.80 #H Indirect Bilirubin 1.2 H Aspartate Amino 81 H Transf (AST/SGOT) Alanine 12 L Aminotransferase (AL T/SGPT) Alkaline Phosphatase 40 L Total Protein 6.6 Albumin 3.5 Globulin 3.10 Albumin/Globulin 1.12 Ratio Lipase 982 H Exam/Review of Systems Exam Vitals Vital Signs Date Temp Pulse Resp B/P (MAP) Pulse Ox O2 O2 Flow FiO2 Time Delivery Rate 09/19/18 106 14 162/80 90 06:00 (107) 09/19/18 99.3 05:00 09/19/18 Room Air 00:00 09/18/18 2.0 20:10 Intake and Output 09/18/18 09/18/18 09/19/18 1515:00 23:00 07:00 IntakeIntake Total 1820 ml 450 ml 300 ml OutputOutput Total 1975 ml 425 ml 1650 ml BalanceBalance -155 ml 25 ml -1350 ml Results Results 24hrs Laboratory Tests Test 09/18/18 11:37 09/18/18 14:12 09/18/18 17:28 09/18/18 20:40 Bedside Glucose 148 101 106 White Blood Count 4.7 L Red Blood Count 2.93 L Hemoglobin 8.4 L Hematocrit 24.8 L Mean Corpuscular 84.6 Volume Mean Corpuscular 28.7 L Hemoglobin Mean Corpuscular 33.9 Hemoglobin Concent Red Cell 13.3 Distribution Width Platelet Count 143 Mean Platelet Volume 8.9 Immature 0.800 H Granulocytes % Neutrophils % 73.6 Lymphocytes % 14.8 L Monocytes % 9.1 Eosinophils % 1.3 Basophils % 0.4 Nucleated Red Blood 0.0 Cells % Immature 0.040 H Granulocytes # Neutrophils # 3.5 Lymphocytes # 0.7 L Monocytes # 0.4 Eosinophils # 0.1 Basophils # 0.0 Nucleated Red Blood 0.0 Cells # Sodium Level 135 Potassium Level 4.3 Chloride Level 104 Carbon Dioxide Level 21 Anion Gap 10 Blood Urea Nitrogen 35 H Creatinine 2.40 H Est Glomerular 29 L Filtrat Rate mL/min Glucose Level 95 # Calcium Level 6.2 L Total Bilirubin 1.9 H Direct Bilirubin 0.80 #H Indirect Bilirubin 1.1 Aspartate Amino 86 H Transf (AST/SGOT) Alanine 13 Aminotransferase (AL T/SGPT) Alkaline Phosphatase 34 L Total Protein 6.5 Albumin 3.4 Globulin 3.10 Albumin/Globulin 1.09 Ratio Test 09/19/18 01:50 09/19/18 04:36 09/19/18 04:56 09/19/18 08:57 Bedside Glucose 112 120 126 White Blood Count 4.6 L Red Blood Count 2.75 L Hemoglobin 7.8 L Hematocrit 23.6 L Mean Corpuscular 85.8 Volume Mean Corpuscular 28.4 L Hemoglobin Mean Corpuscular 33.1 Hemoglobin Concent Red Cell 13.6 Distribution Width Platelet Count 144 Mean Platelet Volume 9.2 Immature 2.000 H Granulocytes % Neutrophils % 70.8 Lymphocytes % 13.3 L Monocytes % 11.4 H Eosinophils % 1.8 Basophils % 0.7 Nucleated Red Blood 0.0 Cells % Immature 0.090 H Granulocytes # Neutrophils # 3.2 Lymphocytes # 0.6 L Monocytes # 0.5 Eosinophils # 0.1 Basophils # 0.0 Nucleated Red Blood 0.0 Cells # Sodium Level 135 Potassium Level 4.0 Chloride Level 103 Carbon Dioxide Level 21 Anion Gap 11 Blood Urea Nitrogen 25 H Creatinine 1.94 H Est Glomerular 37 L Filtrat Rate mL/min Glucose Level 119 Calcium Level 6.9 L Phosphorus Level 2.8 Magnesium Level 1.8 Total Bilirubin 3.0 H Direct Bilirubin 1.80 #H Indirect Bilirubin 1.2 H Aspartate Amino 81 H Transf (AST/SGOT) Alanine 12 L Aminotransferase (AL T/SGPT) Alkaline Phosphatase 40 L Total Protein 6.6 Albumin 3.5 Globulin 3.10 Albumin/Globulin 1.12 Ratio Lipase 982 H Medications Medication Current Medications IV Flush (NS 3 ml) 3 ml PER PROTOCOL IV ; Start 09/15/18 at 16:30 Ondansetron HCl (Zofran Inj) 4 mg Q6H PRN IV NAUSEA/VOMITING Last administered on 09/17/18at 17:41; Admin Dose 4 MG; Start 09/15/18 at 16:30 Acetaminophen (Tylenol Tab) 650 mg Q6H PRN PO .PAIN 1-3 OR TEMP; Start 09/15/18 at 16:30 Acetaminophen (Tylenol Supp) 650 mg Q6H PRN MA .PAIN 1-3 OR TEMP Last administered on 09/15/18at 20:06; Admin Dose 650 MG; Start 09/15/18 at 16:30 Famotidine (Pepcid Iv) 20 mg Q12 IV Last administered on 09/19/18at 08:51; Admin Dose 20 MG; Start 09/15/18 at 21:00 Hydromorphone HCl (Dilaudid) 2 mg Q3H PRN IV SEVERE PAIN LEVEL 7-10 Last administered on 09/19/18at 02:30; Admin Dose 2 MG; Start 09/16/18 at 18:00 Sodium Chloride 1,000 ml @ 100 mls/hr Q10H IV Last administered on 09/19/18at 04:53; Admin Dose 100 MLS/HR; Start 09/17/18 at 02:00 Insulin Glargine (Lantus) 24 units DAILY@2000 SC Last administered on 09/17/18at 21:36; Admin Dose 24 UNITS; Start 09/17/18 at 20:00 Miscellaneous Information 1 ea NOTE XX ; Start 09/17/18 at 13:00 Glucose (Glutose) 15 gm Q15M PRN PO DECREASED GLUCOSE; Start 09/17/18 at 13:00 Glucose (Glutose) 22.5 gm Q15M PRN PO DECREASED GLUCOSE; Start 09/17/18 at 13:00 Dextrose (D50w Syringe) 25 ml Q15M PRN IV DECREASED GLUCOSE; Start 09/17/18 at 13:00 Dextrose (D50w Syringe) 50 ml Q15M PRN IV DECREASED GLUCOSE; Start 09/17/18 at 13:00 Glucagon (Glucagen) 1 mg Q15M PRN IM DECREASED GLUCOSE; Start 09/17/18 at 13:00 Glucose (Glutose) 15 gm Q15M PRN BUCCAL DECREASED GLUCOSE; Start 09/17/18 at 13:00 Methadone HCl (Methadone Liq (Ped)) 2 mg Q4 PO Last administered on 09/19/18 08:51; Admin Dose 2 MG; Start 09/17/18 at 21:00 Gemfibrozil (Lopid) 600 mg BID PO Last administered on 09/19/18 08:51; Admin Dose 600 MG; Start 09/17/18 at 21:00 Fish Oil (Fish Oil) 2,000 mg BID PO Last administered on 09/19/18 08:50; Admin Dose 2,000 MG; Start 09/17/18 at 21:00 Levalbuterol (Xopenex Neb) 1.25 mg Q3H RESP THERAPY PRN HHN SHORTNESS OF BREATH Last administered on 09/18/18 03:12; Admin Dose 1.25 MG; Start 09/18/18 at 03:00 Ipratropium [place] (Atrovent 0.02% (Neb)) 0.5 mg Q3H RESP THERAPY PRN HHN SHORTNESS OF BREATH Last administered on 09/18/18 03:12; Admin Dose 0.5 MG; Start 09/18/18 at 03:00 Meropenem/Sodium Chloride 50 ml @ 100 mls/hr Q8 IVPB Last administered on 09/19/18at 06:50; Admin Dose 100 MLS/HR; Start 09/18/18 at 14:00 Mupirocin (Bactroban) 1 applic BID TOP Last administered on 09/18/18at 20:44; Admin Dose 1 APPLIC; Start 09/18/18 at 21:00 Insulin Aspart (Novolog Insulin Pen) NOVOLOG *MILD* ALGORI... Q4 SC ; Start 09/18/18 at 17:00 Guaifenesin (Robitussin Liquid Cup) 100 mg Q4H PRN PO COUGH; Start 09/19/18 at 00:00; Stop 09/20/18 at 00:00 KADIE ADAME NP Sep 19, 2018 09:11
[2018-09-19] MEDS: Insulin NOVOLOG SS MILD Algorithm (SS with meals and bedtime) SC SCH ×4 (11:00→20:44)
[2018-09-19] MEDS ORDERED: INSULIN ASPART [NOVOLOG] 3 ML PEN SC SCH (11:00)
--- NOTE | 2018-09-19 13:46 | CONS ---
Assessment/Plan Assessment/Plan Problems: (1) Diabetes mellitus type 2 in obese Status: Chronic Comment: Excellent glycemic control. Cont. current dose of lantus. Resume Novolog 10 units qac when diet is advanced. (2) Mixed hyperlipidemia Status: Chronic Comment: Cont. low-carb diet, fenofibrate, lovaza. Consultation Date/Type/Reason Admit Date/Time Sep 15, 2018 at 14:37 Initial Consult Date 09/17/18 Type of Consult Endocrinology Reason for Consultation T2DM management Requesting Provider: JADYN DOWLING NP Date/Time of Note DATE: 09/19/18 TIME: 13:43 24 HR Interval Summary Constitutional: no complaints, improved Detailed Summary Respiratory: no complaints Cardiovascular: no complaints Gastrointestinal: pain (minimal BLQ; epigastric pains resolved; tolerating jell-o) Genitourinary: no complaints Musculoskeletal: no complaints Neurologic: no complaints Exam/Review of Systems Exam Vitals VS - Last 72 Hours, by Label Date Temp Pulse Resp B/P (MAP) Pulse Ox O2 O2 Flow FiO2 Time Delivery Rate 09/19/18 113 12:00 09/19/18 179/89 100 Room Air 10:00 (119) 09/19/18 109 18 150/88 95 Room Air 09:00 (108) 09/19/18 100.5 111 12 142/103 92 Room Air 08:00 (116) 09/19/18 109 08:00 09/19/18 117 23 95 07:00 09/19/18 106 14 162/80 90 06:00 (107) 09/19/18 106 15 93 05:30 09/19/18 99.3 107 14 147/86 91 05:00 (106) 09/19/18 109 15 95 04:30 09/19/18 110 8 91 04:00 09/19/18 112 04:00 09/19/18 115 9 90 03:30 09/19/18 114 9 91 03:00 09/19/18 115 21 93 02:30 09/19/18 117 21 133/97 94 02:00 (109) 09/19/18 112 12 92 01:30 09/19/18 112 10 91 00:30 09/19/18 114 00:00 09/19/18 99.2 114 16 122/99 90 Room Air 00:00 (107) 09/18/18 115 11 91 23:30 09/18/18 118 11 139/84 91 23:00 (102) 09/18/18 117 22 93 22:30 09/18/18 115 132/88 90 22:00 (103) 09/18/18 122 17 92 21:30 09/18/18 114 24 92 21:00 09/18/18 120 29 90 20:30 09/18/18 Nasal 2.0 20:10 Cannula 09/18/18 116 20:00 09/18/18 99.3 116 26 146/71 92 Room Air 20:00 (96) 09/18/18 117 21 92 19:30 09/18/18 118 20 169/105 93 Room Air 19:00 (126) 09/18/18 118 20 169/105 93 19:00 (126) 09/18/18 115 20 92 18:30 09/18/18 114 19 149/91 94 18:00 (110) 09/18/18 114 19 149/91 94 Room Air 18:00 (110) 09/18/18 110 11 135/80 91 Room Air 17:00 (98) 09/18/18 113 16:01 09/18/18 98.8 16 132/72 95 Room Air 16:00 (92) 09/18/18 99 3.0 15:38 09/18/18 109 21 129/93 97 Room Air 15:00 (105) 09/18/18 115 19 137/94 95 Room Air 14:00 (108) 09/18/18 110 16 135/93 95 Nasal 2.0 13:00 (107) Cannula 09/18/18 108 12:01 09/18/18 98.0 109 27 108/73 Nasal 2.0 12:00 (85) Cannula 09/18/18 106 9 140/77 95 Nasal 2.0 11:00 (98) Cannula 09/18/18 105 12 134/84 94 Nasal 2.0 10:00 (101) Cannula 09/18/18 112 27 145/86 98 Nasal 2.0 09:00 (105) Cannula 09/18/18 114 08:01 09/18/18 Nasal 2.0 08:00 Cannula 09/18/18 98.8 130 27 120/90 92 Nasal 2.0 08:00 (100) Cannula 09/18/18 110 15 144/82 94 Nasal 2.0 07:00 (102) Cannula 09/18/18 110 14 131/89 92 Nasal 06:00 (103) Cannula 09/18/18 111 23 93 Nasal 05:00 Cannula 09/18/18 114 04:00 09/18/18 98.4 116 13 95 Nasal 04:00 Cannula 09/18/18 94 4.0 03:13 09/18/18 101 20 97 Nasal 4.0 03:13 Cannula 09/18/18 112 119/95 97 Nasal 03:00 (103) Cannula 09/18/18 110 22 152/102 99 Nasal 02:00 (119) Cannula 09/18/18 112 16 144/98 96 Nasal 01:00 (113) Cannula 09/18/18 119 00:00 09/18/18 98.2 118 16 149/90 95 Nasal 00:00 (109) Cannula 09/17/18 117 12 89 Nasal 23:00 Cannula 09/17/18 114 27 96 Nasal 22:00 Cannula 09/17/18 98.4 113 25 97 Nasal 2.0 20:00 Cannula 09/17/18 116 20:00 09/17/18 Nasal 2.0 20:00 Cannula 09/17/18 115 21 150/94 97 Nasal 2.0 19:00 (112) Cannula 09/17/18 117 27 152/95 98 Nasal 2.0 18:00 (114) Cannula 09/17/18 117 26 150/97 99 Nasal 2.0 17:00 (114) Cannula 09/17/18 99.2 116 25 156/98 98 Nasal 2.0 16:00 (117) Cannula 09/17/18 117 16:00 09/17/18 99.7 121 29 146/92 92 Nasal 2.0 15:00 (110) Cannula 09/17/18 117 21 127/60 91 Nasal 2.0 14:00 (82) Cannula 09/17/18 112 26 135/77 95 Nasal 2.0 13:00 (96) Cannula 09/17/18 109 12:00 09/17/18 98.2 109 30 149/108 96 Nasal 2.0 12:00 (122) Cannula 09/17/18 110 24 147/92 96 Nasal 2.0 11:00 (110) Cannula 09/17/18 106 22 146/77 92 Room Air 10:00 (100) 09/17/18 105 26 132/88 94 Room Air 09:00 (103) 09/17/18 109 08:00 09/17/18 Nasal 2.0 08:00 Cannula 09/17/18 98.5 109 25 126/87 94 Room Air 08:00 (100) 09/17/18 114 21 124/86 93 Room Air 07:00 (99) 09/17/18 112 25 136/84 92 Room Air 06:00 (101) 09/17/18 113 24 93 Room Air 05:00 09/17/18 112 04:00 09/17/18 98.2 112 27 133/92 96 Room Air 04:00 (106) 09/17/18 112 24 138/87 96 Room Air 03:00 (104) 09/17/18 114 19 126/82 95 Room Air 02:00 (97) 09/17/18 115 25 95 Room Air 01:00 09/17/18 112 00:00 09/17/18 98.5 113 32 123/71 94 Room Air 00:00 (88) 09/16/18 120 32 146/90 97 Room Air 23:00 (108) 09/16/18 115 22 96 Room Air 22:00 09/16/18 115 20 133/95 94 Room Air 21:00 (108) 09/16/18 117 20:00 09/16/18 98.5 116 25 130/100 93 Room Air 20:00 (110) 09/16/18 113 23 122/87 95 Room Air 19:00 (99) 09/16/18 109 18 92/77 (82) 97 Room Air 18:00 09/16/18 108 22 134/77 96 Room Air 17:00 (96) 09/16/18 99.1 112 21 120/49 95 Room Air 16:00 (72) 09/16/18 110 16:00 09/16/18 108 23 137/102 95 Room Air 15:00 (114) 09/16/18 113 16 105/77 94 Room Air 14:00 (86) Vital Signs Date Temp Pulse Resp B/P (MAP) Pulse Ox O2 O2 Flow FiO2 Time Delivery Rate 09/19/18 113 12:00 09/19/18 179/89 100 Room Air 10:00 (119) 09/19/18 18 09:00 09/19/18 100.5 08:00 09/18/18 2.0 20:10 Intake and Output 09/18/18 09/18/18 09/19/18 1515:00 23:00 07:00 IntakeIntake Total 1820 ml 450 ml 400 ml OutputOutput Total 1975 ml 425 ml 1650 ml BalanceBalance -155 ml 25 ml -1250 ml Constitutional: alert, oriented, obese Psych: no complaints, nl mood/affect Respiratory: clear to auscultation, normal air movement Cardiovascular: regular rate and rhythm, nl pulses; No edema, No murmurs/extra sounds, No rub Gastrointestinal: soft, nl liver, spleen, non-tender, bowel sounds; No mass, No rebound or guarding Musculoskeletal: nl extremities to inspection Extremities: normal pulses; No cyanosis, No clubbing, No edema Neurological: ROOM CLERK II-XII intact, nl mental status, nl speech, nl strength Additional Comments Bedside Glucose - 72 Hours Test 09/16/18 17:39 09/16/18 20:35 09/16/18 21:55 09/16/18 23:18 Bedside 198 120 126 141 Glucose mg/dL (70-220) mg/dL (70-220) mg/dL (70-220) mg/dL (70-220) Test 09/17/18 01:08 09/17/18 02:09 09/17/18 03:01 09/17/18 05:02 Bedside 175 150 115 87 Glucose mg/dL (70-220) mg/dL (70-220) mg/dL (70-220) mg/dL (70-220) Test 09/17/18 06:33 09/17/18 08:01 09/17/18 09:05 09/17/18 10:58 Bedside 117 136 142 166 Glucose mg/dL (70-220) mg/dL (70-220) mg/dL (70-220) mg/dL (70-220) Test 09/17/18 13:23 09/17/18 17:45 09/17/18 21:33 09/17/18 23:49 Bedside 124 152 144 135 Glucose mg/dL (70-220) mg/dL (70-220) mg/dL (70-220) mg/dL (70-220) Test 09/18/18 00:34 09/18/18 05:04 09/18/18 07:45 09/18/18 11:37 Bedside 135 146 168 148 Glucose mg/dL (70-220) mg/dL (70-220) mg/dL (70-220) mg/dL (70-220) Test 09/18/18 17:28 09/18/18 20:40 09/19/18 01:50 09/19/18 04:56 Bedside 101 106 112 120 Glucose mg/dL (70-220) mg/dL (70-220) mg/dL (70-220) mg/dL (70-220) Test 09/19/18 08:57 Bedside 126 Glucose mg/dL (70-220) Results Result Diagram: 09/19/18 0436 09/19/18 0436 Results 24hrs Laboratory Tests Test 09/18/18 14:12 09/18/18 17:28 09/18/18 20:40 09/19/18 01:50 White Blood Count 4.7 L Red Blood Count 2.93 L Hemoglobin 8.4 L Hematocrit 24.8 L Mean Corpuscular 84.6 Volume Mean Corpuscular 28.7 L Hemoglobin Mean Corpuscular 33.9 Hemoglobin Concent Red Cell 13.3 Distribution Width Platelet Count 143 Mean Platelet Volume 8.9 Immature 0.800 H Granulocytes % Neutrophils % 73.6 Lymphocytes % 14.8 L Monocytes % 9.1 Eosinophils % 1.3 Basophils % 0.4 Nucleated Red Blood 0.0 Cells % Immature 0.040 H Granulocytes # Neutrophils # 3.5 Lymphocytes # 0.7 L Monocytes # 0.4 Eosinophils # 0.1 Basophils # 0.0 Nucleated Red Blood 0.0 Cells # Sodium Level 135 Potassium Level 4.3 Chloride Level 104 Carbon Dioxide Level 21 Anion Gap 10 Blood Urea Nitrogen 35 H Creatinine 2.40 H Est Glomerular 29 L Filtrat Rate mL/min Glucose Level 95 # Calcium Level 6.2 L Total Bilirubin 1.9 H Direct Bilirubin 0.80 #H Indirect Bilirubin 1.1 Aspartate Amino 86 H Transf (AST/SGOT) Alanine 13 Aminotransferase (AL T/SGPT) Alkaline Phosphatase 34 L Total Protein 6.5 Albumin 3.4 Globulin 3.10 Albumin/Globulin 1.09 Ratio Bedside Glucose 101 106 112 Test 09/19/18 04:36 09/19/18 04:56 09/19/18 08:57 White Blood Count 4.6 L Red Blood Count 2.75 L Hemoglobin 7.8 L Hematocrit 23.6 L Mean Corpuscular 85.8 Volume Mean Corpuscular 28.4 L Hemoglobin Mean Corpuscular 33.1 Hemoglobin Concent Red Cell 13.6 Distribution Width Platelet Count 144 Mean Platelet Volume 9.2 Immature 2.000 H Granulocytes % Neutrophils % 70.8 Lymphocytes % 13.3 L Monocytes % 11.4 H Eosinophils % 1.8 Basophils % 0.7 Nucleated Red Blood 0.0 Cells % Immature 0.090 H Granulocytes # Neutrophils # 3.2 Lymphocytes # 0.6 L Monocytes # 0.5 Eosinophils # 0.1 Basophils # 0.0 Nucleated Red Blood 0.0 Cells # Sodium Level 135 Potassium Level 4.0 Chloride Level 103 Carbon Dioxide Level 21 Anion Gap 11 Blood Urea Nitrogen 25 H Creatinine 1.94 H Est Glomerular 37 L Filtrat Rate mL/min Glucose Level 119 Calcium Level 6.9 L Phosphorus Level 2.8 Magnesium Level 1.8 Iron Level 20 L Total Iron Binding 233 L Capacity Percent Iron 9 L Saturation Ferritin 1700.0 H Total Bilirubin 3.0 H Direct Bilirubin 1.80 #H Indirect Bilirubin 1.2 H Aspartate Amino 81 H Transf (AST/SGOT) Alanine 12 L Aminotransferase (AL T/SGPT) Alkaline Phosphatase 40 L Total Protein 6.6 Albumin 3.5 Globulin 3.10 Albumin/Globulin 1.12 Ratio Lipase 982 H Vitamin B12 Level 962 H Folate 9.0 Bedside Glucose 120 126 Medications Medication Current Medications IV Flush (NS 3 ml) 3 ml PER PROTOCOL IV ; Start 09/15/18 at 16:30 Ondansetron HCl (Zofran Inj) 4 mg Q6H PRN IV NAUSEA/VOMITING Last administered on 09/17/18at 17:41; Admin Dose 4 MG; Start 09/15/18 at 16:30 Acetaminophen (Tylenol Tab) 650 mg Q6H PRN PO .PAIN 1-3 OR TEMP; Start 09/15/18 at 16:30 Acetaminophen (Tylenol Supp) 650 mg Q6H PRN OR .PAIN 1-3 OR TEMP Last administered on 09/15/18at 20:06; Admin Dose 650 MG; Start 09/15/18 at 16:30 Famotidine (Pepcid Iv) 20 mg Q12 IV Last administered on 09/19/18at 08:51; Admin Dose 20 MG; Start 09/15/18 at 21:00 Hydromorphone HCl (Dilaudid) 2 mg Q3H PRN IV SEVERE PAIN LEVEL 7-10 Last administered on 09/19/18 12:39; Admin Dose 2 MG; Start 09/16/18 at 18:00 Sodium Chloride 1,000 ml @ 100 mls/hr Q10H IV Last administered on 09/19/18 04:53; Admin Dose 100 MLS/HR; Start 09/17/18 at 02:00 Insulin Glargine (Lantus) 24 units DAILY@2000 SC Last administered on 09/17/18 21:36; Admin Dose 24 UNITS; Start 09/17/18 at 20:00 Miscellaneous Information 1 ea NOTE XX ; Start 09/17/18 at 13:00 Glucose (Glutose) 15 gm Q15M PRN PO DECREASED GLUCOSE; Start 09/17/18 at 13:00 Glucose (Glutose) 22.5 gm Q15M PRN PO DECREASED GLUCOSE; Start 09/17/18 at 13:00 Dextrose (D50w Syringe) 25 ml Q15M PRN IV DECREASED GLUCOSE; Start 09/17/18 at 13:00 Dextrose (D50w Syringe) 50 ml Q15M PRN IV DECREASED GLUCOSE; Start 09/17/18 at 13:00 Glucagon (Glucagen) 1 mg Q15M PRN IM DECREASED GLUCOSE; Start 09/17/18 at 13:00 Glucose (Glutose) 15 gm Q15M PRN BUCCAL DECREASED GLUCOSE; Start 09/17/18 at 13:00 Methadone HCl (Methadone Liq (Ped)) 2 mg Q4 PO Last administered on 09/19/18 08:51; Admin Dose 2 MG; Start 09/17/18 at 21:00 Gemfibrozil (Lopid) 600 mg BID PO Last administered on 09/19/18 08:51; Admin Dose 600 MG; Start 09/17/18 at 21:00 Fish Oil (Fish Oil) 2,000 mg BID PO Last administered on 09/19/18 08:50; Admin Dose 2,000 MG; Start 09/17/18 at 21:00 Levalbuterol (Xopenex Neb) 1.25 mg Q3H RESP THERAPY PRN HHN SHORTNESS OF BREATH Last administered on 09/18/18 03:12; Admin Dose 1.25 MG; Start 09/18/18 at 03 :00 Ipratropium [place] (Atrovent 0.02% (Neb)) 0.5 mg Q3H RESP THERAPY PRN HHN SHORTNESS OF BREATH Last administered on 09/18/18at 03:12; Admin Dose 0.5 MG; Start 09/18/18 at 03:00 Mupirocin (Bactroban) 1 applic BID TOP Last administered on 09/19/18at 08:51; Admin Dose 1 APPLIC; Start 09/18/18 at 21:00 Guaifenesin (Robitussin Liquid Cup) 100 mg Q4H PRN PO COUGH; Start 09/19/18 at 00:00; Stop 09/20/18 at 00:00 Amlodipine Besylate (Norvasc) 2.5 mg DAILY PO ; Start 09/20/18 at 09:00 Insulin Aspart (Novolog Insulin Pen) (Adult SC Insulin - Mild Algorithm)... AC MEALS AND BEDTIME SC ; Start 09/19/18 at 11:00 IDA GONZALEZ MD Sep 19, 2018 13:46
[2018-09-19] MEDS: SOD FERRIC GLUC COMPLX 125 MG in SOD CHLORIDE 0.9% 100 ML IVPB SCH (16:01)
[2018-09-19] MEDS: INSULIN GLARGINE [LANTus] (100 UNITS/ML) SYG SC SCH (20:58)
[2018-09-20] VITALS (10 sets, daily range): BP systolic 125–153; BP diastolic 76–90; PULSE 100–120; RESP 18–20
[2018-09-20] MEDS: METHADONE (1 MG/1 ML PO SYG) PO SCH ×6 (01:42→21:56)
[2018-09-20] MEDS: HYDROmorphONE 1 MG/ML SYG IV PRN ×4 (01:43→19:51)
[2018-09-20] MEDS: Insulin NOVOLOG SS MILD Algorithm (SS with meals and bedtime) SC SCH ×4 (07:25→22:07)
[2018-09-20] MEDS: AMLODIPINE 2.5 MG TAB PO SCH (08:25)
[2018-09-20] MEDS: GEMFIBROZIL 600 MG TAB PO SCH ×2 (08:25→21:51)
[2018-09-20] MEDS: MUPIROCIN 2% 22 GM OINT TOP SCH ×2 (08:25→21:56)
[2018-09-20] MEDS: FAMOTIDINE 20 MG INJ IV SCH ×2 (08:26→21:51)
[2018-09-20] MEDS: FISH OIL 1,000 MG CAP PO SCH ×2 (08:26→21:51)
[2018-09-20] MEDS: SOD CHLORIDE 0.9% 1,000 ML IV SCH ×3 (08:30→20:00)
--- NOTE | 2018-09-20 08:57 | PN ---
Date/Time of Note Date/Time of Note DATE: 09/20/18 TIME: 08:53 Assessment/Plan VTE Prophylaxis Risk score (from Ns)>0 risk: 1 SCD applied (from Nsg): No SCD contraindicated: low risk/ambulating Pharmacological prophylaxis: NA/contraindicated Pharm contraindication: other Lines/Catheters IV Catheter Type (from Nrs): Peripheral IV Urinary Cath still in place: No Assessment/Plan Hospital Course SUBJECTIVE: Denies any abdominal pain. Tolerating clears. OBJECTIVE: Physical Exam General: Obese, 48 year-old male lying in bed in no apparent distress. HEENT: Normocephalic, atraumatic. Eyes: Anicteric sclerae, conjunctivae clear. ENT: Nasal septum midline, oral mucosa is moist. Neck supple. Respiratory: Bilaterally clear breath sounds. No use of accessory muscles of respiration. No adventitious breath sounds. Cardiovascular: S1, S2 heard. No murmurs or gallops. Abdomen: Soft, nontender, and nondistended. Bowel sounds positive in all 4 quadrants. Genitourinary: Deferred. Extremities: No cyanosis, no clubbing, no edema. Peripheral pulses palpable. Neurologic: Cranial nerves II through XII grossly intact. The patient is awake, alert, and oriented. Skin: Normal skin turgor. No skin rashes. Labs & Vitals per chart ASSESSMENT & PLAN 48-year-old male with comorbidities including hyperlipidemia, hypertension, diabetes mellitus, and obesity, who went to the [facility] emergency room with chief complaint of abdominal pain, was found to have evidence of underlying acute pa ncreatitis and acute kidney injury, who was transferred to [facility] for further evaluation because of insurance reasons. 1. Severe acute pancreatitis. Most probably secondary to underlying hypertriglyceridemia. Continue IV hydration. Started on clears on 09/19/2018. 2. Acute nonoliguric kidney injury. Most probably secondary to underlying ATN. Being followed by nephrology. Continue IV hydration. Use nephrotoxic drugs with caution. 3. Hypocalcemia. Most probably secondary to underlying pancreatitis. Replete as necessary. 4. Dyslipidemia with hypertriglyceridemia. S/P insulin gtt. Continue gemfibrozil and fish oil. 5. DM type 2. Uncontrolled. S/P insulin gtt. Continue SSI. 6. Hypertension. Continue antihypertensives. 7. Alcoholism. Last drink 3 weeks ago. Verbalized desire to remain sober. 8. Obesity. BMI 32 kg/m. Status post dietary consult. Reinforced weight reduction. 9. MRSA colonization of the nares. Continue Bactroban. 10. Hyperbilirubinemia. Etiology unclear. Possibly from underlying acute pancreatitis. Avoid hepatotoxic medications. 11. Normocytic anemia. Etiology could be multifactorial including underlying iron deficiency. Continue iron supplements. 12. Medication non-compliance. Counseling. 13. Fluids, electrolytes, and nutrition. Continue IV hydration. Advance to full liquids. 14. DVT prophylaxis. Bilateral SCDs. 15. Plan. Continue IV hydration. Advance to full liquids. Obtain dewitt cultures because of the fevers over last night. The patient was seen in collaboration with Dr. Ko. Result Diagram: 09/20/1852409/20/18 0526 Results 24hrs Laboratory Tests Test 09/19/18 08:57 09/19/18 17:20 09/19/18 20:18 09/20/18 05:25 Bedside Glucose 126 158 174 White Blood Count 5.4 Red Blood Count 2.68 L Hemoglobin 7.6 L Hematocrit 22.9 L Mean Corpuscular 85.4 Volume Mean Corpuscular 28.4 L Hemoglobin Mean Corpuscular 33.2 Hemoglobin Concent Red Cell 13.8 Distribution Width Platelet Count 169 Mean Platelet Volume 9.2 Immature 2.000 H Granulocytes % Neutrophils % 71.3 Lymphocytes % 13.2 L Monocytes % 10.4 Eosinophils % 2.4 Basophils % 0.7 Nucleated Red Blood 0.0 Cells % Immature 0.110 H Granulocytes # Neutrophils # 3.8 Lymphocytes # 0.7 L Monocytes # 0.6 Eosinophils # 0.1 Basophils # 0.0 Nucleated Red Blood 0.0 Cells # Phosphorus Level 3.1 Magnesium Level 2.0 Lipase 416 H Test 09/20/18 05:26 09/20/18 08:08 Sodium Level 136 Potassium Level 4.3 Chloride Level 102 Carbon Dioxide Level 24 Anion Gap 10 Blood Urea Nitrogen 15 # Creatinine 1.42 H Est Glomerular 53 L Filtrat Rate mL/min Glucose Level 117 Calcium Level 8.2 L Bedside Glucose 131 Exam/Review of Systems Exam Vitals Vital Signs Date Temp Pulse Resp B/P (MAP) Pulse Ox O2 O2 Flow FiO2 Time Delivery Rate 09/20/18 112 08:01 09/20/18 98.2 18 129/78 98 07:15 (95) 09/19/18 Room Air 17:00 09/18/18 2.0 20:10 Intake and Output 09/19/18 09/19/18 09/20/18 1515:00 23:00 07:00 IntakeIntake Total 880 ml 300 ml 1000 ml OutputOutput Total 2350 ml 900 ml 4800 ml BalanceBalance -1470 ml -600 ml -3800 ml Results Results 24hrs Laboratory Tests Test 09/19/18 08:57 09/19/18 17:20 09/19/18 20:18 09/20/18 05:25 Bedside Glucose 126 158 174 White Blood Count 5.4 Red Blood Count 2.68 L Hemoglobin 7.6 L Hematocrit 22.9 L Mean Corpuscular 85.4 Volume Mean Corpuscular 28.4 L Hemoglobin Mean Corpuscular 33.2 Hemoglobin Concent Red Cell 13.8 Distribution Width Platelet Count 169 Mean Platelet Volume 9.2 Immature 2.000 H Granulocytes % Neutrophils % 71.3 Lymphocytes % 13.2 L Monocytes % 10.4 Eosinophils % 2.4 Basophils % 0.7 Nucleated Red Blood 0.0 Cells % Immature 0.110 H Granulocytes # Neutrophils # 3.8 Lymphocytes # 0.7 L Monocytes # 0.6 Eosinophils # 0.1 Basophils # 0.0 Nucleated Red Blood 0.0 Cells # Phosphorus Level 3.1 Magnesium Level 2.0 Lipase 416 H Test 09/20/18 05:26 09/20/18 08:08 Sodium Level 136 Potassium Level 4.3 Chloride Level 102 Carbon Dioxide Level 24 Anion Gap 10 Blood Urea Nitrogen 15 # Creatinine 1.42 H Est Glomerular 53 L Filtrat Rate mL/min Glucose Level 117 Calcium Level 8.2 L Bedside Glucose 131 Medications Medication Current Medications IV Flush (NS 3 ml) 3 ml PER PROTOCOL IV ; Start 09/15/18 at 16:30 Ondansetron HCl (Zofran Inj) 4 mg Q6H PRN IV NAUSEA/VOMITING Last administered on 09/17/18at 17:41; Admin Dose 4 MG; Start 09/15/18 at 16:30 Acetaminophen (Tylenol Tab) 650 mg Q6H PRN PO .PAIN 1-3 OR TEMP; Start 09/15/18 at 16:30 Acetaminophen (Tylenol Supp) 650 mg Q6H PRN [place] .PAIN 1-3 OR TEMP Last administered on 09/15/18 20:06; Admin Dose 650 MG; Start 09/15/18 at 16:30 Famotidine (Pepcid Iv) 20 mg Q12 IV Last administered on 09/20/18 08:26; Admin Dose 20 MG; Start 09/15/18 at 21:00 Hydromorphone HCl (Dilaudid) 2 mg Q3H PRN IV SEVERE PAIN LEVEL 7-10 Last administered on 09/20/18 06:41; Admin Dose 2 MG; Start 09/16/18 at 18:00 Sodium Chloride 1,000 ml @ 100 mls/hr Q10H IV Last administered on 09/20/18 08:30; Admin Dose 100 MLS/HR; Start 09/17/18 at 02:00 Insulin Glargine (Lantus) 24 units DAILY@2000 SC Last administered on 09/19/18 20:58; Admin Dose 24 UNITS; Start 09/17/18 at 20:00 Miscellaneous Information 1 ea NOTE XX ; Start 09/17/18 at 13:00 Glucose (Glutose) 15 gm Q15M PRN PO DECREASED GLUCOSE; Start 09/17/18 at 13:00 Glucose (Glutose) 22.5 gm Q15M PRN PO DECREASED GLUCOSE; Start 09/17/18 at 13:00 Dextrose (D50w Syringe) 25 ml Q15M PRN IV DECREASED GLUCOSE; Start 09/17/18 at 13:00 Dextrose (D50w Syringe) 50 ml Q15M PRN IV DECREASED GLUCOSE; Start 09/17/18 at 13:00 Glucagon (Glucagen) 1 mg Q15M PRN IM DECREASED GLUCOSE; Start 09/17/18 at 13:00 Glucose (Glutose) 15 gm Q15M PRN BUCCAL DECREASED GLUCOSE; Start 09/17/18 at 13:00 Methadone HCl (Methadone Liq (Ped)) 2 mg Q4 PO Last administered on 09/20/18 08:30; Admin Dose 2 MG; Start 09/17/18 at 21:00 Gemfibrozil (Lopid) 600 mg BID PO Last administered on 09/20/18 08:25; Admin Dose 600 MG; Start 09/17/18 at 21:00 Fish Oil (Fish Oil) 2,000 mg BID PO Last administered on 09/20/18 08:26; Admin Dose 2,000 MG; Start 09/17/18 at 21:00 Levalbuterol (Xopenex Neb) 1.25 mg Q3H RESP THERAPY PRN HHN SHORTNESS OF BREATH Last administered on 09/18/18 03:12; Admin Dose 1.25 MG; Start 09/18/18 at 03:00 Ipratropium [place] (Atrovent 0.02% (Neb)) 0.5 mg Q3H RESP THERAPY PRN HHN SHORTNESS OF BREATH Last administered on 09/18/18 03:12; Admin Dose 0.5 MG; Start 09/18/18 at 03:00 Mupirocin (Bactroban) 1 applic BID TOP Last administered on 09/20/18 08:25; Admin Dose 1 APPLIC; Start 09/18/18 at 21:00 Amlodipine Besylate (Norvasc) 2.5 mg DAILY PO Last administered on 09/20/18 08:25; Admin Dose 2.5 MG; Start 09/20/18 at 09:00 Insulin Aspart (Novolog Insulin Pen) (Adult SC Insulin - Mild Algorithm)... AC MEALS AND BEDTIME SC Last administered on 09/19/18 19:04; Admin Dose 1 UNIT; Start 09/19/18 at 11:00 Ferric Sodium Gluconate Complex 125 mg/Sodium Chloride 100 ml @ 100 mls/hr DAILY@1300 IVPB Last administered on 09/19/18 16:01; Admin Dose 100 MLS/HR; Start 09/19/18 at 14:30; Stop 09/21/18 at 13:59 KADIE ADAME NP Sep 20, 2018 08:57
--- NOTE | 2018-09-20 10:08 | PN ---
DATE: 09/20/2018 SUBJECTIVE: The patient is stable, was transferred from intensive care unit to telemetry. No events noted overnight. No hemoptysis, hematemesis or hematochezia. OBJECTIVE: VITAL SIGNS: Blood pressure is 129/78, respirations 18, pulse 102, temperature 98.2. HEENT: Head is normocephalic. NECK: Supple. HEART: Regular rate. LUNGS: Show diminished breath sounds at the base. ABDOMEN: Soft. Mild tenderness to palpation. EXTREMITIES: Negative for clubbing, cyanosis, no edema. DERMATOLOGIC: No rashes. MUSCULOSKELETAL: No joint effusion. NEUROLOGIC: No change in exam. MEDICATIONS: Reviewed. LABORATORY DATA: Reviewed. IMAGING STUDIES: Reviewed. ASSESSMENT AND PLAN: 1. Nonoliguric acute kidney injury with previously normal baseline creatinine. Etiology of acute ki dney injury is secondary to acute tubular necrosis due to severe pancreatitis. The patient's renal f unction is slowly improving. Currently in recovery phase of acute tubular necrosis. Continue curren t treatment plan, supportive care, renally dose all medications. 2. Severe hyperkalemia, resolved. 3. Metabolic acidosis, resolved. 4. Anemia. Continue to monitor hemoglobin and hematocrit levels. 5. Mineral bone disorder, monitor calcium and phosphorus levels. 6. Severe pancreatitis, clinically improving. Continue current medical management. Continue IV hyd ration. 7. Hypertriglyceridemia. Continue medical management. 8. Diabetes. Continue current insulin regimen. 9. History of ETOH abuse. Continue to monitor. No signs of withdrawal. Dictated By: OTONIEL NASCIMENTO DO NR/NTS Conf#: [id number] DID#: [id number] CC: SEBAS HER; BRANDY MARTINEZ MD; OTONIEL NASCIMENTO DO;*EndCC*
[2018-09-20] MEDS: SOD FERRIC GLUC COMPLX 125 MG in SOD CHLORIDE 0.9% 100 ML IVPB SCH (12:56)
--- NOTE | 2018-09-20 17:56 | CONS ---
Assessment/Plan Assessment/Plan Problems: (1) Diabetes mellitus type 2 in obese Status: Chronic Comment: Fair glycemic control on current liquid diet. Remains in goal range w/ glucose trending up throughout day. May need to give low dose Novolog pre- meals (2 units) if this trends above goal. Will monitor. Once diet advanced, will need to resume routine pre-meal Novolog doses. Consultation Date/Type/Reason Admit Date/Time Sep 15, 2018 at 14:37 Initial Consult Date 09/17/18 Type of Consult Endocrinology Reason for Consultation T2DM management Requesting Provider: JADYN DOWLING NP Date/Time of Note DATE: 09/20/18 TIME: 17:53 24 HR Interval Summary Constitutional: no complaints, improved, poor po Detailed Summary Respiratory: no complaints Cardiovascular: no complaints Gastrointestinal: pain (mild B flanks); No decreased appetite, No nausea, No vomiting Genitourinary: no complaints Musculoskeletal: no complaints Neurologic: no complaints Exam/Review of Systems Exam Vitals VS - Last 72 Hours, by Label Date Temp Pulse Resp B/P (MAP) Pulse Ox O2 O2 Flow FiO2 Time Delivery Rate 09/20/18 120 16:01 09/20/18 98.0 100 18 147/80 98 16:00 (102) 09/20/18 115 12:01 09/20/18 98.0 117 20 153/90 97 11:52 (111) 09/20/18 112 08:01 09/20/18 98.2 102 18 129/78 98 07:15 (95) 09/20/18 105 04:00 09/20/18 98.9 106 20 125/76 96 04:00 (92) 09/20/18 120 00:00 09/19/18 100.5 110 20 126/65 94 23:51 (85) 09/19/18 121 20:00 09/19/18 99.3 114 20 140/84 94 20:00 (102) 09/19/18 117 17:02 09/19/18 100.9 117 18 144/94 95 Room Air 17:00 (111) 09/19/18 115 16:00 09/19/18 117 17 135/70 91 Room Air 14:00 (91) 09/19/18 115 19 129/69 93 Room Air 13:00 (89) 09/19/18 99.5 113 20 167/96 94 Room Air 12:00 (119) 09/19/18 113 12:00 09/19/18 109 15 155/78 93 Room Air 11:00 (103) 09/19/18 179/89 10:00 (119) 09/19/18 179/89 100 Room Air 10:00 (119) 09/19/18 109 18 150/88 95 Room Air 09:00 (108) 09/19/18 100.5 111 12 142/103 92 Room Air 08:00 (116) 09/19/18 109 08:00 09/19/18 117 23 95 07:00 09/19/18 106 14 162/80 90 06:00 (107) 09/19/18 106 15 93 05:30 09/19/18 99.3 107 14 147/86 91 05:00 (106) 09/19/18 109 15 95 04:30 09/19/18 110 8 91 04:00 09/19/18 112 04:00 09/19/18 115 9 90 03:30 09/19/18 114 9 91 03:00 09/19/18 115 21 93 02:30 09/19/18 117 21 133/97 94 02:00 (109) 09/19/18 112 12 92 01:30 09/19/18 112 10 91 00:30 09/19/18 114 00:00 09/19/18 99.2 114 16 122/99 90 Room Air 00:00 (107) 09/18/18 115 11 91 23:30 09/18/18 118 11 139/84 91 23:00 (102) 09/18/18 117 22 93 22:30 09/18/18 115 132/88 90 22:00 (103) 09/18/18 122 17 92 21:30 09/18/18 114 24 92 21:00 09/18/18 120 29 90 20:30 09/18/18 Nasal 2.0 20:10 Cannula 09/18/18 116 20:00 09/18/18 99.3 116 26 146/71 92 Room Air 20:00 (96) 09/18/18 117 21 92 19:30 09/18/18 118 20 169/105 93 Room Air 19:00 (126) 09/18/18 118 20 169/105 93 19:00 (126) 09/18/18 115 20 92 18:30 09/18/18 114 19 149/91 94 18:00 (110) 09/18/18 114 19 149/91 94 Room Air 18:00 (110) 09/18/18 110 11 135/80 91 Room Air 17:00 (98) 09/18/18 113 16:01 09/18/18 98.8 16 132/72 95 Room Air 16:00 (92) 09/18/18 99 3.0 15:38 09/18/18 109 21 129/93 97 Room Air 15:00 (105) 09/18/18 115 19 137/94 95 Room Air 14:00 (108) 09/18/18 110 16 135/93 95 Nasal 2.0 13:00 (107) Cannula 09/18/18 108 12:01 09/18/18 98.0 109 27 108/73 Nasal 2.0 12:00 (85) Cannula 09/18/18 106 9 140/77 95 Nasal 2.0 11:00 (98) Cannula 09/18/18 105 12 134/84 94 Nasal 2.0 10:00 (101) Cannula 09/18/18 112 27 145/86 98 Nasal 2.0 09:00 (105) Cannula 09/18/18 114 08:01 09/18/18 Nasal 2.0 08:00 Cannula 09/18/18 98.8 130 27 120/90 92 Nasal 2.0 08:00 (100) Cannula 09/18/18 110 15 144/82 94 Nasal 2.0 07:00 (102) Cannula 09/18/18 110 14 131/89 92 Nasal 06:00 (103) Cannula 09/18/18 111 23 93 Nasal 05:00 Cannula 09/18/18 114 04:00 09/18/18 98.4 116 13 95 Nasal 04:00 Cannula 09/18/18 94 4.0 03:13 09/18/18 101 20 97 Nasal 4.0 03:13 Cannula 09/18/18 112 119/95 97 Nasal 03:00 (103) Cannula 09/18/18 110 22 152/102 99 Nasal 02:00 (119) Cannula 09/18/18 112 16 144/98 96 Nasal 01:00 (113) Cannula 09/18/18 119 00:00 09/18/18 98.2 118 16 149/90 95 Nasal 00:00 (109) Cannula 09/17/18 117 12 89 Nasal 23:00 Cannula 09/17/18 114 27 96 Nasal 22:00 Cannula 09/17/18 98.4 113 25 97 Nasal 2.0 20:00 Cannula 09/17/18 116 20:00 09/17/18 Nasal 2.0 20:00 Cannula 09/17/18 115 21 150/94 97 Nasal 2.0 19:00 (112) Cannula 09/17/18 117 27 152/95 98 Nasal 2.0 18:00 (114) Cannula Vital Signs Date Temp Pulse Resp B/P (MAP) Pulse Ox O2 O2 Flow FiO2 Time Delivery Rate 09/20/18 120 16:01 09/20/18 98.0 18 147/80 98 16:00 (102) 09/19/18 Room Air 17:00 09/18/18 2.0 20:10 Intake and Output 09/19/18 09/19/18 09/20/18 1515:00 23:00 07:00 IntakeIntake Total 880 ml 300 ml 1000 ml OutputOutput Total 2350 ml 900 ml 4800 ml BalanceBalance -1470 ml -600 ml -3800 ml Constitutional: alert, oriented, obese Respiratory: clear to auscultation, normal air movement Cardiovascular: regular rate and rhythm, nl pulses; No edema, No murmurs/extra sounds, No rub Gastrointestinal: nl liver, spleen, non-tender, bowel sounds, distended, firm; No soft Musculoskeletal: nl extremities to inspection Extremities: normal pulses; No cyanosis, No clubbing, No edema Neurological: MEAT PASSER II-XII intact, nl mental status, nl speech, nl strength Additional Comments Bedside Glucose - 72 Hours Test 09/17/18 21:33 09/17/18 23:49 09/18/18 00:34 09/18/18 05:04 Bedside 144 135 135 146 Glucose mg/dL (70-220) mg/dL (70-220) mg/dL (70-220) mg/dL (70-220) Test 09/18/18 07:45 09/18/18 11:37 09/18/18 17:28 09/18/18 20:40 Bedside 168 148 101 106 Glucose mg/dL (70-220) mg/dL (70-220) mg/dL (70-220) mg/dL (70-220) Test 09/19/18 01:50 09/19/18 04:56 09/19/18 08:57 09/19/18 17:20 Bedside 112 120 126 158 Glucose mg/dL (70-220) mg/dL (70-220) mg/dL (70-220) mg/dL (70-220) Test 09/19/18 20:18 09/20/18 08:08 09/20/18 12:12 09/20/18 17:21 Bedside 174 131 156 174 Glucose mg/dL (70-220) mg/dL (70-220) mg/dL (70-220) mg/dL (70-220) Results Result Diagram: 09/20/18 0525 09/20/18 0526 Results 24hrs Laboratory Tests Test 09/19/18 20:18 09/20/18 05:25 09/20/18 05:26 09/20/18 08:08 Bedside Glucose 174 131 White Blood Count 5.4 Red Blood Count 2.68 L Hemoglobin 7.6 L Hematocrit 22.9 L Mean Corpuscular 85.4 Volume Mean Corpuscular 28.4 L Hemoglobin Mean Corpuscular 33.2 Hemoglobin Concent Red Cell 13.8 Distribution Width Platelet Count 169 Mean Platelet Volume 9.2 Immature 2.000 H Granulocytes % Neutrophils % 71.3 Segmented 42 Neutrophils % (Manual) Band Neutrophils % 17 H (Manual) Lymphocytes % 13.2 L Lymphocytes % 24 (Manual) Monocytes % 10.4 Monocytes % (Manual) 11 Eosinophils % 2.4 Eosinophils % 5 (Manual) Basophils % 0.7 Promyelocytes % 1 H (Manual) Nucleated Red Blood 1 H Cells % Immature 0.110 H Granulocytes # Neutrophils # 3.8 Neutrophils # 2.3 (Manual) Band Neutrophils # 0.9 H Lymphocytes (Manual) 1.2 Lymphocytes # 0.7 L Monocytes # 0.6 Monocytes # (Manual) 0.5 Eosinophils # 0.1 Basophils # 0.0 Promyelocytes # 0.0 Nucleated Red Blood 0.0 Cells # Platelet Estimate NORMAL Polychromasia 1+ Hypochromasia 1+ Poikilocytosis 1+ Phosphorus Level 3.1 Magnesium Level 2.0 Triglycerides Level 386 H Cholesterol Level 163 LDL Cholesterol, 67 Calculated HDL Cholesterol 19 L Cholesterol/HDL 8.5 Ratio Lipase 416 H Sodium Level 136 Potassium Level 4.3 Chloride Level 102 Carbon Dioxide Level 24 Anion Gap 10 Blood Urea Nitrogen 15 # Creatinine 1.42 H Est Glomerular 53 L Filtrat Rate mL/min Glucose Level 117 Calcium Level 8.2 L Test 09/20/18 12:12 09/20/18 13:10 09/20/18 17:21 Bedside Glucose 156 174 Urine Color YELLOW Urine Clarity CLEAR Urine pH 6.0 Urine Specific 1.010 [place] Urine Ketones 1+ H Urine Nitrite NEGATIVE Urine Bilirubin NEGATIVE Urine Urobilinogen NEGATIVE Urine Leukocyte NEGATIVE Esterase Urine Microscopic 0 RBC Urine Microscopic 1 WBC Urine Hemoglobin 2+ H Urine Glucose 1+ H Urine Total Protein 1+ H Medications Medication Current Medications IV Flush (NS 3 ml) 3 ml PER PROTOCOL IV ; Start 09/15/18 at 16:30 Ondansetron HCl (Zofran Inj) 4 mg Q6H PRN IV NAUSEA/VOMITING Last administered on 09/17/18at 17:41; Admin Dose 4 MG; Start 09/15/18 at 16:30 Acetaminophen (Tylenol Tab) 650 mg Q6H PRN PO .PAIN 1-3 OR TEMP; Start 09/15/18 at 16:30 Acetaminophen (Tylenol Supp) 650 mg Q6H PRN [place] .PAIN 1-3 OR TEMP Last administered on 09/15/18at 20:06; Admin Dose 650 MG; Start 09/15/18 at 16:30 Famotidine (Pepcid Iv) 20 mg Q12 IV Last administered on 09/20/18at 08:26; Admin Dose 20 MG; Start 09/15/18 at 21:00 Hydromorphone HCl (Dilaudid) 2 mg Q3H PRN IV SEVERE PAIN LEVEL 7-10 Last administered on 09/20/18at 16:02; Admin Dose 2 MG; Start 09/16/18 at 18:00 Sodium Chloride 1,000 ml @ 100 mls/hr Q10H IV Last administered on 09/20/18at 08:30; Admin Dose 100 MLS/HR; Start 09/17/18 at 02:00 Insulin Glargine (Lantus) 24 units DAILY@2000 SC Last administered on 09/19/18at 20:58; Admin Dose 24 UNITS; Start 09/17/18 at 20:00 Miscellaneous Information 1 ea NOTE XX ; Start 09/17/18 at 13:00 Glucose (Glutose) 15 gm Q15M PRN PO DECREASED GLUCOSE; Start 09/17/18 at 13:00 Glucose (Glutose) 22.5 gm Q15M PRN PO DECREASED GLUCOSE; Start 09/17/18 at 13:00 Dextrose (D50w Syringe) 25 ml Q15M PRN IV DECREASED GLUCOSE; Start 09/17/18 at 13:00 Dextrose (D50w Syringe) 50 ml Q15M PRN IV DECREASED GLUCOSE; Start 09/17/18 at 13:00 Glucagon (Glucagen) 1 mg Q15M PRN IM DECREASED GLUCOSE; Start 09/17/18 at 13:00 Glucose (Glutose) 15 gm Q15M PRN BUCCAL DECREASED GLUCOSE; Start 09/17/18 at 13:00 Methadone HCl (Methadone Liq (Ped)) 2 mg Q4 PO Last administered on 09/20/18 17:27; Admin Dose 2 MG; Start 09/17/18 at 21:00 Gemfibrozil (Lopid) 600 mg BID PO Last administered on 09/20/18 08:25; Admin Dose 600 MG; Start 09/17/18 at 21:00 Fish Oil (Fish Oil) 2,000 mg BID PO Last administered on 09/20/18 08:26; Admin Dose 2,000 MG; Start 09/17/18 at 21:00 Levalbuterol (Xopenex Neb) 1.25 mg Q3H RESP THERAPY PRN HHN SHORTNESS OF BREATH Last administered on 09/18/18 03:12; Admin Dose 1.25 MG; Start 09/18/18 at 03:00 Ipratropium [place] (Atrovent 0.02% (Neb)) 0.5 mg Q3H RESP THERAPY PRN HHN SHORTNESS OF BREATH Last administered on 09/18/18 03:12; Admin Dose 0.5 MG; Start 09/18/18 at 03:00 Mupirocin (Bactroban) 1 applic BID TOP Last administered on 09/20/18 08:25; Admin Dose 1 APPLIC; Start 09/18/18 at 21:00 Amlodipine Besylate (Norvasc) 2.5 mg DAILY PO Last administered on 09/20/18 08:25; Admin Dose 2.5 MG; Start 09/20/18 at 09:00 Insulin Aspart (Novolog Insulin Pen) (Adult SC Insulin - Mild Algorithm)... AC MEALS AND BEDTIME SC Last administered on 09/20/18at 17:31; Admin Dose 1 UNIT; Start 09/19/18 at 11:00 Ferric Sodium Gluconate Complex 125 mg/Sodium Chloride 100 ml @ 100 mls/hr DAILY@1300 IVPB Last administered on 09/20/18at 12:56; Admin Dose 100 MLS/HR; Start 09/19/18 at 14:30; Stop 09/21/18 at 13:59 IDA GONZALEZ MD Sep 20, 2018 17:56
[2018-09-20] MEDS: INSULIN GLARGINE [LANTus] (100 UNITS/ML) SYG SC SCH (19:56)
[2018-09-21] VITALS (10 sets, daily range): BP systolic 136–159; BP diastolic 83–94; PULSE 72–125; RESP 18–22
[2018-09-21] MEDS: METHADONE (1 MG/1 ML PO SYG) PO SCH ×6 (01:00→20:45)
[2018-09-21] MEDS: HYDROmorphONE 1 MG/ML SYG IV PRN ×3 (02:41→18:31)
[2018-09-21] MEDS: SOD CHLORIDE 0.9% 1,000 ML IV SCH ×2 (05:55→15:39)
[2018-09-21] MEDS: Insulin NOVOLOG SS MILD Algorithm (SS with meals and bedtime) SC SCH ×4 (07:25→20:45)
[2018-09-21] MEDS: FISH OIL 1,000 MG CAP PO SCH ×2 (08:14→20:44)
[2018-09-21] MEDS: AMLODIPINE 2.5 MG TAB PO SCH (08:15)
[2018-09-21] MEDS: GEMFIBROZIL 600 MG TAB PO SCH ×2 (08:15→20:44)
[2018-09-21] MEDS: FAMOTIDINE 20 MG INJ IV SCH ×2 (08:16→20:44)
[2018-09-21] MEDS: MUPIROCIN 2% 22 GM OINT TOP SCH ×2 (08:16→20:45)
--- NOTE | 2018-09-21 09:21 | PN ---
DATE: 09/21/2018 SUBJECTIVE: The patient is stable. Abdominal pain is improving, tolerating orals. No other events noted. OBJECTIVE: VITAL SIGNS: Blood pressure is 136/86, respirations 22, pulse 109, temperature 99%. HEENT: Head is normocephalic. NECK: Supple. HEART: Regular rate. LUNGS: Show diminished breath sounds at the base. ABDOMEN: Soft, mild tenderness to palpation. No rebound or guarding. EXTREMITIES: Negative for clubbing, cyanosis, no edema. DERMATOLOGIC: No rashes. MUSCULOSKELETAL: No joint effusion. NEUROLOGIC: No focal deficits. MEDICATIONS: Reviewed. LABORATORY DATA: Reviewed. ASSESSMENT AND PLAN: 1. Nonoliguric acute kidney injury with previous normal baseline creatinine. Etiology of acute kidn ey injury is secondary to acute tubular necrosis due to severe pancreatitis. The patient's renal fun ction is improving. Continue current treatment plan, supportive care, renally dose all medications. 2. Severe hyperkalemia, resolved. 3. Metabolic acidosis, resolved. 4. Anemia. Monitor hemoglobin and hematocrit levels. 5. Mineral bone disorder. Monitor calcium and phosphorus levels. 6. Severe pancreatitis, improving. She is tolerating p.o. 7. Diabetes. Continue current insulin regimen. 8. History of ETOH abuse. 9. Hypertriglyceridemia. Continue medical management. Dictated By: OTONIEL URBAN/SHONDA Conf#: [id number] DID#: [id number] CC: SEBAS HER; OTONIEL NASCIMENTO DO; BRANDY MARTINEZ MD;*EndCC*
[2018-09-21] MEDS: SOD FERRIC GLUC COMPLX 125 MG in SOD CHLORIDE 0.9% 100 ML IVPB SCH (13:15)
--- NOTE | 2018-09-21 13:47 | PN ---
Date/Time of Note Date/Time of Note DATE: 09/21/18 TIME: 13:45 Assessment/Plan VTE Prophylaxis Risk score (from Nsg)>0 risk: 1 SCD applied (from Nsg): Yes Pharmacological prophylaxis: NA/contraindicated Pharm contraindication: low risk/ambulating Lines/Catheters IV Catheter Type (from Nrsg): Peripheral IV Urinary Cath still in place: No Assessment/Plan Hospital Course SUBJECTIVE: Denies any abdominal pain. Tolerating full liquids. OBJECTIVE: Physical Exam General: Obese, 48 year-old male lying in bed in no apparent distress. HEENT: Normocephalic, atraumatic. Eyes: Anicteric sclerae, conjunctivae clear. ENT: Nasal septum midline, oral mucosa is moist. Neck supple. Respiratory: Bilaterally clear breath sounds. No use of accessory muscles of respiration. No adventitious breath sounds. Cardiovascular: S1, S2 heard. No murmurs or gallops. Abdomen: Soft, nontender, and nondistended. Bowel sounds positive in all 4 quadrants. Genitourinary: Deferred. Extremities: No cyanosis, no clubbing, no edema. Peripheral pulses palpable. Neurologic: Cranial nerves II through XII grossly intact. The patient is awake, alert, and oriented. Skin: Normal skin turgor. No skin rashes. Labs & Vitals per chart ASSESSMENT & PLAN 48-year-old male with comorbidities including hyperlipidemia, hypertension, d iabetes mellitus, and obesity, who went to the [facility] emergency room with chief complaint of abdominal pain, was found to have evidence of underlying acute pancreatitis and acute kidney injury, who was transferred to [facility] for further evaluation because of insurance reasons. 1. Severe acute pancreatitis. Most probably secondary to underlying hypertriglyceridemia. Continue IV hydration. Started on clears on 09/19/2018. 2. Acute nonoliguric kidney injury. Most probably secondary to underlying ATN. Being followed by nephrology. Continue IV hydration. Use nephrotoxic drugs with caution. 3. Hypocalcemia. Most probably secondary to underlying pancreatitis. Replete as necessary. 4. Dyslipidemia with hypertriglyceridemia. S/P insulin gtt. Continue gemfibrozil and fish oil. 5. DM type 2. Uncontrolled. S/P insulin gtt. Continue SSI. 6. Hypertension. Continue antihypertensives. 7. Alcoholism. Last drink 3 weeks ago. Verbalized desire to remain sober. 8. Obesity. BMI 32 kg/m. Status post dietary consult. Reinforced weight reduction. 9. MRSA colonization of the nares. Continue Bactroban. 10. Hyperbilirubinemia. Etiology unclear. Possibly from underlying acute pancreatitis. Avoid hepatotoxic medications. 11. Normocytic anemia. Etiology could be multifactorial including underlying iron deficiency. Continue iron supplements. 12. Medication non-compliance. Counseling. 13. Fluids, electrolytes, and nutrition. Continue IV hydration. Advance to regular consistency diet. 14. DVT prophylaxis. Bilateral SCDs. 15. Plan. Continue IV hydration. Advance to regular consistency diet. Transfer the patient to Med/Surg. Disposition: To home once he remains afebrile for 24 hours. The patient was seen in collaboration with Dr. Ko. Result Diagram: 09/21/18 0616 09/21/18 0616 Results 24hrs Laboratory Tests Test 09/20/18 17:21 09/20/18 19:49 09/21/18 06:16 09/21/18 08:13 Bedside Glucose 174 197 138 White Blood Count 8.1 # Red Blood Count 2.47 L Hemoglobin 7.0 L Hematocrit 21.3 L Mean Corpuscular 86.2 Volume Mean Corpuscular 28.3 L Hemoglobin Mean Corpuscular 32.9 Hemoglobin Concent Red Cell 13.8 Distribution Width Platelet Count 178 Mean Platelet Volume 9.1 Immature 4.100 H Granulocytes % Neutrophils % 76.4 Lymphocytes % 9.7 L Monocytes % 7.7 Eosinophils % 1.6 Basophils % 0.5 Nucleated Red Blood 0.0 Cells % Immature 0.330 H Granulocytes # Neutrophils # 6.2 Lymphocytes # 0.8 Monocytes # 0.6 Eosinophils # 0.1 Basophils # 0.0 Nucleated Red Blood 0.0 Cells # Sodium Level 136 Potassium Level 3.8 Chloride Level 101 Carbon Dioxide Level 24 Anion Gap 11 Blood Urea Nitrogen 12 Creatinine 1.28 H Est Glomerular > 60 Filtrat Rate mL/min Glucose Level 159 Calcium Level 8.7 Phosphorus Level 3.9 Magnesium Level 1.8 Total Bilirubin 1.6 H Direct Bilirubin 0.80 H Indirect Bilirubin 0.8 Aspartate Amino 43 Transf (AST/SGOT) Alanine 18 Aminotransferase (AL T/SGPT) Alkaline Phosphatase 114 Total Protein 6.3 Albumin 3.2 L Globulin 3.10 Albumin/Globulin 1.03 Ratio Lipase 343 H Test 09/21/18 13:16 Bedside Glucose 158 Exam/Review of Systems Exam Vitals Vital Signs Date Temp Pulse Resp B/P (MAP) Pulse Ox O2 O2 Flow FiO2 Time Delivery Rate 09/21/18 114 12:00 09/21/18 100.0 22 145/88 96 Room Air 2.0 11:02 (107) Intake and Output 09/20/18 09/20/18 09/21/18 1515:00 23:00 07:00 IntakeIntake Total 760 ml 910 ml 2000 ml OutputOutput Total 600 ml 900 ml 4600 ml BalanceBalance 160 ml 10 ml -2600 ml Results Results 24hrs Laboratory Tests Test 09/20/18 17:21 09/20/18 19:49 09/21/18 06:16 09/21/18 08:13 Bedside Glucose 174 197 138 White Blood Count 8.1 # Red Blood Count 2.47 L Hemoglobin 7.0 L Hematocrit 21.3 L Mean Corpuscular 86.2 Volume Mean Corpuscular 28.3 L Hemoglobin Mean Corpuscular 32.9 Hemoglobin Concent Red Cell 13.8 Distribution Width Platelet Count 178 Mean Platelet Volume 9.1 Immature 4.100 H Granulocytes % Neutrophils % 76.4 Lymphocytes % 9.7 L Monocytes % 7.7 Eosinophils % 1.6 Basophils % 0.5 Nucleated Red Blood 0.0 Cells % Immature 0.330 H Granulocytes # Neutrophils # 6.2 Lymphocytes # 0.8 Monocytes # 0.6 Eosinophils # 0.1 Basophils # 0.0 Nucleated Red Blood 0.0 Cells # Sodium Level 136 Potassium Level 3.8 Chloride Level 101 Carbon Dioxide Level 24 Anion Gap 11 Blood Urea Nitrogen 12 Creatinine 1.28 H Est Glomerular > 60 Filtrat Rate mL/min Glucose Level 159 Calcium Level 8.7 Phosphorus Level 3.9 Magnesium Level 1.8 Total Bilirubin 1.6 H Direct Bilirubin 0.80 H Indirect Bilirubin 0.8 Aspartate Amino 43 Transf (AST/SGOT) Alanine 18 Aminotransferase (AL T/SGPT) Alkaline Phosphatase 114 Total Protein 6.3 Albumin 3.2 L Globulin 3.10 Albumin/Globulin 1.03 Ratio Lipase 343 H Test 09/21/18 13:16 Bedside Glucose 158 Medications Medication Current Medications IV Flush (NS 3 ml) 3 ml PER PROTOCOL IV ; Start 09/15/18 at 16:30 Ondansetron HCl (Zofran Inj) 4 mg Q6H PRN IV NAUSEA/VOMITING Last administered on 09/17/18at 17:41; Admin Dose 4 MG; Start 09/15/18 at 16:30 Acetaminophen (Tylenol Tab) 650 mg Q6H PRN PO .PAIN 1-3 OR TEMP; Start 09/15/18 at 16:30 Acetaminophen (Tylenol Supp) 650 mg Q6H PRN SD .PAIN 1-3 OR TEMP Last a dministered on 09/15/18at 20:06; Admin Dose 650 MG; Start 09/15/18 at 16:30 Famotidine (Pepcid Iv) 20 mg Q12 IV Last administered on 09/21/18at 08:16; Admin Dose 20 MG; Start 09/15/18 at 21:00 Hydromorphone HCl (Dilaudid) 2 mg Q3H PRN IV SEVERE PAIN LEVEL 7-10 Last administered on 09/21/18at 08:17; Admin Dose 2 MG; Start 09/16/18 at 18:00 Sodium Chloride 1,000 ml @ 100 mls/hr Q10H IV Last administered on 09/21/18at 05:55; Admin Dose 100 MLS/HR; Start 09/17/18 at 02:00 Insulin Glargine (Lantus) 24 units DAILY@2000 SC Last administered on 09/20/18at 19:56; Admin Dose 24 UNITS; Start 09/17/18 at 20:00 Miscellaneous Information 1 ea NOTE XX ; Start 09/17/18 at 13:00 Glucose (Glutose) 15 gm Q15M PRN PO DECREASED GLUCOSE; Start 09/17/18 at 13:00 Glucose (Glutose) 22.5 gm Q15M PRN PO DECREASED GLUCOSE; Start 09/17/18 at 13:00 Dextrose (D50w Syringe) 25 ml Q15M PRN IV DECREASED GLUCOSE; Start 09/17/18 at 13:00 Dextrose (D50w Syringe) 50 ml Q15M PRN IV DECREASED GLUCOSE; Start 09/17/18 at 13:00 Glucagon (Glucagen) 1 mg Q15M PRN IM DECREASED GLUCOSE; Start 09/17/18 at 13:00 Glucose (Glutose) 15 gm Q15M PRN BUCCAL DECREASED GLUCOSE; Start 09/17/18 at 13:00 Methadone HCl (Methadone Liq (Ped)) 2 mg Q4 PO Last administered on 09/21/18 10:37; Admin Dose 2 MG; Start 09/17/18 at 21:00 Gemfibrozil (Lopid) 600 mg BID PO Last administered on 09/21/18 08:15; Admin Dose 600 MG; Start 09/17/18 at 21:00 Fish Oil (Fish Oil) 2,000 mg BID PO Last administered on 09/21/18 08:14; Admin Dose 2,000 MG; Start 09/17/18 at 21:00 Levalbuterol (Xopenex Neb) 1.25 mg Q3H RESP THERAPY PRN HHN SHORTNESS OF BREATH Last administered on 09/18/18 03:12; Admin Dose 1.25 MG; Start 09/18/18 at 03:00 Ipratropium [place] (Atrovent 0.02% (Neb)) 0.5 mg Q3H RESP THERAPY PRN HHN SHORTNESS OF BREATH Last administered on 09/18/18 03:12; Admin Dose 0.5 MG; Start 09/18/18 at 03:00 Mupirocin (Bactroban) 1 applic BID TOP Last administered on 09/21/18 08:16; Admin Dose 1 APPLIC; Start 09/18/18 at 21:00 Amlodipine Besylate (Norvasc) 2.5 mg DAILY PO Last administered on 09/21/18 08:15; Admin Dose 2.5 MG; Start 09/20/18 at 09:00 Insulin Aspart (Novolog Insulin Pen) (Adult SC Insulin - Mild Algorithm)... AC MEALS AND BEDTIME SC Last administered on 09/21/18 13:22; Admin Dose 1 UNIT; Start 09/19/18 at 11:00 Ferric Sodium Gluconate Complex 125 mg/Sodium Chloride 100 ml @ 100 mls/hr DAILY@1300 IVPB Last administered on 09/21/18 13:15; Admin Dose 100 MLS/HR; Start 09/19/18 at 14:30; Stop 09/21/18 at 13:59 KADIE ADAME NP Sep 21, 2018 13:47
--- NOTE | 2018-09-21 17:41 | CONS ---
Assessment/Plan Assessment/Plan Problems: (1) Diabetes mellitus type 2 in obese Status: Chronic Comment: Diet advanced. Will start Novolog 6 units qac. Prepare to hold if pt. does not tolerate diet. (2) Mixed hyperlipidemia Status: Chronic Comment: Cont. fenofibrate and lovaza Consultation Date/Type/Reason Admit Date/Time Sep 15, 2018 at 14:37 Initial Consult Date 09/17/18 Type of Consult Endocrinology Reason for Consultation T2DM OOC Requesting Provider: JADYN DOWLING NP Date/Time of Note DATE: 09/21/18 TIME: 17:39 24 HR Interval Summary Constitutional: no complaints, improved (tolerating diet but still w/ B abd. flank pain) Detailed Summary Respiratory: no complaints Cardiovascular: no complaints Gastrointestinal: pain (B flanks); No decreased appetite, No nausea, No vomiting Genitourinary: no complaints Musculoskeletal: no complaints Neurologic: no complaints Exam/Review of Systems Exam Vitals VS - Last 72 Hours, by Label Date Temp Pulse Resp B/P (MAP) Pulse Ox O2 O2 Flow FiO2 Time Delivery Rate 09/21/18 98.0 118 22 143/83 96 Nasal 2.0 15:40 (103) Cannula 09/21/18 114 12:00 09/21/18 100.0 112 22 145/88 96 Room Air 2.0 11:02 (107) 09/21/18 2.0 10:17 09/21/18 122 08:00 09/21/18 98.9 109 22 136/86 93 Nasal 07:15 (103) Cannula 09/21/18 98.9 112 18 158/87 96 04:15 (110) 09/21/18 115 04:01 09/21/18 98.7 110 18 159/89 96 00:24 (112) 09/21/18 125 00:01 09/20/18 98.8 115 18 130/79 96 20:39 (96) 09/20/18 118 20:00 09/20/18 120 16:01 09/20/18 98.0 100 18 147/80 98 16:00 (102) 09/20/18 115 12:01 09/20/18 98.0 117 20 153/90 97 11:52 (111) 09/20/18 112 08:01 09/20/18 98.2 102 18 129/78 98 07:15 (95) 09/20/18 105 04:00 09/20/18 98.9 106 20 125/76 96 04:00 (92) 09/20/18 120 00:00 09/19/18 100.5 110 20 126/65 94 23:51 (85) 09/19/18 121 20:00 09/19/18 99.3 114 20 140/84 94 20:00 (102) 09/19/18 117 17:02 09/19/18 100.9 117 18 144/94 95 Room Air 17:00 (111) 09/19/18 115 16:00 09/19/18 117 17 135/70 91 Room Air 14:00 (91) 09/19/18 115 19 129/69 93 Room Air 13:00 (89) 09/19/18 99.5 113 20 167/96 94 Room Air 12:00 (119) 09/19/18 113 12:00 09/19/18 109 15 155/78 93 Room Air 11:00 (103) 09/19/18 179/89 10:00 (119) 09/19/18 179/89 100 Room Air 10:00 (119) 09/19/18 109 18 150/88 95 Room Air 09:00 (108) 09/19/18 100.5 111 12 142/103 92 Room Air 08:00 (116) 09/19/18 109 08:00 09/19/18 117 23 95 07:00 09/19/18 106 14 162/80 90 06:00 (107) 09/19/18 106 15 93 05:30 09/19/18 99.3 107 14 147/86 91 05:00 (106) 09/19/18 109 15 95 04:30 09/19/18 110 8 91 04:00 09/19/18 112 04:00 09/19/18 115 9 90 03:30 09/19/18 114 9 91 03:00 09/19/18 115 21 93 02:30 09/19/18 117 21 133/97 94 02:00 (109) 09/19/18 112 12 92 01:30 09/19/18 112 10 91 00:30 09/19/18 114 00:00 09/19/18 99.2 114 16 122/99 90 Room Air 00:00 (107) 09/18/18 115 11 91 23:30 09/18/18 118 11 139/84 91 23:00 (102) 09/18/18 117 22 93 22:30 09/18/18 115 132/88 90 22:00 (103) 09/18/18 122 17 92 21:30 09/18/18 114 24 92 21:00 09/18/18 120 29 90 20:30 09/18/18 Nasal 2.0 20:10 Cannula 09/18/18 116 20:00 09/18/18 99.3 116 26 146/71 92 Room Air 20:00 (96) 09/18/18 117 21 92 19:30 09/18/18 118 20 169/105 93 Room Air 19:00 (126) 09/18/18 118 20 169/105 93 19:00 (126) 09/18/18 115 20 92 18:30 09/18/18 114 19 149/91 94 18:00 (110) 09/18/18 114 19 149/91 94 Room Air 18:00 (110) Vital Signs Date Temp Pulse Resp B/P (MAP) Pulse Ox O2 O2 Flow FiO2 Time Delivery Rate 09/21/18 98.0 118 22 143/83 96 Nasal 2.0 15:40 (103) Cannula Intake and Output 09/20/18 09/20/18 09/21/18 1515:00 23:00 07:00 IntakeIntake Total 760 ml 910 ml 2000 ml OutputOutput Total 600 ml 900 ml 4600 ml BalanceBalance 160 ml 10 ml -2600 ml Constitutional: alert, oriented, obese Respiratory: clear to auscultation, normal air movement Cardiovascular: regular rate and rhythm, nl pulses; No edema, No murmurs/extra sounds, No rub Gastrointestinal: soft, nl liver, spleen, bowel sounds, tender (RLQ); No non-tender, No mass, No rebound or guarding Musculoskeletal: nl extremities to inspection Extremities: normal pulses; No cyanosis, No clubbing, No edema Neurological: [employer] II-XII intact, nl mental status, nl speech, nl strength Additional Comments Bedside Glucose - 72 Hours Test 09/18/18 20:40 09/19/18 01:50 09/19/18 04:56 09/19/18 08:57 Bedside 106 112 120 126 Glucose mg/dL (70-220) mg/dL (70-220) mg/dL (70-220) mg/dL (70-220) Test 09/19/18 17:20 09/19/18 20:18 09/20/18 08:08 09/20/18 12:12 Bedside 158 174 131 156 Glucose mg/dL (70-220) mg/dL (70-220) mg/dL (70-220) mg/dL (70-220) Test 09/20/18 17:21 09/20/18 19:49 09/21/18 08:13 09/21/18 13:16 Bedside 174 197 138 158 Glucose mg/dL (70-220) mg/dL (70-220) mg/dL (70-220) mg/dL (70-220) Results Result Diagram: 09/21/18 0616 09/21/18 0616 Results 24hrs Laboratory Tests Test 09/20/18 19:49 09/21/18 06:16 09/21/18 08:13 09/21/18 13:16 Bedside Glucose 197 138 158 White Blood Count 8.1 # Red Blood Count 2.47 L Hemoglobin 7.0 L Hematocrit 21.3 L Mean Corpuscular 86.2 Volume Mean Corpuscular 28.3 L Hemoglobin Mean Corpuscular 32.9 Hemoglobin Concent Red Cell 13.8 Distribution Width Platelet Count 178 Mean Platelet Volume 9.1 Immature 4.100 H Granulocytes % Neutrophils % 76.4 Lymphocytes % 9.7 L Monocytes % 7.7 Eosinophils % 1.6 Basophils % 0.5 Nucleated Red Blood 0.0 Cells % Immature 0.330 H Granulocytes # Neutrophils # 6.2 Lymphocytes # 0.8 Monocytes # 0.6 Eosinophils # 0.1 Basophils # 0.0 Nucleated Red Blood 0.0 Cells # Sodium Level 136 Potassium Level 3.8 Chloride Level 101 Carbon Dioxide Level 24 Anion Gap 11 Blood Urea Nitrogen 12 Creatinine 1.28 H Est Glomerular > 60 Filtrat Rate mL/min Glucose Level 159 Calcium Level 8.7 Phosphorus Level 3.9 Magnesium Level 1.8 Total Bilirubin 1.6 H Direct Bilirubin 0.80 H Indirect Bilirubin 0.8 Aspartate Amino 43 Transf (AST/SGOT) Alanine 18 Aminotransferase (AL T/SGPT) Alkaline Phosphatase 114 Total Protein 6.3 Albumin 3.2 L Globulin 3.10 Albumin/Globulin 1.03 Ratio Lipase 343 H Medications Medication Current Medications IV Flush (NS 3 ml) 3 ml PER PROTOCOL IV ; Start 09/15/18 at 16:30 Ondansetron HCl (Zofran Inj) 4 mg Q6H PRN IV NAUSEA/VOMITING Last administered on 09/17/18at 17:41; Admin Dose 4 MG; Start 09/15/18 at 16:30 Acetaminophen (Tylenol Tab) 650 mg Q6H PRN PO .PAIN 1-3 OR TEMP; Start 09/15/18 at 16:30 Acetaminophen (Tylenol Supp) 650 mg Q6H PRN AR .PAIN 1-3 OR TEMP Last administered on 09/15/18at 20:06; Admin Dose 650 MG; Start 09/15/18 at 16:30 Famotidine (Pepcid Iv) 20 mg Q12 IV Last administered on 09/21/18at 08:16; Admin Dose 20 MG; Start 09/15/18 at 21:00 Hydromorphone HCl (Dilaudid) 2 mg Q3H PRN IV SEVERE PAIN LEVEL 7-10 Last administered on 09/21/18at 08:17; Admin Dose 2 MG; Start 09/16/18 at 18:00 Sodium Chloride 1,000 ml @ 100 mls/hr Q10H IV Last administered on 09/21/18at 15:39; Admin Dose 100 MLS/HR; Start 09/17/18 at 02:00 Insulin Glargine (Lantus) 24 units DAILY@2000 SC Last administered on 09/20/18at 19:56; Admin Dose 24 UNITS; Start 09/17/18 at 20:00 Miscellaneous Information 1 ea NOTE XX ; Start 09/17/18 at 13:00 Glucose (Glutose) 15 gm Q15M PRN PO DECREASED GLUCOSE; Start 09/17/18 at 13:00 Glucose (Glutose) 22.5 gm Q15M PRN PO DECREASED GLUCOSE; Start 09/17/18 at 13:00 Dextrose (D50w Syringe) 25 ml Q15M PRN IV DECREASED GLUCOSE; Start 09/17/18 at 13:00 Dextrose (D50w Syringe) 50 ml Q15M PRN IV DECREASED GLUCOSE; Start 09/17/18 at 13:00 Glucagon (Glucagen) 1 mg Q15M PRN IM DECREASED GLUCOSE; Start 09/17/18 at 13:00 Glucose (Glutose) 15 gm Q15M PRN BUCCAL DECREASED GLUCOSE; Start 09/17/18 at 13:00 Methadone HCl (Methadone Liq (Ped)) 2 mg Q4 PO Last administered on 09/21/18 17:10; Admin Dose 2 MG; Start 09/17/18 at 21:00 Gemfibrozil (Lopid) 600 mg BID PO Last administered on 09/21/18 08:15; Admin Dose 600 MG; Start 09/17/18 at 21:00 Fish Oil (Fish Oil) 2,000 mg BID PO Last administered on 09/21/18 08:14; Admin Dose 2,000 MG; Start 09/17/18 at 21:00 Levalbuterol (Xopenex Neb) 1.25 mg Q3H RESP THERAPY PRN HHN SHORTNESS OF BREATH Last administered on 09/18/18 03:12; Admin Dose 1.25 MG; Start 09/18/18 at 03:00 Ipratropium [place] (Atrovent 0.02% (Neb)) 0.5 mg Q3H RESP THERAPY PRN HHN SHORTNESS OF BREATH Last administered on 09/18/18 03:12; Admin Dose 0.5 MG; Start 09/18/18 at 03:00 Mupirocin (Bactroban) 1 applic BID TOP Last administered on 09/21/18 08:16; Admin Dose 1 APPLIC; Start 09/18/18 at 21:00 Amlodipine Besylate (Norvasc) 2.5 mg DAILY PO Last administered on 09/21/18 08:15; Admin Dose 2.5 MG; Start 09/20/18 at 09:00 Insulin Aspart (Novolog Insulin Pen) (Adult SC Insulin - Mild Algorithm)... AC MEALS AND BEDTIME SC Last administered on 09/21/18 13:22; Admin Dose 1 UNIT; Start 09/19/18 at 11:00 IDA GONZALEZ MD Sep 21, 2018 17:41
[2018-09-21] MEDS: INSULIN ASPART [NOVOLOG] 3 ML PEN SC SCH (18:41)
[2018-09-21] MEDS: INSULIN GLARGINE [LANTus] (100 UNITS/ML) SYG SC SCH (19:50)
[2018-09-22] VITALS (7 sets, daily range): BP systolic 134–168; BP diastolic 79–95; PULSE 100–114; RESP 17–20
[2018-09-22] MEDS: SOD CHLORIDE 0.9% 1,000 ML IV SCH (00:11)
[2018-09-22] MEDS: HYDROmorphONE 1 MG/ML SYG IV PRN ×8 (00:11→23:07)
[2018-09-22] MEDS: METHADONE (1 MG/1 ML PO SYG) PO SCH ×3 (01:00→09:52)
[2018-09-22] MEDS: DOCUSATE SODIUM 100 MG CAP PO SCH ×3 (03:26→20:08)
[2018-09-22] MEDS: POLYETHYLENE GLYCOL 17 GM PACKET PO SCH ×2 (03:26→08:54)
[2018-09-22] MEDS ORDERED: METHADONE (1 MG/ML 5 ML PO UD SYG) ONE (04:52)
[2018-09-22] MEDS ORDERED: SOD CHLORIDE 0.9% 250 ML IV* ONE (07:32)
[2018-09-22] MEDS: Insulin NOVOLOG SS MILD Algorithm (SS with meals and bedtime) SC SCH ×4 (08:21→21:00)
[2018-09-22] MEDS: INSULIN ASPART [NOVOLOG] 3 ML PEN SC SCH ×4 (08:22→17:35)
[2018-09-22] MEDS: FISH OIL 1,000 MG CAP PO SCH ×2 (08:53→20:08)
[2018-09-22] MEDS: FAMOTIDINE 20 MG INJ IV SCH (08:53)
[2018-09-22] MEDS: AMLODIPINE 2.5 MG TAB PO SCH (08:54)
[2018-09-22] MEDS: GEMFIBROZIL 600 MG TAB PO SCH ×3 (09:00→20:08)
[2018-09-22] MEDS: MUPIROCIN 2% 22 GM OINT TOP SCH ×3 (09:00→20:09)
--- NOTE | 2018-09-22 09:07 | PN ---
DATE: 09/22/2018 SUBJECTIVE: The patient is stable. No events overnight. The patient's abdominal pain is improving. OBJECTIVE: VITAL SIGNS: Blood pressure is 134/79, pulse 107, respirations 20, temperature 98.9. HEENT: Head is normocephalic. NECK: Supple. HEART: Regular rate. LUNGS: Show diminished breath sounds at the base. ABDOMEN: Soft, nontender to palpation without rebound or guarding. EXTREMITIES: Negative for clubbing, cyanosis, no edema. DERMATOLOGIC: No rashes. MUSCULOSKELETAL: No joint effusion. NEUROLOGIC: No change in exam. MEDICATIONS: Reviewed. LABORATORY DATA: Reviewed. IMAGING STUDIES: Reviewed. ASSESSMENT AND PLAN: 1. Nonoliguric acute kidney injury with previously normal baseline creatinine. Etiology of acute ki dney injury is secondary to acute tubular necrosis. Renal function is improved. Continue current tr eatment plans, supportive care, renally dose all medications. 2. Severe hypokalemia, resolved. 3. Metabolic acidosis, resolved. 4. Anemia. The patient's hemoglobin levels are declined. We will repeat hemoglobin and hematocrit levels and monitor closely. Transfuse as needed. 5. Mineral bone disorder. Monitor calcium and phosphorus levels. 6. Severe pancreatitis, improving. The patient is tolerating p.o. We will consider discontinuing I V fluids. 7. Diabetes. Continue current insulin regimen. 8. History of ETOH abuse. 9. Hypertriglyceridemia. Continue medical management. Dictated By: OTONIEL NASCIMENTO DO NR/NTS Conf#: [id number] DID#: [id number] CC: BRANDY MARTINEZ MD; OTONIEL NASCIMENTO DO; SEBAS HER;*EndCC*
[2018-09-22] MEDS ORDERED: LACTULOSE 30ML CUP PO ONE (11:00)
--- NOTE | 2018-09-22 11:20 | PN ---
Date/Time of Note Date/Time of Note DATE: 09/22/18 TIME: 11:14 Assessment/Plan VTE Prophylaxis Risk score (from Nsg)>0 risk: 1 SCD applied (from Nsg): Yes Pharmacological prophylaxis: NA/contraindicated Pharm contraindication: other (Anemia) Lines/Catheters [facility] Per[facility] IV Urinary Cath still in place: No Assessment/Plan Hospital Course SUBJECTIVE: Denies any abdominal pain. Tolerating solid diet. Constipated. OBJECTIVE: Physical Exam General: Obese, 48 year-old male lying in bed in no apparent distress. HEENT: Normocephalic, atraumatic. Eyes: Anicteric sclerae, conjunctivae clear. ENT: Nasal septum midline, oral mucosa is moist. Neck supple. Respiratory: Bilaterally clear breath sounds. No use of accessory muscles of respiration. No adventitious breath sounds. Cardiovascular: S1, S2 heard. No murmurs or gallops. Abdomen: Soft, nontender, and nondistended. Bowel sounds positive in all 4 quadrants. Genitourinary: Deferred. Extremities: No cyanosis, no clubbing, no edema. Peripheral pulses palpable. Neurologic: Cranial nerves II through XII grossly intact. The patient is awake, alert, and oriented. Skin: Normal skin turgor. No skin rashes. Labs & Vitals per chart ASSESSMENT & PLAN 48-year-old male with comorbidities including hyperlipidemia, hypertension, diabetes mellitus, and obesity, who went to the [facility] emergency room with chief complaint of abdominal pain, was found to have evidence of underlying acute pancreatitis and acute kidney injury, who was transferred to [facility] for further evaluation because of insurance reasons. 1. Severe acute pancreatitis. Most probably secondary to underlying hypertriglyceridemia. Continue IV hydration. Started on clears on 09/19/2018. 2. Acute nonoliguric kidney injury. Most probably secondary to underlying ATN. Being followed by nephrology. Continue IV hydration. Use nephrotoxic drugs with caution. 3. Hypocalcemia. Most probably secondary to underlying pancreatitis. Replete as necessary. 4. Dyslipidemia with hypertriglyceridemia. S/P insulin gtt. Continue gemfibrozil and fish oil. 5. DM type 2. Uncontrolled. S/P insulin gtt. Continue SSI with basal and premeal insulin. Being followed by endocrinology. 6. Hypertension. Continue antihypertensives. 7. Alcoholism. Last drink 3 weeks ago. Verbalized desire to remain sober. 8. Obesity. BMI 32 kg/m. Status post dietary consult. Reinforced weight reduction. 9. MRSA colonization of the nares. Continue Bactroban. 10. Hyperbilirubinemia. Etiology unclear. Possibly from underlying acute pancreatitis. Avoid hepatotoxic medications. 11. Normocytic anemia. Etiology could be multifactorial including underlying iron deficiency. Continue iron supplements. 12. Medication non-compliance. Counseling. 13. Fluids, electrolytes, and nutrition. Continue IV hydration. Advanced to regular consistency diet on 09/21/2018. 14. DVT prophylaxis. Bilateral SCDs. 15. Plan. Continue IV hydration. Transfuse 1 unit of PRBC today. Start a bowel regimen. Disposition: To home once his H&H is improved. The patient was seen in collaboration with Dr. Ko. Result Diagram: 09/22/18 0529 09/22/18 0529 Results 24hrs Laboratory Tests Test 09/21/18 13:16 09/21/18 17:52 09/21/18 19:42 09/21/18 20:43 Bedside Glucose 158 149 133 158 Test 09/22/18 05:29 09/22/18 08:11 White Blood Count 9.6 Red Blood Count 2.42 L Hemoglobin 6.8 *L Hematocrit 20.3 L Mean Corpuscular 83.9 Volume Mean Corpuscular 28.1 L Hemoglobin Mean Corpuscular 33.5 Hemoglobin Concent Red Cell 13.6 Distribution Width Platelet Count 198 Mean Platelet Volume 9.2 Immature 3.300 H Granulocytes % Neutrophils % 79.6 H Lymphocytes % 9.1 L Monocytes % 6.2 Eosinophils % 1.5 Basophils % 0.3 Nucleated Red Blood 0.0 Cells % Immature 0.320 H Granulocytes # Neutrophils # 7.7 H Lymphocytes # 0.9 Monocytes # 0.6 Eosinophils # 0.1 Basophils # 0.0 Nucleated Red Blood 0.0 Cells # Sodium Level 136 Potassium Level 3.6 Chloride Level 104 Carbon Dioxide Level 24 Anion Gap 8 Blood Urea Nitrogen 11 Creatinine 1.21 Est Glomerular > 60 Filtrat Rate mL/min Glucose Level 116 # Calcium Level 8.5 Phosphorus Level 4.7 Magnesium Level 1.7 Lipase 345 H Bedside Glucose 142 Exam/Review of Systems Exam Vitals Vital Signs Date Temp Pulse Resp B/P (MAP) Pulse Ox O2 O2 Flow FiO2 Time Delivery Rate 09/22/18 99.6 114 11:06 6/27/19 20 134/79 94 Room Air 08:01 (97) 09/21/18 2.0 15:40 Intake and Output 09/21/18 09/21/18 09/22/18 1515:00 23:00 07:00 IntakeIntake Total 240 ml 550 ml 600 ml OutputOutput Total 4 ml 400 ml BalanceBalance 236 ml 150 ml 600 ml Results Results 24hrs Laboratory Tests Test 09/21/18 13:16 09/21/18 17:52 09/21/18 19:42 09/21/18 20:43 Bedside Glucose 158 149 133 158 Test 09/22/18 05:29 09/22/18 08:11 White Blood Count 9.6 Red Blood Count 2.42 L Hemoglobin 6.8 *L Hematocrit 20.3 L Mean Corpuscular 83.9 Volume Mean Corpuscular 28.1 L Hemoglobin Mean Corpuscular 33.5 Hemoglobin Concent Red Cell 13.6 Distribution Width Platelet Count 198 Mean Platelet Volume 9.2 Immature 3.300 H Granulocytes % Neutrophils % 79.6 H Lymphocytes % 9.1 L Monocytes % 6.2 Eosinophils % 1.5 Basophils % 0.3 Nucleated Red Blood 0.0 Cells % Immature 0.320 H Granulocytes # Neutrophils # 7.7 H Lymphocytes # 0.9 Monocytes # 0.6 Eosinophils # 0.1 Basophils # 0.0 Nucleated Red Blood 0.0 Cells # Sodium Level 136 Potassium Level 3.6 Chloride Level 104 Carbon Dioxide Level 24 Anion Gap 8 Blood Urea Nitrogen 11 Creatinine 1.21 Est Glomerular > 60 Filtrat Rate mL/min Glucose Level 116 # Calcium Level 8.5 Phosphorus Level 4.7 Magnesium Level 1.7 Lipase 345 H Bedside Glucose 142 Medications Medication Current Medications IV Flush (NS 3 ml) 3 ml PER PROTOCOL IV ; Start 09/15/18 at 16:30 Ondansetron HCl (Zofran Inj) 4 mg Q6H PRN IV NAUSEA/VOMITING Last administered on 09/17/18at 17:41; Admin Dose 4 MG; Start 09/15/18 at 16:30 Acetaminophen (Tylenol Tab) 650 mg Q6H PRN PO .PAIN 1-3 OR TEMP; Start 09/15/18 at 16:30 Acetaminophen (Tylenol Supp) 650 mg Q6H PRN [place] .PAIN 1-3 OR TEMP Last administered on 09/15/18 20:06; Admin Dose 650 MG; Start 09/15/18 at 16:30 Famotidine (Pepcid Iv) 20 mg Q12 IV Last administered on 09/22/18 08:53; Admin Dose 20 MG; Start 09/15/18 at 21:00 Hydromorphone HCl (Dilaudid) 2 mg Q3H PRN IV SEVERE PAIN LEVEL 7-10 Last administered on 09/22/18 10:28; Admin Dose 2 MG; Start 09/16/18 at 18:00 Insulin Glargine (Lantus) 24 units DAILY@2000 SC Last administered on 09/21/18 19:50; Admin Dose 24 UNITS; Start 09/17/18 at 20:00 Miscellaneous Information 1 ea NOTE XX ; Start 09/17/18 at 13:00 Glucose (Glutose) 15 gm Q15M PRN PO DECREASED GLUCOSE; Start 09/17/18 at 13:00 Glucose (Glutose) 22.5 gm Q15M PRN PO DECREASED GLUCOSE; Start 09/17/18 at 13:00 Dextrose (D50w Syringe) 25 ml Q15M PRN IV DECREASED GLUCOSE; Start 09/17/18 at 13:00 Dextrose (D50w Syringe) 50 ml Q15M PRN IV DECREASED GLUCOSE; Start 09/17/18 at 13:00 Glucagon (Glucagen) 1 mg Q15M PRN IM DECREASED GLUCOSE; Start 09/17/18 at 13:00 Glucose (Glutose) 15 gm Q15M PRN BUCCAL DECREASED GLUCOSE; Start 09/17/18 at 13:00 Methadone HCl (Methadone Liq (Ped)) 2 mg Q4 PO Last administered on 09/22/18at 09:52; Admin Dose 2 MG; Start 09/17/18 at 21:00 Gemfibrozil (Lopid) 600 mg BID PO Last administered on 09/22/18 10:29; Admin Dose 600 MG; Start 09/17/18 at 21:00 Fish Oil (Fish Oil) 2,000 mg BID PO Last administered on 09/22/18 08:53; Admin Dose 2,000 MG; Start 09/17/18 at 21:00 Levalbuterol (Xopenex Neb) 1.25 mg Q3H RESP THERAPY PRN HHN SHORTNESS OF BREATH Last administered on 09/18/18 03:12; Admin Dose 1.25 MG; Start 09/18/18 at 03:00 Ipratropium [place] (Atrovent 0.02% (Neb)) 0.5 mg Q3H RESP THERAPY PRN HHN SHORTNESS OF BREATH Last administered on 09/18/18 03:12; Admin Dose 0.5 MG; Start 09/18/18 at 03:00 Mupirocin (Bactroban) 1 applic BID TOP Last administered on 09/22/18 10:29; Admin Dose 1 APPLIC; Start 09/18/18 at 21:00 Amlodipine Besylate (Norvasc) 2.5 mg DAILY PO Last administered on 09/22/18 08:54; Admin Dose 2.5 MG; Start 09/20/18 at 09:00 Insulin Aspart (Novolog Insulin Pen) (Adult SC Insulin - Mild Algorithm)... AC MEALS AND BEDTIME SC Last administered on 09/22/18 08:21; Admin Dose 1 UNIT; Start 09/19/18 at 11:00 Insulin Aspart (Novolog Insulin Pen) 6 unit WITH MEALS SC Last administered on 09/22/18 08:22; Admin Dose 6 UNIT; Start 09/21/18 at 17:55 Polyethylene Glycol (Miralax) 17 gm DAILY PO Last administered on 09/22/18 08:54; Admin Dose 17 GM; Start 09/22/18 at 03:30 Docusate Sodium (Colace) 100 mg BID PO Last administered on 09/22/18 08:54; Admin Dose 100 MG; Start 09/22/18 at 03:30 KADIE ADAME NP Sep 22, 2018 11:20
[2018-09-22] MEDS ORDERED: SOD FERRIC GLUC COMPLX 125 MG in SOD CHLORIDE 0.9% 100 ML IVPB SCH (13:00)
[2018-09-22] MEDS ORDERED: NA PHOSPHATE/BIPHOS 133 ML ENEMA PR ONE (17:00)
--- NOTE | 2018-09-22 18:31 | CONS ---
Assessment/Plan Assessment/Plan Problems: (1) Diabetes mellitus type 2 in obese Status: Chronic Comment: Good glycemic control. Cont. current insulin doses. Consultation Date/Type/Reason Admit Date/Time Sep 15, 2018 at 14:37 Initial Consult Date 09/17/18 Type of Consult Endocrinology Reason for Consultation T2DM OOC Requesting Provider: JADYN DOWLING NP Date/Time of Note DATE: 09/22/18 TIME: 18:30 24 HR Interval Summary Constitutional: poor po (feels stuffed w/ small amounts of food) Detailed Summary Respiratory: no complaints Cardiovascular: no complaints Gastrointestinal: pain (RLQ), decreased appetite; No nausea, No vomiting Genitourinary: no complaints Musculoskeletal: no complaints Neurologic: no complaints Exam/Review of Systems Exam Vitals VS - Last 72 Hours, by Label Date Temp Pulse Resp B/P (MAP) Pulse Ox O2 O2 Flow FiO2 Time Delivery Rate 09/22/18 100.0 100 17 148/95 93 Room Air 14:00 (112) 09/22/18 99.6 114 11:06 09/22/18 98.9 107 20 134/79 94 Room Air 08:01 (97) 09/22/18 98.7 114 17 149/89 95 Room Air 02:25 (109) 09/22/18 99.8 108 18 166/83 94 Room Air 00:23 (110) 09/21/18 99.4 114 20 146/94 94 20:35 (111) 09/21/18 98.0 118 22 143/83 96 Nasal 2.0 15:40 (103) Cannula 09/21/18 114 12:00 09/21/18 100.0 112 22 145/88 96 Room Air 2.0 11:02 (107) 09/21/18 2.0 10:17 09/21/18 122 08:00 09/21/18 98.9 109 22 136/86 93 Nasal 07:15 (103) Cannula 09/21/18 98.9 112 18 158/87 96 04:15 (110) 09/21/18 115 04:01 09/21/18 98.7 110 18 159/89 96 00:24 (112) 09/21/18 125 00:01 09/20/18 98.8 115 18 130/79 96 20:39 (96) 09/20/18 118 20:00 09/20/18 120 16:01 09/20/18 98.0 100 18 147/80 98 16:00 (102) 09/20/18 115 12:01 09/20/18 98.0 117 20 153/90 97 11:52 (111) 09/20/18 112 08:01 09/20/18 98.2 102 18 129/78 98 07:15 (95) 09/20/18 105 04:00 09/20/18 98.9 106 20 125/76 96 04:00 (92) 09/20/18 120 00:00 09/19/18 100.5 110 20 126/65 94 23:51 (85) 09/19/18 121 20:00 09/19/18 99.3 114 20 140/84 94 20:00 (102) Vital Signs Date Temp Pulse Resp B/P (MAP) Pulse Ox O2 O2 Flow FiO2 Time Delivery Rate 09/22/18 100.0 100 17 148/95 93 Room Air 14:00 (112) 09/21/18 2.0 15:40 Intake and Output 09/21/18 09/21/18 09/22/18 1515:00 23:00 07:00 IntakeIntake Total 240 ml 550 ml 600 ml OutputOutput Total 4 ml 400 ml BalanceBalance 236 ml 150 ml 600 ml Constitutional: alert, oriented, well developed, obese Psych: no complaints, nl mood/affect Respiratory: clear to auscultation, normal air movement Cardiovascular: regular rate and rhythm, nl pulses; No edema, No murmurs/extra sounds, No rub Gastrointestinal: bowel sounds, distended, firm, tender (RLQ); No mass, No rebound or guarding Musculoskeletal: nl extremities to inspection Extremities: normal pulses; No cyanosis, No clubbing, No edema Neurological: 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, nl mental status, nl speech, nl strength Additional Comments Bedside Glucose - 72 Hours Test 09/19/18 20:18 09/20/18 08:08 09/20/18 12:12 09/20/18 17:21 Bedside 174 131 156 174 Glucose mg/dL (70-220) mg/dL (70-220) mg/dL (70-220) mg/dL (70-220) Test 09/20/18 19:49 09/21/18 08:13 09/21/18 13:16 09/21/18 17:52 Bedside 197 138 158 149 Glucose mg/dL (70-220) mg/dL (70-220) mg/dL (70-220) mg/dL (70-220) Test 09/21/18 19:42 09/21/18 20:43 09/22/18 08:11 09/22/18 12:31 Bedside 133 158 142 140 Glucose mg/dL (70-220) mg/dL (70-220) mg/dL (70-220) mg/dL (70-220) Test 09/22/18 17:32 Bedside 132 Glucose mg/dL (70-220) Results Result Diagram: 09/22/18 1621 09/22/18 0529 Results 24hrs Laboratory Tests Test 09/21/18 19:42 09/21/18 20:43 09/22/18 05:29 09/22/18 08:11 Bedside Glucose 133 158 142 White Blood Count 9.6 Red Blood Count 2.42 L Hemoglobin 6.8 *L Hematocrit 20.3 L Mean Corpuscular 83.9 Volume Mean Corpuscular 28.1 L Hemoglobin Mean Corpuscular 33.5 Hemoglobin Concent Red Cell 13.6 Distribution Width Platelet Count 198 Mean Platelet Volume 9.2 Immature 3.300 H Granulocytes % Neutrophils % 79.6 H Segmented 81 H Neutrophils % (Manual) Band Neutrophils % 5 H (Manual) Lymphocytes % 9.1 L Lymphocytes % 10 L (Manual) Monocytes % 6.2 Monocytes % (Manual) 3 Eosinophils % 1.5 Eosinophils % 1 (Manual) Basophils % 0.3 Nucleated Red Blood 0.0 Cells % Immature 0.320 H Granulocytes # Neutrophils # 7.7 H Neutrophils # 7.8 H (Manual) Band Neutrophils # 0.4 Lymphocytes (Manual) 0.9 Lymphocytes # 0.9 Monocytes # 0.6 Monocytes # (Manual) 0.2 L Eosinophils # 0.1 Basophils # 0.0 Nucleated Red Blood 0.0 Cells # Platelet Estimate NORMAL Polychromasia 3+ Hypochromasia 1+ Poikilocytosis 1+ Anisocytosis 1+ Sodium Level 136 Potassium Level 3.6 Chloride Level 104 Carbon Dioxide Level 24 Anion Gap 8 Blood Urea Nitrogen 11 Creatinine 1.21 Est Glomerular > 60 Filtrat Rate mL/min Glucose Level 116 # Calcium Level 8.5 Phosphorus Level 4.7 Magnesium Level 1.7 Lipase 345 H Test 09/22/18 12:31 09/22/18 16:21 09/22/18 17:32 Bedside Glucose 140 132 Hemoglobin 7.6 L Hematocrit 22.7 L Medications Medication Current Medications IV Flush (NS 3 ml) 3 ml PER PROTOCOL IV ; Start 09/15/18 at 16:30 Ondansetron HCl (Zofran Inj) 4 mg Q6H PRN IV NAUSEA/VOMITING Last administered on 09/17/18at 17:41; Admin Dose 4 MG; Start 09/15/18 at 16:30 Acetaminophen (Tylenol Tab) 650 mg Q6H PRN PO .PAIN 1-3 OR TEMP; Start 09/15/18 at 16:30 Acetaminophen (Tylenol Supp) 650 mg Q6H PRN [place] .PAIN 1-3 OR TEMP Last administ ered on 09/15/18at 20:06; Admin Dose 650 MG; Start 09/15/18 at 16:30 Hydromorphone HCl (Dilaudid) 2 mg Q3H PRN IV SEVERE PAIN LEVEL 7-10 Last administered on 09/22/18at 16:45; Admin Dose 2 MG; Start 09/16/18 at 18:00 Insulin Glargine (Lantus) 24 units DAILY@2000 SC Last administered on 09/21/18at 19:50; Admin Dose 24 UNITS; Start 09/17/18 at 20:00 Miscellaneous Information 1 ea NOTE XX ; Start 09/17/18 at 13:00 Glucose (Glutose) 15 gm Q15M PRN PO DECREASED GLUCOSE; Start 09/17/18 at 13:00 Glucose (Glutose) 22.5 gm Q15M PRN PO DECREASED GLUCOSE; Start 09/17/18 at 13:00 Dextrose (D50w Syringe) 25 ml Q15M PRN IV DECREASED GLUCOSE; Start 09/17/18 at 13:00 Dextrose (D50w Syringe) 50 ml Q15M PRN IV DECREASED GLUCOSE; Start 09/17/18 at 13:00 Glucagon (Glucagen) 1 mg Q15M PRN IM DECREASED GLUCOSE; Start 09/17/18 at 13:00 Glucose (Glutose) 15 gm Q15M PRN BUCCAL DECREASED GLUCOSE; Start 09/17/18 at 13:00 Gemfibrozil (Lopid) 600 mg BID PO Last administered on 09/22/18 10:29; Admin Dose 600 MG; Start 09/17/18 at 21:00 Fish Oil (Fish Oil) 2,000 mg BID PO Last administered on 09/22/18 08:53; Admin Dose 2,000 MG; Start 09/17/18 at 21:00 Levalbuterol (Xopenex Neb) 1.25 mg Q3H RESP THERAPY PRN HHN SHORTNESS OF BREATH Last administered on 09/18/18 03:12; Admin Dose 1.25 MG; Start 09/18/18 at 03:00 Ipratropium [place] (Atrovent 0.02% (Neb)) 0.5 mg Q3H RESP THERAPY PRN HHN SHORTNESS OF BREATH Last administered on 09/18/18 03:12; Admin Dose 0.5 MG; Start 09/18/18 at 03:00 Mupirocin (Bactroban) 1 applic BID TOP Last administered on 09/22/18 10:29; Admin Dose 1 APPLIC; Start 09/18/18 at 21:00 Insulin Aspart (Novolog Insulin Pen) (Adult SC Insulin - Mild Algorithm)... AC MEALS AND BEDTIME SC Last administered on 09/22/18 08:21; Admin Dose 1 UNIT; Start 09/19/18 at 11:00 Insulin Aspart (Novolog Insulin Pen) 6 unit WITH MEALS SC Last administered on 09/22/18 12:33; Admin Dose 6 UNIT; Start 09/21/18 at 17:55 Polyethylene Glycol (Miralax) 17 gm DAILY PO Last administered on 09/22/18 08:54; Admin Dose 17 GM; Start 09/22/18 at 03:30 Docusate Sodium (Colace) 100 mg BID PO Last administered on 09/22/18 08:54; Admin Dose 100 MG; Start 09/22/18 at 03:30 Ferric Sodium Gluconate Complex 125 mg/Sodium Chloride 100 ml @ 100 mls/hr DAILY@1300 IVPB Last administered on 09/22/18 16:44; Admin Dose 100 MLS/HR; Start 09/22/18 at 13:00; Stop 09/24/18 at 13:59 Metoprolol Tartrate (Lopressor) 12.5 mg BID PO ; Start 09/22/18 at 21:00 Famotidine (Pepcid) 20 mg BID PO ; Start 09/22/18 at 21:00 IDA GONZALEZ MD Sep 22, 2018 18:31
[2018-09-22] MEDS ORDERED: FAMOTIDINE 20 MG TAB ONE (19:44)
[2018-09-22] MEDS ORDERED: METOPROLOL 25 MG TAB ONE (19:45)
[2018-09-22] MEDS: INSULIN GLARGINE [LANTus] (100 UNITS/ML) SYG SC SCH (20:07)
[2018-09-22] MEDS: FAMOTIDINE 20 MG TAB PO SCH (20:09)
[2018-09-22] MEDS: METOPROLOL 25 MG TAB PO SCH (20:09)
[2018-09-23] MEDS: HYDROmorphONE 1 MG/ML SYG IV PRN ×4 (02:11→12:13)
[2018-09-23 02:12] VITALS: BP 147/83; PULSE 99; RESP 19
[2018-09-23] MEDS: Insulin NOVOLOG SS MILD Algorithm (SS with meals and bedtime) SC SCH ×2 (07:47→11:30)
[2018-09-23] MEDS: INSULIN ASPART [NOVOLOG] 3 ML PEN SC SCH ×2 (07:49→12:06)
[2018-09-23] MEDS: METOPROLOL 25 MG TAB PO SCH (08:38)
[2018-09-23] MEDS: GEMFIBROZIL 600 MG TAB PO SCH (08:38)
[2018-09-23] MEDS: MUPIROCIN 2% 22 GM OINT TOP SCH (08:38)
[2018-09-23] MEDS: FISH OIL 1,000 MG CAP PO SCH (08:38)
[2018-09-23] MEDS: FAMOTIDINE 20 MG TAB PO SCH (08:38)
--- NOTE | 2018-09-23 08:45 | PN ---
DATE: 09/23/2018 SUBJECTIVE: The patient is complaining about some mild abdominal bloating. Mild pain. No other augusto nts noted. OBJECTIVE: VITAL SIGNS: Blood pressure is 147/83, respiration 18, pulse 99, temperature 99.5. HEENT: Head is normocephalic. NECK: Supple. HEART: Regular rate. LUNGS: Show diminished breath sounds at the base. ABDOMEN: Soft, mild tenderness to palpation. EXTREMITIES: Negative for clubbing, cyanosis, no edema. DERMATOLOGIC: No rashes. MUSCULOSKELETAL: No joint effusions. NEUROLOGIC: No change in exam. MEDICATIONS: Have been reviewed. LABORATORY DATA: Has been reviewed. IMAGING STUDIES: Have been reviewed. ASSESSMENT AND PLAN: 1. Nonoliguric acute kidney injury with previously normal baseline creatinine. Etiology is secondar y to acute tubular necrosis. Renal function has been fluctuating but overall improved. Continue cur rent treatment plan, supportive care, renally dose all medication. 2. Anemia. Monitor hemoglobin and hematocrit levels. 3. Mineral bone disorder. Monitor calcium and phosphorus levels. 4. Severe pancreatitis, improving. Patient tolerating p.o., continue to monitor. 5. Diabetes. Continue current insulin regimen. 6. History of ETOH disease. 7. Hypertriglyceridemia. Continue medical management. 8. Abdominal pain, distention possibly due to flatus. Continue Simethicone. Consider repeat imagin g study. Dictated By: OTONIEL NASCIMENTO DO NR/NTS Conf#: [id number] DID#: [id number] CC: BRANDY MARTINEZ MD;*EndCC*
[2018-09-23 08:52] VITALS: BP 136/89; PULSE 99; RESP 16
[2018-09-23] MEDS: DOCUSATE SODIUM 100 MG CAP PO SCH (08:52)
[2018-09-23] MEDS: POLYETHYLENE GLYCOL 17 GM PACKET PO SCH (08:52)
[2018-09-23] MEDS ORDERED: OMEG100024 PO (12:19)
[2018-09-23] MEDS ORDERED: METO-448 PO (12:19)
[2018-09-23] MEDS ORDERED: GEMF600T8 PO (12:19)
[2018-09-23] MEDS ORDERED: LANC1KIT83 MC (12:30)
[2018-09-23] MEDS ORDERED: NOVO3I SC (12:30)
[2018-09-23] MEDS ORDERED: FER325 PO (12:30)
[2018-09-23] MEDS ORDERED: Insulin Glargine SC (12:30)
[2018-09-23] MEDS ORDERED: BLOO-432 MC (12:30)
[2018-09-23] MEDS ORDERED: BLOO1EAC85 MC (12:30)
[2018-09-23] MEDS ORDERED: PEN1DIS. MC (12:30)
[2018-09-23] MEDS ORDERED: INSU100I33 SC (12:31)
--- NOTE | 2018-09-23 12:33 | PDOCDIS ---
Discharge Instructions CONDITION [id number] Patient Condition: [id number] Stable HOME CARE INSTRUCTIONS: [id number] Special Diet: [id number] Low carbohydrate, low-cholesterol FOLLOW UP/APPOINTMENTS Follow-up Plan Follow-up with your primary care physician 1 week. OTHER ORDERS: Other Orders: 1. Take medications as per prescription. 2. Follow a low-cholesterol, low carbohydrate diet. 3. Resume activities as tolerated. 4. Abstain from using alcohol. 5. Please follow-up with your primary care physician in 1 week. 6. Please go to the nearest emergency room or if you have significant abdominal pain, persistent nausea/vomiting, persistent fevers, or any other unusual signs/symptoms. KADIE ADAME NP Sep 23, 2018 12:33
--- NOTE | 2018-09-23 15:54 | DS ---
Date/Time of Note Date/Time of Note DATE: 09/23/18 TIME: 15:46 Discharge Summary Admission/Discharge Info Admit Date/Time Sep 15, 2018 at 14:37 Discharge Date/Time Sep 23, 2018 at 13:32 Discharge Diagnosis 1. S/P severe acute pancreatitis. 2. Acute nonoliguric kidney injury. 3. Dyslipidemia with hypertriglyceridemia. 4. DM type 2. A1C 6.6. 5. Hypertension. 6. Alcoholism. 7. Obesity. BMI 32 kg/m. 8. MRSA colonization of the nares. 9. Normocytic anemia. 10. Medication non-compliance. Patient Condition: Stable Consults 1. Gonzalo Soto DO, Nephrology. 2. Min Sarah MD, Endocrinology. Procedures CT Abdomen & Pelvis IMPRESSION: 1. Severe acute pancreatitis. No loculated peripancreatic fluid collection. 2. Moderate hepatic steatosis. 3. No evidence of bowel obstruction, mass or lymphadenopathy. Renal US IMPRESSION: 1 . Normal renal size. No hydronephrosis. Hx of Present Illness This is a 48-year-old male with comorbidities including hyperlipidemia, hypertension, diabetes mellitus, and obesity, who went to the local emergency room with chief complaint of abdominal pain, who was found to have evidence of underlying acute pancreatitis and acute kidney injury, who was transferred to [facility] for further evaluation because of insurance reasons. Hospital Course The patient had evidence of severe acute pancreatitis that required intensive care unit monitoring. The patient had evidence of significant hypertriglyceridemia with a triglyceride level of greater than 1575. The patien t was started on insulin IV with improvement in the patient's underlying hypertriglyceridemia. The patient's pancreatitis could have been most probably secondary to his underlying hypertriglyceridemia. Although the patient is alcoholic, he denied any alcohol abuse in the past 3 weeks. The patient also had underlying acute nonoliguric kidney injury, possibly secondary to underlying acute tubular necrosis from underlying pancreatitis. Nephrology was following the patient. Nephrotoxic drugs were avoided on this patient. The patient had significant episodes hypocalcemia that was repleted as necessary. Nephrology was following the patient as mentioned earlier. As far as his hypertriglyceridemia is concerned, it was initially treated with insulin drip with improvement and the patient was maintained on fibrates and fish oil. The patient had evidence of uncontrolled diabetes mellitus type 2. The patient was maintained on insulin drip. Once the patient's insulin drip was off, the patient was maintained on sliding scale insulin along with basal insulin. Once the patient was started on a diet, the patient was started on pre-meal insulin too. The patient was started on clear liquid diet on 09/19/2018 and the diet was advanced as tolerated to regular consistency diet without any significant gastrointestinal symptoms. The patient had few episodes of low- grade fevers. The patient's dewitt cultures remained negative. The patient did not have any evidence of underlying sepsis. The patient was noticed to have hypertension. The patient was not on any antihypertensives at home. The patient was started on appropriate antihypertensives. Patient also had MRSA colonization of the nares that was treated with Bactroban to the nares. The patient is alcoholic and he has been not been drinking for approximately 3 weeks and he verbalized the desire to remain sober. The patient also had underlying normocytic anemia. Etiology of this could be multifactorial. The patient was also noticed to have evidence of iron deficiency. The patient was provided with IV iron supplements. The patient received 1 unit of PRBC transfusion during this hospitalization. The patient stool for OB x1 was negative. The patient is also noncompliant with his medications. The patient was advised multiple times on the importance of being compliant with medications. The patient had a stable hospital course. 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 The patient's primary care physician is at [facility]. Discharge Instructions 1. Take medications as per prescription. 2. Follow a low-cholesterol, low carbohydrate diet. 3. Resume activities as tolerated. 4. Abstain from using alcohol. 5. Please follow-up with your primary care physician in 1 week. 6. Please go to the nearest emergency room or if you have significant abdominal pain, persistent nausea/vomiting, persistent fevers, or any other unusual signs/symptoms. The patient verbalized understanding of his discharge instructions. At this time I would like to thank all the consultants for seeing the patient and providing clinical recommendations. The patient was seen in collaboration with Dr. Ko. Home Meds Active Scripts Insulin Glargine,Hum.rec.anlog (Basaglar Kwikpen U-100) 100 Unit/1 Ml Insuln.pen, 24 UNIT SC QHS, #1 EA Prov:KADIE ADAME NP 09/23/18 Blood Glucose Strips-Dispmeter (Sidekick Blood Glucose System) 1 Each Kit, EACH , #150 Prov:KADIE ADAME LINCOLN 09/23/18 Lancing Device/Lancets (ACCU-CHEK FASTCLIX LANCET KIT) 1 Each Kit, EACH TID, #1 Prov:KADIE ADAME LINCOLN 09/23/18 Blood-Glucose Meter (Blood Glucose Meter) 1 Each Each, EACH TID, #1 Prov:KADIE ADAME NP 09/23/18 Pen Needle, Diabetic, Safety (PEN NEEDLE) 1 Each Dis.needle, EACH TIDM A, #150 Prov:ALDENLEOBARDOKADIE NP 09/23/18 Ferrous Sulfate* (Ferrous Sulfate*) 325 Mg Tabec, 325 MG PO BID, #60 TAB Prov:KADIE ADAME NP 09/23/18 Insulin Aspart* (Novolog Insulin Pen*) 100 Unit/Ml Soln, 6 UNIT SC WITH MEALS, #1 UNIT Prov:DEEPKADIE NP 09/23/18 [Insulin Glargine] 100 UNITS/ML SOLN No Conflict Check, 24 UNITS SC DAILY@1999, #1 UNIT Prov:DEEPKADIE NP 09/23/18 Metoprolol Tartrate* (Lopressor*) 25 Mg Tab, 12.5 MG PO BID for 30 Days, #15 TAB 12.5 mg (1/2 tablet) BID. Prov:KADIE ADAME NP 09/23/18 Isabella-3/Dha/Epa/Fish Oil (Fish Oil 1,000 mg Softgel) 1,000 Mg Capsule, 2000 MG PO BID for 30 Days, #120 CAP 2000 mg (2 capsules) Prov:KADIE ADAME NP 09/23/18 Gemfibrozil* (Gemfibrozil*) 600 Mg Tablet, 600 MG PO BID, #60 TAB Prov:KADIE ADAME NP 09/23/18 Omeprazole* (Omeprazole*) 40 Mg Capsule.dr, 40 MG PO DAILY, #14 CAP Prov:OSBALDO CEDENO MD 07/16/18 Discontinued Scripts Ondansetron Hcl* (Zofran*) 8 Mg Tablet, 8 MG PO Q6H PRN for NAUSEA AND OR VOMITING, #20 TAB Prov:OSBALDO CEDENO MD 07/16/18 Ranitidine Hcl* (Zantac*) 150 Mg Tablet, 150 MG PO BID PRN for EPIGASTRIC PAIN, #30 TAB Prov:CHATO ODOM. 06/15/18 Sucralfate* (Carafate*) 1 Gm Tab, 1 GM PO QID, #30 TAB Prov:CHATO ODOM 06/15/18 Follow-up Plan Follow-up with your primary care physician 1 week. Primary Care Provider Not On Staff Doctor Time spent on discharge: > 30 minutes Pending Labs Laboratory Tests Test 09/22/18 16:21 09/22/18 17:32 09/22/18 18:00 09/22/18 20:05 Hemoglobin 7.6 g/dl (14.0-18.0 ) Hematocrit 22.7 % (42.0-52.0) Bedside 132 141 Glucose mg/dL (70-220) mg/dL (70-220) Stool Occult NEGATIVE (NEGA Blood TIVE) Test 09/22/18 21:09 09/23/18 05:18 09/23/18 06:53 09/23/18 07:45 Bedside 147 172 Glucose mg/dL (70-220) mg/dL (70-220) White Blood 9.9 Count 10^3/ul (4.8-1 0.8) Red Blood 2.76 Count 10^6/ul (4.70- 6.10) Hemoglobin 7.7 g/dl (14.0-18. 0) Hematocrit 23.5 % (42.0-52.0) Mean 85.1 Corpuscular fl (82.0-101.0 Volume ) Mean 27.9 Corpuscular pg (29.0-33.0) Hemoglobin Mean 32.8 Corpuscular g/dl (32.0-37. Hemoglobin Conc 0) ent Red Cell 13.6 Distribution % (11.5-14.5) Width Platelet Count 231 10^3/UL (140-4 15) Mean Platelet 9.2 Volume fl (7.4-10.4) Immature 3.900 Granulocytes % % (0.001-0.429 ) Neutrophils % 81.0 % (39.0-77.0) Lymphocytes % 8.0 % (15.0-51.0) Monocytes % 5.4 % (0.0-11.0) Eosinophils % 1.4 % (0.0-7.0) Basophils % 0.3 % (0.0-2.0) Nucleated Red 0.0 Blood Cells % /100WBC (0.0-0 .0) Immature 0.390 Granulocytes # 10^3/ul (0.0-0 .031) Neutrophils # 8.0 10^3/ul (1.6-7 .5) Lymphocytes # 0.8 10^3/ul (0.8-2 .9) Monocytes # 0.5 10^3/ul (0.3-0 .9) Eosinophils # 0.1 10^3/ul (0.0-0 .5) Basophils # 0.0 10^3/ul (0.0-0 .1) Nucleated Red 0.0 Blood Cells # 10^3/ul (0.0-0 .0) Sodium Level 138 mmol/L (135-14 4) Potassium 3.9 Level mmol/L (3.5-5. 1) Chloride Level 101 mmol/L (97-110 ) Carbon Dioxide 26 Level mmol/L (21-31) Anion Gap 11 (5-13) Blood Urea 10 Nitrogen mg/dl (7-20) Creatinine 1.26 mg/dl (0.61-1. 24) Est Glomerular > 60 Filtrat mL/min (>60) Rate mL/min Glucose Level 140 mg/dl (70-220) Calcium Level 8.9 mg/dl (8.4-10. 2) Phosphorus 4.3 Level mg/dl (2.5-4.9 ) Magnesium 1.7 Level mg/dl (1.7-2.5 ) Total 0.8 Bilirubin mg/dl (0.2-1.3 ) Direct 0.00 Bilirubin mg/dl (0.00-0. 20) Indirect 0.8 Bilirubin mg/dl (0-1.1) Aspartate Amino 35 Transf (AST/SGO IU/L (15-46) T) Alanine 17 Aminotransferas IU/L (13-69) e (ALT/SGPT) Alkaline 139 Phosphatase IU/L (42-121) Total Protein 6.5 g/dl (6.1-8.1) Albumin 3.2 g/dl (3.3-4.9) Globulin 3.30 g/dl (1.3-3.2) Albumin/Globuli 0.96 n Ratio Lab Scanned BLOOD TRANSFUS Report ION Test 09/23/18 12:03 Bedside 90 Glucose mg/dL (70-220) KADIE ADAME NP Sep 23, 2018 15:54
== END 2018-09-23 13:32 | disposition home or self-care (01) | DRG 438 ==
LOC: 2NE 14:37 → ICU 09-16 13:16 → TEL 09-19 17:10 → PP2 09-21 23:57
PROVIDERS: ADMIT Internal Medicine; ATTEND Hospitalist
DX: K85.90 Acute pancreatitis without necrosis or infection, unspecified (principal); N17.0 Acute kidney failure with tubular necrosis; E87.1 Hypo-osmolality and hyponatremia; E87.2 Acidosis; E83.42 Hypomagnesemia; E83.39 Other disorders of phosphorus metabolism; E11.9 Type 2 diabetes mellitus without complications; D64.9 Anemia, unspecified; E87.5 Hyperkalemia; E83.51 Hypocalcemia; E78.1 Pure hyperglyceridemia; F10.20 Alcohol dependence, uncomplicated; I10 Essential (primary) hypertension; E80.6 Other disorders of bilirubin metabolism; E66.9 Obesity, unspecified; Z68.32 Body mass index [BMI] 32.0-32.9, adult; Z79.4 Long term (current) use of insulin; Z91.14 Patient's other noncompliance with medication regimen
CPT/HCPCS: 36430; 36600; 70360; 74018; 74176; 76775; 80048; 80053; 80061; 81001; 81003; 82010; 82043; 82270; 82330; 82607; 82728; 82746; 82803; 82962; 83036; 83540; 83605; 83615; 83690; 83735; 84100; 84155; 84300; 84436; 84443; 84479; 85014; 85018; 85025; 86850; 86900; 86901; 86920; 87081; 87086; 94640; 94664; J0610; J1170; J1815; J1885; J2185; J2405; J2916; J3475; J3480; J7030; J7040; J7050; P9016

== ENCOUNTER 2018-11-15 08:37 | Emergency (ER) | payer OTHER ==
[~2018-11-15] VITALS: Ht 172.7 cm; Wt 88.3 kg
[~2018-11-15 08:37] MED LIST changes: +BLOO-432 MC; +BLOO1EAC85 MC; +FER325 PO; +GEMF600T8 PO; +INSU100I33 SC; +Insulin Glargine SC; +LANC1KIT83 MC; +METO-319 PO; +METO-448 PO; +NOVO3I SC; +OMEG100024 PO; -ONDA8TAB9 PO; +PEN1DIS. MC; -RANI150T35 PO; -SUCR1TAB56 PO
[2018-11-15 08:38] VITALS: Ht 172.7 cm; Wt 88.3 kg
[2018-11-15] MEDS ORDERED: LIDOCAINE/MYLANTA 40 ML BTL PO STA (12:15)
[2018-11-15] MEDS ORDERED: BELLADONNA/PHENOBARBITAL TAB PO STA (12:15)
[2018-11-15] MEDS ORDERED: LACTATED RINGER'S 1,000 ML IV STA (12:15)
[2018-11-15] MEDS ORDERED: ONDANSETRON 4 MG INJ IV STA (12:15)
[2018-11-15] MEDS ORDERED: FAMOTIDINE 20 MG TAB PO STA (12:15)
[2018-11-15] MEDS ORDERED: LORAZEPAM 1 MG TAB PO ONE (12:30)
[2018-11-15 14:44] VITALS: BP 150/87; PULSE 81; RESP 17
== END 2018-11-15 14:45 | disposition home or self-care (01) ==
LOC: E/R 08:37
DX: I10 Essential (primary) hypertension (principal); E11.9 Type 2 diabetes mellitus without complications; E66.9 Obesity, unspecified; F10.230 Alcohol dependence with withdrawal, uncomplicated; Z79.4 Long term (current) use of insulin; Z68.29 Body mass index [BMI] 29.0-29.9, adult
CPT/HCPCS: 36415; 80053; 83690; 85025; 96374; J2405; J7120; Z7502; Z7610

== ENCOUNTER 2018-12-23 11:37 | Emergency (ER) | payer OTHER ==
[~2018-12-23] VITALS: Wt 90.0 kg
[~2018-12-23 11:37] MED LIST changes: +METO-335 PO; +OMEP40CA38 PO; -OMEP40CA6 PO; +ONDA4TAB8 PO
[2018-12-23] MEDS ORDERED: LACTATED RINGER'S 1,000 ML IV STA (13:39)
[2018-12-23] MEDS ORDERED: ONDANSETRON 4 MG INJ IV STA (13:39)
[2018-12-23] MEDS ORDERED: LIDOCAINE/MYLANTA 40 ML BTL PO STA (13:39)
[2018-12-23] MEDS ORDERED: FAMOTIDINE 20 MG TAB PO STA (13:39)
[2018-12-23] MEDS ORDERED: BELLADONNA/PHENOBARBITAL TAB PO STA (13:39)
[2018-12-23] MEDS ORDERED: LORAZEPAM 1 MG TAB PO ONE (14:00)
[2018-12-23 14:50] VITALS: BP 136/72; PULSE 84; RESP 18
== END 2018-12-23 15:04 | disposition home or self-care (01) ==
LOC: E/R 11:37
DX: F10.230 Alcohol dependence with withdrawal, uncomplicated (principal); F15.10 Other stimulant abuse, uncomplicated; I10 Essential (primary) hypertension; E11.9 Type 2 diabetes mellitus without complications; E66.9 Obesity, unspecified; Z79.4 Long term (current) use of insulin
CPT/HCPCS: 80053; 83690; 84484; 85025; 93005; 96374; J2405; J7120; Z7502; Z7610